=== PATIENT | female | born 1960 | race Caucasian/White ===

== ENCOUNTER 2019-08-09 08:00 | Outpatient (RCR) | payer OTHER, MEDICAID ==
[2019-08-09 11:52] LABS: BILIRUBIN,URINE NEGATIVE (NEGATIVE); CLARITY,URINE CLEAR; COLOR,URINE YELLOW; GLUCOSE, URINE (UA) NEGATIVE (NEGATIVE); KETONES,URINE NEGATIVE (NEGATIVE); LEUKOCYTE ESTERASE ,URINE 1+ (NEGATIVE); NITRITE,URINE NEGATIVE (NEGATIVE); PH,URINE 7 (5-9); PROTEIN,URINE 1+ (NEGATIVE)
[2019-08-09 11:58] LABS: BACTERIA,URINE NEGATIVE /HPF; WBC,URINE 0-2 /HPF
[2019-08-09 12:01] LABS: HEMOGLOBIN 12.8 G/DL (11.5-16.0); MEAN PLATELET VOLUME 9.5 FL (7.4-10.4); RED CELL DISTRIBUTION WIDTH 13.8 % (10.0-14.5); WHITE BLOOD COUNT 4.5 10^3/uL (4.3-11.0)
[2019-08-09 12:20] LABS: ALANINE AMINOTRANSFERASE 25 U/L (0-55); ALKALINE PHOSPHATASE 131 U/L (40-136); BILIRUBIN,TOTAL 0.3 MG/DL (0.1-1.0); BUN/CREATININE RATIO 13; CALCIUM 9.9 MG/DL (8.5-10.1); CARBON DIOXIDE 24 MMOL/L (21-32); CHLORIDE 99 MMOL/L (98-107); CHOLESTEROL 294 MG/DL (< 200); CREATININE SERUM 0.72 MG/DL (0.60-1.30); GFR ESTIMATED > 60; GLUCOSE 104 MG/DL (70-105); HDL CHOLESTEROL 83 MG/DL (40-60); POTASSIUM 4.2 MMOL/L (3.6-5.0); SODIUM 134 MMOL/L (135-145); TOTAL PROTEIN 6.9 GM/DL (6.4-8.2); TRIGLYCERIDES 141 MG/DL (<150); VLDL CHOLESTEROL 28 MG/DL (5-40)
== END 2019-11-07 | disposition home or self-care (01) ==
LOC: LAB 08:00 → EDSTATUS 08-13 15:16 → LAB 08-13 15:16
PROVIDERS: ATTEND Family Medicine
DX: F31.9 Bipolar disorder, unspecified (principal); R19.7 Diarrhea, unspecified; R31.9 Hematuria, unspecified
CPT/HCPCS: 36415; 80053; 80061; 81000; 84443; 85027; 87324; 87449; 87493

== ENCOUNTER 2020-01-10 18:46 | Emergency (ER) | payer OTHER, MEDICAID ==
[~2020-01-10] VITALS: Ht 164 cm; Wt 69.0 kg
[2020-01-10 19:35] VITALS: BP_SYST 126; BP_SYST 149; BP_SYST 153; BP_DIAS 74; BP_DIAS 86; BP_DIAS 88
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
[2020-01-10 19:42] LABS: BASOPHILS % (AUTO) 1 % (0-10); EOSINOPHILS # (AUTO) 0.1 10^3/uL (0.0-0.3); EOSINOPHILS % (AUTO) 1 % (0-10); HEMATOCRIT 41 % (35-52); HEMOGLOBIN 14.2 G/DL (11.5-16.0); LYMPHOCYTES # (AUTO) 1.5 X 10^3 (1.0-4.0); LYMPHOCYTES % (AUTO) 36 % (12-44); MEAN CORPUSCULAR HEMOGLOBIN 34 PG (25-34); MEAN CORPUSCULAR HGB CONC 35 G/DL (32-36); MEAN CORPUSCULAR VOLUME 97 FL (80-99); MEAN PLATELET VOLUME 10.6 FL (7.4-10.4); MONOCYTES # (AUTO) 0.5 X 10^3 (0.0-1.0); MONOCYTES % (AUTO) 11 % (0-12); NEUTROPHILS # (AUTO) 2.1 X 10^3 (1.8-7.8); NEUTROPHILS % (AUTO) 51 % (42-75); PLATELET COUNT 294 10^3/uL (130-400); RED CELL DISTRIBUTION WIDTH 14.6 % (10.0-14.5); WHITE BLOOD COUNT 4.1 10^3/uL (4.3-11.0)
[2020-01-10 19:54] LABS: ALANINE AMINOTRANSFERASE 19 U/L (0-55); ALBUMIN 4.2 GM/DL (3.2-4.5); ALKALINE PHOSPHATASE 97 U/L (40-136); BILIRUBIN,TOTAL 0.2 MG/DL (0.1-1.0); BUN/CREATININE RATIO 16; CALCIUM 9.2 MG/DL (8.5-10.1); CARBON DIOXIDE 20 MMOL/L (21-32); CHLORIDE 103 MMOL/L (98-107); CREATININE SERUM 0.76 MG/DL (0.60-1.30); GFR ESTIMATED > 60; GLUCOSE 95 MG/DL (70-105); POTASSIUM 3.9 MMOL/L (3.6-5.0); SODIUM 134 MMOL/L (135-145); TOTAL PROTEIN 6.8 GM/DL (6.4-8.2)
[2020-01-10] MEDS ORDERED: LACTATED RINGERS 1,000 ML IV ONE ×2 (19:58→19:59)
--- NOTE | 2020-01-10 20:00 | NUR ---
patients daughter Candelaria called. Patient verbalized this nurse can not give her any information.
[2020-01-10 20:52] LABS: BILIRUBIN,URINE NEGATIVE (NEGATIVE); CLARITY,URINE CLEAR; COLOR,URINE YELLOW; GLUCOSE, URINE (UA) NEGATIVE (NEGATIVE); KETONES,URINE NEGATIVE (NEGATIVE); LEUKOCYTE ESTERASE ,URINE NEGATIVE (NEGATIVE); NITRITE,URINE NEGATIVE (NEGATIVE); PH,URINE 6.5 (5-9); PROTEIN,URINE NEGATIVE (NEGATIVE)
[2020-01-10 20:59] LABS: BACTERIA,URINE TRACE /HPF; RBC,URINE 0-2 /HPF
--- NOTE | 2020-01-10 21:00 | NUR ---
ASSUMED PRIMARY NURSE ROLE, ATTEMPTED TO RETRIEVE STOOL CULTURE FROM PT. PT STATES SHE DID NOT FEEL LIKE SHE HAD TO GO AT THIS TIME.
[2020-01-10] MEDS ORDERED: ONDA4TAB11 PO (21:44)
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
[2020-01-10 22:46] VITALS: BP 153/85
--- OUTSIDE RECORDS SUMMARY | 2020-01-12 22:14 | XMS REPORT | Continuity of Care Document ---
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 Role Phone STAFF, NON PCP Unavailable Insurance Providers Guarantor Azul Madden Address [address] [place] [address] Payer [place] Policy Number [id number] Subscriber's Name Azul Madden Roby Relationship 18 Self / Same As Patient Effective Date [facility] Policy Number [id number] Subscriber's Name Gala Madden Relationship 01 Spouse Advance Directives Directive Response Recorded Date/Time Advance Directives No 09/01/17 4:31pm Name of DPOA CAMRYN,DAUGHTER 09/01/17 4:31pm DPOA Relationship to Patient DAUGHTER 09/01/17 4: 31pm DPOA 09/01/17 4:31pm Chief Complaint and Reason for Visit Chief Complaint Abdominal Pain Reason for Visit UTI (urinary tract infection ) Problems Medical Problem Onset Date Status Agitation Unknown Acute Anxiety Unknown Chronic Bipolar disorder Unknown Chronic Chronic back pain greater than 3 months duration Unknown Chronic Past Problems Medical Problem Onset Date Status Bronchitis Unknown Acute COPD (chronic obstructive pulmonary disease) Unknown Acute COPD exacerbation Unknown Acute Change in mental status Unknown Acute Confusion Unknown Acute Dementia Unknown Acute Hypercholesteremia Unknown Acute Hypoxia Unknown Acute Milo toxicity Unknown Acute Nasal congestion Unknown Acute Pneumonia Unknown Acute Suicide attempt Unknown Acute UTI (urinary tract infection) Unknown Acute Medications Current Home Medications Medication Dose Units Route Directions Days Qty Instructio ns Start Date Advair Discus Inhalation Twice A Day Albuterol (Albuterol Sulfate Neb) 2.5 Mg/3 Ml Vial.neb 1 Vial Nebulize Every 4-6 Hours As Needed as needed for Shortness Of Breath/Wheezing 25 Days 02/10/18 Folic Acid 1 Mg Tablet 1 Mg Oral Daily 30 Tablet Gabapentin Oral Bedtime Ibuprofen Oral Every 4 Hours As Needed Lorazepam 0.5 Mg Tablet 0.5 Mg Oral Three Times A Day Melatonin Oral Bedtime Oxcarbazepine Oral Twice A Day Quetiapine Fumarate (Seroquel) 100 Mg Tablet 100 Mg Oral Lisset ly Quetiapine Fumarate (Seroquel) 300 Mg Tablet 300 Mg Oral Bed time Salmeterol Xinafoate/Fluticasone (Advair Diskus) 250 Mcg/50 Mcg Disk 1 Puff Inhalation Twice A Day 1 Inhaler RINSE MOUTH AFTER USE Thiamine Hcl 100 Mg Tablet 100 Mg Oral Daily Trimethoprim/Sulfamethoxazole (Bactrim Ds) 800 Mg/160 Mg Tablet 1 Tablet Oral Every 12 Hours 14 Tablet 11/16/18 Ventolin Inhaler Inhalation Every 6 Yolanda rs As Needed as needed for For Air Hunger Past Home Medications Medication Directions Ordered Status Acetaminophen/Hydrocodone Bitart (Pledger) 5 Mg/325 Mg T ablet, 1-2 Tablet Oral Every 4-6 Hours As Needed as needed for For Pain Disco ntinued Albuterol (Ventolin Hfa) 90 Mcg Hfa.aer.ad, 2 Puff Inh alation Every 4-6 Hours As Needed as needed for For Coughing 07/17/17 Discontinued Amitriptyline Hcl 25 Mg Tablet, 25 Mg Oral Bedtime 09/03 Discontinued Amitriptyline Hcl 25 Mg Tablet, 25-100 Mg Oral Bedtime Discontinued Amoxicillin 875 Mg Tablet, 875 Mg Oral Every 12 Hours 07/17/17 Discontinued Atrovastatin , Oral Bedtime Discontinu ed Azithromycin (Zithromax) 250 Mg Tablet, 250 Mg Oral Daily 02/10/18 Discontinued Azithromycin 250 Mg Tablet, 250 Mg Oral Daily 09/03/17 Discontinued Baclofen 10 Mg Tablet, 10 Mg Oral Twice A Day 09/03/17 Discontinued Baclofen 20 Mg Tablet, 10-20 Mg Oral Twice A Day Discontinued Bupropion Hcl (Bupropion Hcl Er (Sr)) 150 Mg Tab.er.12 h, 150 Mg Oral Twice A Day Discontinued Cefdinir 300 Mg Capsule, 300 Mg Oral Twice A Day 09/03/17 Discontinued Cetirizine Hcl (Zyrtec) 10 Mg Tablet, 10 Mg Oral Daily 07/17/17 Discontinued Clonazepam 1 Mg Tablet, 0.5-1 Mg Oral Three Times A Day Discontinued Clonazepam (Klonopin) 1 Mg Tablet, 1 Mg Oral Twice A Day 09/18 Discontinued Gabapentin 400 Mg Capsule, 400 Mg Oral Three Times A Day 7 Discontinued Gabapentin 400 Mg Capsule, 400 Mg Oral Three Times A Day Discontinued Hydroxyzine Hcl 50 Mg Tablet, 50 Mg Oral Four Times Daily Discontinued Levothyroxine Sodium (Synthroid) 25 Mcg Tablet, 25 Mcg Oral Otis y 06/12/17 Discontinued Levothyroxine Sodium (Synthroid) 25 Mcg Tablet, 25 Mcg Oral Otis y Discontinued Milo Carbonate (Milo Carbonate Er) 300 Mg Tablet.er, 3 00 Mg Oral Bedtime 09/03/17 Discontinued Milo Carbonate (Milo Carbonate Er) 450 Mg Tablet.er, 4 50 Mg Oral Bedtime Discontinued Milo Carbonate (Milo Carbonate Er) 450 Mg Tablet.er, 4 50 Mg Oral Daily 06/12/17 Discontinued Milo Carbonate (Milo Carbonate Er) 450 Mg Tablet.er, 450 M g Oral Daily Discontinued Lorazepam (Ativan) 1 Mg Tablet, 1 Mg Oral Three Times A Day as needed for For Anxiety 06/12/17 Discontinued Lorazepam (Ativan) 1 Mg Tablet, 1 Mg Oral Three Times A Day Discontinued Meloxicam 15 Mg Tablet, 15 Mg Oral Daily 06/12/17 Discontinued Meloxicam 15 Mg Tablet, 15 Mg Oral Daily Discontinued Naltrexane , Oral Daily Discontinued Prazosin Hcl 2 Mg Capsule, 2 Mg Oral Bedtime Discontinued Prazosin Hcl 2 Mg Capsule, 2 Mg Oral Daily 06/12/17 Discontinued Prazosin Hcl 2 Mg Capsule, 2 Mg Oral Daily Discontinued Prednisone 20 Mg Tablet, 40 Mg Oral Daily 07/16/18 Discontinued Prednisone (Prednisone 40 Mg Burst) 20 Mg Tablet, 40 Mg Oral Lisset ly 02/10/18 Discontinued Prednisone 20 Mg Tablet, 20 Mg Oral Twice A Day 07/17/17 Discontinued Quetiapine Fumarate (Seroquel) 50 Mg Tablet, 50 Mg Oral Thre e Times A Day 06/12/17 Discontinued Quetiapine Fumarate (Seroquel) 50 Mg Tablet, 50 Mg Oral Three Ti mes A Day Discontinued Salmeterol Xinafoate/Fluticasone (Advair Diskus) 250 Mcg/50 Mcg Disk, 1 Puff Inhalation Twice A Day 06/12/17 Discontinued Salmeterol Xinafoate/Fluticasone (Advair Diskus) 100 Mcg/50 Mcg Disk, 1 Puff Inhalation Twice A Day Discontinued Tramadol Hcl 50 Mg Tablet, 75 Mg Oral Four Times Daily Discontinued Trazodone Hcl 150 Mg Tablet, 150 Mg Oral Bedtime Discontinued Trazodone Hcl 150 Mg Tablet, 150 Mg Oral Daily 7 Discontinued Trazodone Hcl 150 Mg Tablet, 150 Mg Oral Daily Discontinued Social History Social History Problem Response Recorded Date/Time Onset Date Status Marital Status 11/16/2018 2:59pm Not Applicable Not Ap plicable Smoking Status Start Date Stop Date Current every day smoker Hospital Discharge Instructions No hospital discharge instruction information available. Plan of Care Discharge Date 11/16/18 5:45pm Disposition 01 HOME/SELF CARE Condition at Discharge Good Instructions/Education Provided ED UTI Cystitis Female Prescriptions See Medication Section Referrals STAFF,NON Functional Status No functional status information available. Allergies, Adverse Reactions, Alerts Allergen Type Severity Reaction Status Last Updated Morphine Allergy Intermediate vomiting Active 07/16/18 Immunizations No immunization information available. Vital Signs Acute Vital Signs Vital Response Date/Time Height (Feet) 5 feet 11/16/2018 2:56pm Height (Inches) 4.00 inches 11/16/2018 2:56pm Height (Calculated Centimeters) 162.147792 cm 11/16/19 2:56pm Weight (Pounds) 155.0 11/16/2018 2:56pm Weight (Calculated Kilograms) 70.628393 kg 11/16/2018 2:56pm Weight (Calculated Grams) 92424.818 gm 11/16/2018 2:5 6pm Body Mass Index (BMI) 26 11/16/2018 2:56pm Body Mass Index (BMI) Classification Overweight 2:56pm Temperature (Fahrenheit) 98.6 degrees F (96.8 - 100.4) 11/16 2:56pm Blood Pressure Systolic 181 mm Hg (100 - 140) 11/16/2018 3:0 3pm Blood Pressure Diastolic 57 mm Hg (60 - 100) 11/16/2018 3:03 pm Pulse Rate (adult) 101 beats per minute (60 - 100) 11/16/19 3:03pm Respiratory Rate 17 breaths per minute (12 - 24) 07/16/20 4:20pm Respirations 20 breaths per minute (12 - 20) 01/15/20 19 2:56pm O2 Sat by Pulse Oximetry 97 % (90 - 100) 11/16/2018 2:56 pm Ambulatory Vital Signs Vital Response Date/Time Weight 161 lbs 4 oz 07/16/2018 3:25pm Temperature, Tympanic 97.4 degrees F 07/16/2018 3:25pm Blood Pressure, Sitting, Left Arm 120/70 mm Hg 2017 3:25pm Pulse Rate 97 bpm 07/16/2018 3:25pm Respiration Rate 18 bpm 07/16/2018 3:25pm Pulse Oximetry Pulse Oximetry 07/16/2018 3:25pm Results Laboratory Results Test Name Result Units Flags Reference Collection Date/Time Result Date/Time Comments Influenza Type A Antigen NEG NEGATIVE 02/10/2018 8:0 6pm 02/10/2018 8:44pm Influenza Type B Antigen NEG NEGATIVE 02/10/2018 8:0 6pm 02/10/2018 8:44pm Cholesterol Level 330 MG/DL H 150-200 07/16/2018 9:00am 07/03 10:13am Triglycerides Level 204 MG/DL H 30-200 07/16/2018 9:00am 10:13am HDL Cholesterol 72 MG/DL H 35-60 07/16/2018 9:00am 2017 10:13am LDL Cholesterol 218 MG/DL H <100 07/16/2018 9:00am 2017 10:13am VLDL Cholesterol, Calculated 41 H 5-40 07/16/2018 9:00am 07/16/2018 10:13am Cholesterol/HDL Ratio 5 % 0-5 07/16/2018 9:00am 07/16/2018 10:13am Prolactin 6.5 ng/mL 4.8-23.3 07/16/2018 9:00am 07/17/2018 7:09am Performed at: DA - [facility] [place] [id number] [facility] [address], [place], [place] [id number] Intelligence Specialist: ERLINDA Tao MD, Phone: [phone] Thyroid Stimulating Hormone (TSH) 1.12 MIU/L 0.35-4 .94 07/16/2018 9:00am 07/16/2018 5:11pm White Blood Count 5.2 X10-3/UL 4.8-10.8 11/16/2018 3:47pm 4:05pm Red Blood Count 4.25 X10-6/UL 4.20-5.40 11/16/2018 3:47pm 4:05pm Hemoglobin 14.1 G/DL 12.0-16.0 11/16/2018 3:47pm 9 4:05pm Hematocrit 43.7 % 37.0-47.0 11/16/2018 3:47pm 9 4:05pm Mean Corpuscular Volume 103.0 FL H 80.0-99.0 2018 3:47pm 11/16/2018 4:05pm Mean Corpuscular Hemoglobin 33.3 PG H 27.0-31.0 3:47pm 11/16/2018 4:05pm Mean Corpuscular Hemoglobin Concent 32.3 G/DL L 33.0 -37.0 11/16/2018 3:47pm 11/16/2018 4:05pm Red Cell Distribution Width 13.7 % 11.5-14.5 3:47pm 11/16/2018 4:05pm Platelet Count 277 X10-3/UL 130-400 11/16/2018 3:47pm 2018 4:05pm Neutrophils (%) (Auto) 64.1 % 40.0-75.0 11/16/2018 3:47 pm 11/16/2018 4:05pm Lymphocytes (%) (Auto) 23.7 % 18.0-47.0 11/16/2018 3:47 pm 11/16/2018 4:05pm Monocytes (%) (Auto) 10.5 % H 0.0-10.0 11/16/2018 3:47pm 11/16/2018 4:05pm Eosinophils (%) (Auto) 0.2 % 0.0-6.0 11/16/2018 3:47pm 11/16/2018 4:05pm Basophils (%) (Auto) 1.4 % 0.0-2.0 11/16/2018 3:47pm 0 11/16/2018 4:05pm Neutrophils # (Auto) 3.3 X10-3/UL 1.9-8.1 11/16/2018 3:47pm 11/16/2018 4:05pm Lymphocytes # (Auto) 1.2 X10-3/UL 0.9-5.1 11/16/2018 3:47pm 11/16/2018 4:05pm Monocytes # (Auto) 0.5 X10-3/UL 0.1-0.9 11/16/2018 3:47pm 4:05pm Eosinophils # (Auto) 0.0 X10-3/UL 0.0-0.6 11/16/2018 3:47pm 11/16/2018 4:05pm Basophils # (Auto) 0.1 X10-3/UL 0.0-0.2 11/16/2018 3:47pm 4:05pm Glucose Level 102 MG/DL 70-105 11/16/2018 3:47pm 11/16/19 19 4:21pm Blood Urea Nitrogen 14.0 MG/DL 9.8-20.1 11/16/2018 3:47pm 0 11/16/2018 4:21pm Creatinine 0.84 MG/DL 0.57-1.11 11/16/2018 3:47pm 9 4:21pm BUN/Creatinine Ratio 17 10-20 11/16/2018 3:47pm 0 11/16/2018 4:21pm Aspartate Amino Transf (AST/SGOT) 21 U/L 5-34 11/16/2018 3:47pm 11/16/2018 4:21pm Alanine Aminotransferase (ALT/SGPT) 19 U/L 0-55 11/16/2018 3:47pm 11/16/2018 4:21pm Alkaline Phosphatase 82 IU/L 40-150 11/16/2018 3:47pm 0 11/16/2018 4:21pm Total Bilirubin 0.20 MG/DL 0.0-1.0 11/16/2018 3:47pm 2018 4:21pm Total Protein 6.9 G/DL 6.4-8.3 11/16/2018 3:47pm 11/16/19 19 4:21pm Albumin 3.8 g/dL 3.5-5.0 11/16/2018 3:47pm 11/16/2018 4:2 1pm Albumin/Globulin Ratio 1.2 1.0-2.0 11/16/2018 3:47pm 11/16/2018 4:21pm Globulin 3.1 G/DL 1.9-3.8 11/16/2018 3:47pm 11/16/2018 4: 21pm Calcium Level 9.3 MG/DL 8.4-10.2 11/16/2018 3:47pm 019 4:21pm Sodium Level 140 MMOL/L 136-145 11/16/2018 3:47pm 9 4:21pm Potassium Level 4.1 MMOL/L 3.5-5.1 11/16/2018 3:47pm 2018 4:21pm Chloride Level 106 MMOL/L 98-107 11/16/2018 3:47pm 019 4:21pm Carbon Dioxide Level 23.0 MMOL/L 22-29 11/16/2018 3:47pm 0 11/16/2018 4:21pm Anion Gap 15 MEQ/L H 0-14 11/16/2018 3:47pm 11/16/2018 4 :21pm Troponin I < 0.02 NG/ML 0.00-0.06 11/16/2018 3:47pm 9 4:21pm TROPONIN I <=0.06 ng/mL Negative 0.07-0.25 ng/mL Intermediate >0.25 ng/mL Positive >0.6 ng/mL Critical Troponin I is cardiac specific. If present, indicates injury has occurred, indicating need to R/O myocardial infarct or high risk unstable angina (UA). Lipase 43 U/L 8-78 11/16/2018 3:47pm 11/16/2018 4:2 1pm Urine Color YELLOW YELLOW 11/16/2018 4:35pm 11/16/2018 5:03pm Urine Clarity SL CLOUDY CLEAR 11/16/2018 4:35pm 2018 5:03pm Urine pH 5.5 4.5-7.5 11/16/2018 4:35pm 11/16/2018 5: 03pm Urine Specific [place] 1.020 1.002-1.030 11/16 4:35pm 11/16/2018 5:03pm Urine Protein NEGATIVE NEGATIVE 11/16/2018 4:35pm 2018 5:03pm Urine Glucose (UA) NEGATIVE NEGATIVE 11/16/2018 4:35pm 0 11/16/2018 5:03pm Urine Ketones NEGATIVE NEGATIVE 11/16/2018 4:35pm 2018 5:03pm Urine Blood 1+ NEGATIVE 11/16/2018 4:35pm 9 5:03pm Urine Nitrate NEGATIVE NEGATIVE 11/16/2018 4:35pm 2018 5:03pm Urine Bilirubin NEGATIVE NEGATIVE 11/16/2018 4:35pm 11/02 5:03pm Urine Urobilinogen 0.2 EU/DL 0.2 11/16/2018 4:35pm 5:03pm Urine Leukocyte Esterase 1+ NEGATIVE 11/16/2018 4:3 5pm 11/16/2018 5:03pm Urine RBC 2-5 /HPF NONE SEEN 11/16/2018 4:35pm 11/16/2018 5:08pm Urine WBC 7-10 /HPF NONE SEEN 11/16/2018 4:35pm 11/16/2018 5:08pm Urine Bacteria 1+ /HPF NONE SEEN 11/16/2018 4:35pm 11/16 5:08pm Urine Squamous Epithelial Cells 2-5 /HPF 11/16/2018 4:35pm 11/16/2018 5:08pm Urine Transitional Epithelial Cells 0-2 /HPF 11/16/2018 4:35pm 11/16/2018 5:08pm Urine Mucus 1+ /HPF 11/16/2018 4:35pm 11/16/2018 5:08pm Urine Culture Reflexed YES H 11/16/2018 4:35pm 11/16/2018 5:08pm URINE CULTURE WAS SENT TO [facility]. Procedures Procedure Status Date Provider(s) X-RAY EXAM CHEST 1 VIEW Completed 07/16/18 ASSAY THYROID STIM HORMONE Completed 07/16/18 ASSAY OF TROPONIN QUANT Completed 07/16/18 ELECTROCARDIOGRAM TRACING Completed 07/16/18 ELECTROCARDIOGRAM REPORT Completed 07/16/18 EMERGENCY DEPT VISIT Completed 07/16/18 EMERGENCY DEPT VISIT Completed 07/16/18 Aerosol treatment by respiratory therapy Completed 8 YEN BUTLER PA-C X-ray of chest, PA and lateral views Completed 02/10/18 YEN BUTLER PA-C 2D M-mode echocardiography with color flow Completed 04/15 JACINDA RIVERO MD Electrocardiogram tracing Completed 07/16/18 NUBIA DENNIS MD X-ray of chest, single view Completed 07/16/18 NUBIA SEXTON MD Encounters Encounter Location Arrival/Admit Date Discharge/Depart Date Attending Provider Departed Emergency Room [facility] 11/16/18 2:44pm 11/16/18 5:45pm NUBIA DENNIS MD Departed Emergency Room [facility] 07/16/18 3:51pm 07/16/18 5:30pm NUBIA DENNIS MD Registered Practice [facility] 07/16/18 2:55pm TODD HARGROVE CNC MAINTENANCE TECHNICIAN Office Visit [facility] 07/16/18 2:55pm TODD HARGROVE CNC MAINTENANCE TECHNICIAN Registered Clinic [facility] 07/16/18 8:55am EMMANUEL ESCOTO Registered Clinic [facility] 04/15/18 1:09pm JACINDA EASON MD Departed Emergency Room [facility] 02/10/18 7:10pm 02/10/18 9:34pm YEN BUTLER PA-C Recent Diagnosis
--- OUTSIDE RECORDS SUMMARY | 2020-01-12 22:14 | XMS REPORT | Continuity of Care Document ---
Author Author [facility] Organization [facility] Address Unknown Phone Unavailable Care Team Providers Care Poultry Killer Name Role Phone STAFF, NON PCP Unavailable Insurance Providers Guarantor Azul Madden Address [address] [place] [address] [facility] Policy Number [id number] Subscriber's Name Azul Madden Relationship 18 Self / Same As Patient Effective Date 17 [facility] Policy Number [id number] Subscriber's Name Gala Madden Relationship 01 Spouse Advance Directives Directive Response Recorded Date/Time Advance Directives No 09/01/17 4:31pm Name of DPOA CAMRYN,DAUGHTER 09/01/17 4:31pm DPOA Relationship to Patient DAUGHTER 09/01/17 4: 31pm DPOA 09/01/17 4:31pm Chief Complaint and Reason for Visit Chief Complaint Genitourinary (Female) Reason for Visit Constipation Biliary colic Problems Medical Problem Onset Date Status Agitation Unknown Acute Anxiety Unknown Chronic Bipolar disorder Unknown Chronic Chronic back pain greater than 3 months duration Unknown Chronic Past Problems Medical Problem Onset Date Status Biliary colic Unknown Acute Bronchitis Unknown Acute COPD (chronic obstructive pulmonary disease) Unknown Acute COPD exacerbation Unknown Acute Change in mental status Unknown Acute Confusion Unknown Acute Dementia Unknown Acute Hypercholesteremia Unknown Acute Hypoxia Unknown Acute [place] toxicity Unknown Acute Nasal congestion Unknown Acute Pneumonia Unknown Acute Suicide attempt Unknown Acute UTI (urinary tract infection) Unknown Acute Medications Current Home Medications Medication Dose Units Route Directions Days Qty Instructio ns Start Date Albuterol (Albuterol Sulfate Neb) 2.5 Mg/3 Ml Vial.neb 1 Vial Nebulize Every 4-6 Hours As Needed as needed for Shortness Of Breath/Wheezing 25 Days 02/10/18 Gabapentin Oral Bedtime Ibuprofen 600 Mg Tablet 600 Mg Oral As N eeded, Up To 3 Times Daily as needed for For Fever/Pain 30 Tablet 12/09/18 Lactulose 10 Gm/15 Ml Solution 30 Ml Oral Three Times A Day as needed for For Constipation 300 Milliliter 12/19/18 Lorazepam 0.5 Mg Tablet 0.5 Mg Oral Three Times A Day Magnesium Citrate 296 Ml Solution 296 Ml Oral Give Now 1 Bottle 12/19/18 Melatonin Oral Bedtime Oxcarbazepine Oral Twice A Day Oxcarbazepine 300 Mg Tablet 600 Mg Oral Bedtime Polyethylene Glycol (Miralax) 119 Gm Powder 17 Gm Oral Otis y 119 Gram 12/09/18 Quetiapine Fumarate (Seroquel) 100 Mg Tablet 100 Mg Oral Lisset ly Quetiapine Fumarate (Seroquel Xr) 400 Mg Tab.er.24h 400 Mg Oral Every Evening Salmeterol Xinafoate/Fluticasone (Advair Diskus) 250 Mcg/50 Mcg Disk 1 Puff Inhalation Twice A Day 1 Inhaler RINSE MOUTH AFTER USE Thiamine Hcl 100 Mg Tablet 100 Mg Oral Daily Ventolin Inhaler Inhalation Every 6 Yolanda rs As Needed as needed for For Air Hunger Past Home Medications Medication Directions Ordered Status Acetaminophen/Hydrocodone Bitart ([place]) 5 Mg/325 Mg T ablet, 1-2 Tablet Oral Every 4-6 Hours As Needed as needed for For Pain Disco ntinued Advair Discus , Inhalation Twice A Day Dis continued Albuterol (Ventolin Hfa) 90 Mcg Hfa.aer.ad, 2 [...] Tablet, 10 Mg Oral Daily 07/17/17 Discontinued Ciprofloxacin 500 Mg/5 Ml Ermelinda.mc.rec, 500 Mg Oral Every 12 Hours 12/09/18 Discontinued Ciprofloxacin Hcl (Cipro) 500 Mg Tablet, 500 Mg Oral Every 12 Ho urs 12/09/18 Discontinued Clonazepam 1 Mg Tablet, 0.5-1 Mg Oral Three Times A Day Discontinued Clonazepam (Klonopin) 1 Mg Tablet, 1 Mg Oral Twice A Day 09/18 Discontinued Folic Acid 1 Mg Tablet, 1 Mg Oral Daily Discontinued Gabapentin 400 Mg Capsule, 400 Mg Oral Three Times A Day 7 Discontinued Gabapentin 400 Mg Capsule, 400 Mg Oral Three Times A Day Discontinued Hydroxyzine Hcl 50 Mg Tablet, 50 Mg Oral Four Times Daily Discontinued Ibuprofen , Oral Every 4 Hours As Needed Disco ntinued Levothyroxine Sodium (Synthroid) 25 Mcg Tablet, 25 Mcg Oral Otis y 06/12/17 Discontinued Levothyroxine Sodium (Synthroid) 25 Mcg Tablet, 25 Mcg Oral Otis y Discontinued [place] Carbonate ([place] Carbonate Er) 300 Mg Tablet.er, 3 00 Mg Oral Bedtime 09/03/17 Discontinued [place] Carbonate ([place] Carbonate Er) 450 Mg Tablet.er, 4 50 Mg Oral Bedtime Discontinued [place] Carbonate ([place] Carbonate Er) 450 Mg Tablet.er, 4 50 Mg Oral Daily 06/12/17 Discontinued [place] Carbonate ([place] Carbonate Er) 450 Mg Tablet.er, 450 M [...] A Day 07/17/17 Discontinued Quetiapine Fumarate (Seroquel) 300 Mg Tablet, 300 Mg Oral Bedtim e Discontinued Quetiapine Fumarate (Seroquel) 50 Mg Tablet, [...] Mg Tablet, 150 Mg Oral Daily Discontinued Trimethoprim/Sulfamethoxazole (Bactrim Ds) 800 Mg/160 Mg Tablet, 1 Tablet Oral Every 12 Hours 11/16/18 Discontinued Social History Social History Problem Response Recorded Date/Time Onset Date Status Marital Status Single 12/19/2018 3:34pm Not Applicable Not Ap plicable Smoking Status Start Date Stop Date Current every day smoker Hospital Discharge Instructions No hospital discharge instruction information available. Plan of Care Discharge Date 12/19/18 4:25pm Disposition 01 HOME/SELF CARE Condition at Discharge Good Instructions/Education Provided Gallstones Constipation Diet High Fiber High Fiber Handout Prescriptions See Medication Section Referrals STAFF,NON Order Date: 3-4 days Note: Additional Instructions/Education continue the miralax start three times a day lactulose-this will get your bowels moving start today taking an entire bottle of magnesium citrate I've sent both of these scripts to [facility] f/u with pcp u/s on thursday for gallbladder as already prescribed. Functional Status No functional status information available. Allergies, Adverse Reactions, Alerts Allergen Type Severity Reaction Status Last Updated Morphine Adverse Reaction Intermediate vomiting Active Immunizations No immunization information available. Vital Signs Acute Vital Signs Vital Response Date/Time Height (Feet) 5 feet 12/19/2018 3:31pm Height (Inches) 4.00 inches 12/19/2018 3:31pm Height (Calculated Centimeters) 162.162926 cm 12/19/19 19 3:31pm Weight (Pounds) 170.0 12/19/2018 3:31pm Weight (Calculated Kilograms) 77.541697 kg 12/19/2018 3:31pm Weight (Calculated Grams) 44493.704 gm 12/19/2018 3:3 1pm Body Mass Index (BMI) 29 12/19/2018 3:31pm Body Mass Index (BMI) Classification Overweight 3:31pm Temperature (Fahrenheit) 98.5 degrees F (96.8 - 100.4) 12/19 3:31pm Blood Pressure Systolic 165 mm Hg (100 - 140) 12/19/2018 3:3 1pm Blood Pressure Diastolic 90 mm Hg (60 - 100) 12/19/2018 3:31 pm Pulse Rate (adult) 98 beats per minute (60 - 100) 9 3:31pm Respiratory Rate 17 breaths per minute (12 - 24) 07/16/20 18 4:20pm Respirations 20 breaths per minute (12 - 20) 12/19/19 19 3:31pm O2 Sat by Pulse Oximetry 97 % (90 - 100) 12/19/2018 3:31 pm Ambulatory Vital Signs Vital Response Date/Time Weight 174 lbs 4 oz 12/09/2018 10:30am Temperature, Tympanic 99.8 degrees F 12/09/2018 10:30am Blood Pressure, Sitting, Left Arm 138/84 mm Hg 2018 10:30am Pulse Rate 109 bpm 12/09/2018 10:30am Respiration Rate 18 bpm 12/09/2018 10:30am Pulse Oximetry Pulse Oximetry 12/09/2018 10:30am Results Laboratory Results Test Name Result Units [...] 4.8-23.3 07/16/2018 9:00am 07/17/2018 7:09am Performed at: - [facility] [address], [place], [place] [id number] Truck Cleaner: ERLINDA Tao MD, Phone: [phone] Thyroid Stimulating Hormone (TSH) 1.12 MIU/L 0.35-4 [...] 8-78 11/16/2018 3:47pm 11/16/2018 4:2 1pm Urine Transitional Epithelial Cells 0-2 /HPF 11/16/2018 4:35pm 11/16/2018 5:08pm Urine Mucus 1+ /HPF 11/16/2018 4:35pm 11/16/2018 5:08pm Urine Color YELLOW YELLOW 12/19/2018 3:50pm 12/19/2018 3:57pm Urine Clarity Clear CLEAR 12/19/2018 3:50pm 12/19/19 19 3:57pm Urine pH 7.5 4.5-7.5 12/19/2018 3:50pm 12/19/2018 3: 57pm Urine Specific [place] 1.015 1.002-1.030 12/19 3:50pm 12/19/2018 3:57pm Urine Protein NEGATIVE NEGATIVE 12/19/2018 3:50pm 2018 3:57pm Urine Glucose (UA) NEGATIVE NEGATIVE 12/19/2018 3:50pm 0 12/19/2018 3:57pm Urine Ketones NEGATIVE NEGATIVE 12/19/2018 3:50pm 2018 3:57pm Urine Blood TRACE-INTACT NEGATIVE 12/19/2018 3:50pm 12/03 3:57pm Urine Nitrate NEGATIVE NEGATIVE 12/19/2018 3:50pm 2018 3:57pm Urine Bilirubin NEGATIVE NEGATIVE 12/19/2018 3:50pm 12/03 3:57pm Urine Urobilinogen 0.2 EU/DL 0.2 12/19/2018 3:50pm 3:57pm Urine Leukocyte Esterase TRACE NEGATIVE 12/19/2018 3:5 0pm 12/19/2018 3:57pm Urine RBC 0-2 /HPF NONE SEEN 12/19/2018 3:50pm 12/19/2018 4:00pm Urine WBC 0-2 /HPF NONE SEEN 12/19/2018 3:50pm 12/19/2018 4:00pm Urine Bacteria TRACE /HPF NONE SEEN 12/19/2018 3:50pm 12/19 4:00pm Urine Squamous Epithelial Cells 0-2 /HPF 12/19/2018 3:50pm 12/19/2018 4:00pm Urine Culture Reflexed YES H 12/19/2018 3:50pm 12/19/2018 4:00pm URINE CULTURE WAS SENT TO [facility]. Ambulatory Laboratory Results Test Name Result Units Flags Reference Result Date/Time Com ments Urine Bilirubin NEGATIVE 12/09/2018 10: 42am Urine Blood MODERATE 12/09/2018 10:42am Urine Clarity cloudy 12/09/2018 10:42 am Urine Color dark yellow 12/09/2018 10:42 am Urine Glucose (UA) NEGATIVE 12/09/2018 10:42am Urine Ketones NEGATIVE 12/09/2018 10:42 am Urine Leukocyte Esterase trace 12/09 10:42am Urine Nitrate neg 12/09/2018 10:42 am Urine pH 6.5 5.0-7.5 12/09/2018 10:42am Urine Protein TRACE 12/09/2018 10:42 am Urine Specific [place] 1.020 1.002-1.030 12/09 10:42am Urine Urobilinogen .2 MG/DL 0.2-1.0 12/09/2018 10:42am Procedures Procedure Status Date Provider(s) X-RAY EXAM [...] single view Completed 07/16/18 NUBIA SEXTON MD X-ray of abdomen, supine and upright views Completed 12/19 PEARL SMITH MD Encounters Encounter Location Arrival/Admit Date Discharge/Depart Date Attending Provider Departed Emergency Room [facility] 12/19/18 3:26pm 12/19/18 4:25pm PEARL SMITH MD Registered Referred [facility] 12/09/18 6:13pm ISABEL CARTER Registered Practice [facility] 12/09/18 10:30am ISABEL CARTER Office Visit [facility] 12/09/18 10:30am ISABEL CARTER Departed Emergency Room [facility] 11/16/18 2:44pm 11/16/18 5:45pm NUBIA DENNIS MD Departed Emergency Room [facility] 07/16/18 3:51pm 07/16/18 5:30pm NUBIA DENNIS MD Office Visit [facility] 07/16/18 2:55pm TODD HARGROVE Registered Clinic [facility] 07/16/18 8:55am EMMANUEL ESCOTO Registered Clinic [facility] 04/15/18 1:09pm JACINDA EASON MD Departed Emergency Room [facility] 02/10/18 7:10pm 02/10/18 9:34pm YEN BUTLER PA-C Recent Diagnosis
--- OUTSIDE RECORDS SUMMARY | 2020-01-12 22:15 | XMS REPORT | Continuity of Care Document ---
Author Author [facility] Organization [facility] Address Unknown Phone Unavailable Care Team Providers Care Senior Behavioral Scientist Name Role Phone STAFF, NON PCP Unavailable Insurance Providers Guarantor ChanoTariqAzul R Address [address] [place] [address] Payer [place] Policy Number [id number] Subscriber's Name Azul Madden Relationship 18 Self / Same As Patient Effective Date [facility] Policy Number [id number] Subscriber's Name Azul Madden Relationship 18 Self / Same As Patient Effective Date 12 Advance Directives Directive Response Recorded Date/Time Advance Directives No 09/01/17 4:31pm Name of DPOA CAMRYN,DAUGHTER 09/01/17 4:31pm DPOA Relationship to Patient DAUGHTER 09/01/17 4: 31pm DPOA 09/01/17 4:31pm Chief Complaint and Reason for Visit Chief Complaint Chest Pain Reason for Visit COPD (chronic obstructive pu lmonary disease) [id number] Problems Medical Problem Onset Date Status Agitation Unknown Acute Anxiety Unknown Chronic Bipolar disorder Unknown Chronic COPD (chronic obstructive pulmonary disease) Unknown Acute Chronic back pain greater than 3 months duration Unknown Chronic Hypercholesteremia Unknown Acute Past Problems Medical Problem Onset Date Status Bronchitis Unknown Acute COPD exacerbation Unknown Acute Change in mental status Unknown Acute Confusion Unknown Acute Dementia Unknown Acute Hypoxia Unknown Acute Red[place] toxicity Unknown Acute Nasal congestion Unknown Acute Pneumonia Unknown Acute Suicide attempt Unknown Acute Medications Current Home Medications Medication [...] Oral Bedtime Oxcarbazepine Oral Twice A Day Prednisone 20 Mg Tablet 40 Mg Oral Daily 7 Days 7 Tablet TAKE 2 TABS DAILY FOR 5 DAYS 07/16/18 Quetiapine Fumarate (Seroquel) 100 Mg Tablet 100 [...] Medications Medication Directions Ordered Status Acetaminophen/Hydrocodone Bitart (Palisade) 5 Mg/325 Mg T ablet, 1-2 Tablet [...] Tablet, 25 Mcg Oral Otis y Discontinued Redbird Smith Carbonate (Redbird Smith Carbonate Er) 300 Mg Tablet.er, 3 00 Mg Oral Bedtime 09/03/17 Discontinued [place] Carbonate (Redbird Smith Carbonate Er) 450 Mg Tablet.er, 4 50 Mg Oral Bedtime Discontinued [place] Carbonate (Redbird Smith Carbonate Er) 450 Mg Tablet.er, 4 50 Mg Oral Daily 06/12/17 Discontinued Redbird Smith Carbonate (Redbird Smith Carbonate Er) 450 Mg Tablet.er, 450 M [...] Capsule, 2 Mg Oral Daily Discontinued Prednisone (Prednisone 40 Mg Burst) 20 [...] Date/Time Onset Date Status Marital Status Single 07/16/2018 4:16pm Not Applicable Not Ap plicable Smoking Status Start Date Stop Date Current every day smoker Hospital Discharge Instructions No hospital discharge instruction information available. Plan of Care Discharge Date 07/16/18 5:30pm Disposition 01 HOME/SELF CARE Condition at Discharge Good Instructions/Education Provided COPD Dx Prescriptions See Medication Section Referrals STAFF,NON Note: Functional Status No functional status information available. Allergies, Adverse Reactions, Alerts Allergen Type Severity Reaction Status Last Updated Morphine Allergy Intermediate vomiting Active 07/16/18 Immunizations No immunization information available. Vital Signs Acute Vital Signs Vital Response Date/Time Height (Feet) 5 feet 07/16/2018 4:09pm Height (Inches) 4.00 inches 07/16/2018 4:09pm Height (Calculated Centimeters) 162.450974 cm 07/16/20 4:09pm Weight (Pounds) 161.0 07/16/2018 4:09pm Weight (Calculated Kilograms) 73.587413 kg 07/16/2018 4:09pm Weight (Calculated Grams) 43634.372 gm 07/16/2018 4:0 9pm Body Mass Index (BMI) 27 07/16/2018 4:09pm Body Mass Index (BMI) Classification Overweight 4:09pm Temperature (Fahrenheit) 98.2 degrees F (96.8 - 100.4) 07/16 5:15pm Blood Pressure Systolic 153 mm Hg (100 - 140) 07/16/2018 5:1 5pm Blood Pressure Diastolic 92 mm Hg (60 - 100) 07/16/2018 5:15 pm Pulse Rate (adult) 83 beats per minute (60 - 100) 8 5:15pm Respiratory Rate 17 breaths per minute (12 - 24) 07/16/20 18 4:20pm Respirations 13 breaths per minute (12 - 20) 07/16/20 18 5:15pm O2 Sat by Pulse Oximetry 98 % (90 - 100) 07/16/2018 5:15 pm Ambulatory Vital Signs Vital Response Date/Time Weight 161 lbs 4 oz 07/16/2018 3:25pm Temperature, Tympanic 97.4 degrees F 07/16/2018 3:25pm Blood Pressure, Sitting, Left Arm 120/70 mm Hg 2017 3:25pm Pulse Rate 97 bpm 07/16/2018 3:25pm Respiration Rate 18 bpm 07/16/2018 3:25pm Pulse Oximetry Pulse Oximetry 07/16/2018 3:25pm Results Laboratory Results Test Name Result Units Flags Reference Collection Date/Time Result Date/Time Comments Macrocytosis 1+ 08/21/2017 9:15am 7 10:28am Hepatitis A IgM Antibody Negative Negative 08/21 9:15am 08/22/2017 11:10am Hepatitis B Core IgM Antibody Negative Negative 08/21/2017 9:15am 08/22/2017 11:10am Hepatitis C Antibody <0.1 s/co ratio 0.0-0.9 08/21/20 17 9:15am 08/22/2017 11:10am Negati ve: < 0.8 Indeterminate: 0.8 - 0.9 Positive: > 0.9 The CDC recommends that a positive HCV antibody result be followed up with a HCV Nucleic Acid Amplification test ([id number]). Performed at: [facility] [id number] Benefit Director: ERLINDA Tao MD, Phone: [phone] Eosinophils % (Manual) 1 % 0-6 09/01/2017 10:54a m 09/01/2017 11:24am Basophils % (Manual) 1 % 0-2 09/01/2017 10:54am 09/01/2017 11:24am Eosinophils # (Manual) 0.1 X10-3/UL 0.0-0.6 017 10:54am 09/01/2017 11:24am Basophils # (Manual) 0.1 X10-3/UL 0.0-0.2 7 10:54am 09/01/2017 11:24am D-Dimer 311 NG/ML 0-400 09/01/2017 10:54am 09/01/2017 1: 29pm Blood Gas Puncture Site RIGHT RADIAL 09/01/2017 1:35pm 09/01/2017 1:48pm FiO2 28 % 09/01/2017 1:35pm 09/01/2017 1:4 8pm Arterial Blood pH 7.40 7.35-7.45 09/01/2017 1:35pm 1:48pm Arterial Blood Partial Pressure CO2 36 mmHg 35-4 8 09/01/2017 1:35pm 09/01/2017 1:48pm Arterial Blood Partial Pressure O2 65 mmHg L 80-10 0 09/01/2017 1:35pm 09/01/2017 1:48pm Arterial Blood Hemoglobin 14.5 g/dL 12.0-16.0 08/04 1:35pm 09/01/2017 1:48pm Arterial Blood Oxygen Saturation 93 % >=95 09/01/2017 1:35pm 09/01/2017 1:48pm Arterial Blood HCO3 22 mmol/L 21-28 09/01/2017 1:35pm 1:48pm Arterial Blood Total CO2 23.2 mmol/L 22-29 09/01 1:35pm 09/01/2017 1:48pm Arterial Blood Base Excess -2.3 mmol/L L -2.0-2.0 1:35pm 09/01/2017 1:48pm Bedside Blood Gas Base Excess ECF -2.8 mmol/L L -2.0-3 .0 09/01/2017 1:35pm 09/01/2017 1:48pm Chandan Test PASS 09/01/2017 1:35pm 09/01/2017 1:48pm N/A 5 /MINS 09/01/2017 1:35pm 09/01/2017 1:4 8pm Hemoglobin (Blood Gas) PROVIDER NOTIFIED OF RESULTS. g/dL 14.0-18.0 09/01/2017 1:35pm 09/01/2017 1:48pm Lactic Acid Level 0.8 MMOL/L 0.5-2.2 09/01/2017 10:54am 1:20pm Ammonia 24.0 UMOL/L 18.2-72.2 09/01/2017 10:54am 09/01/2017 11:15am Urine Amorphous Sediment TRACE /HPF 09/01/2017 10:2 0am 09/01/2017 11:20am Differential Total Cells Counted 100 100 09/07/2017 5:00pm 09/07/2017 6:28pm Neutrophils % (Manual) 85 % H 40-75 09/07/2017 5:00pm 09/07/2017 6:28pm Band Neutrophils % 2 % 0-8 09/07/2017 5:00pm 04/2017 6:28pm Lymphocytes % (Manual) 11 % L 18-47 09/07/2017 5:00pm 09/07/2017 6:28pm Monocytes % (Manual) 2 % 0-10 09/07/2017 5:00pm 1 11/07/2016 6:28pm Neutrophils # (Manual) 9.4 X10-3/UL H 1.9-8.1 017 5:00pm 09/07/2017 6:28pm Band Neutrophils # 0.2 X10-3/UL 0.0-0.9 09/07/2017 5:00pm 6:28pm Lymphocytes # (Manual) 1.2 X10-3/UL 0.9-5.1 017 5:00pm 09/07/2017 6:28pm Monocytes # (Manual) 0.2 X10-3/UL 0.1-0.9 09/07/2017 5:00pm 09/07/2017 6:28pm Red Cell Morphology Comment NORMAL 09/07/2017 5 :00pm 09/07/2017 6:28pm EGFR Other 57.1 * >59 09/07/2017 5:00pm 09/07/2017 6:34pm *RESULT UNITS: ML/MIN/1.73 EGFR 65.8 * >59 09/07/2017 5:00pm 09/07/2017 6:34pm *RESULT UNITS: ML/MIN/1.73 Serum Alcohol < 10 MG/DL <10 09/07/2017 5:00pm 09/07/20 17 6:33pm Acetaminophen Level < 0.6 UG/ML L 10-30 09/07/2017 5:00pm 6:33pm Redbird Smith Level > 3.5 MMOL/L *H 1.0-1.2 09/07/2017 5:00pm 09/07/20 17 6:33pm MICHELINE CALLED TO [facility] IN ED AT 1830 Urine Phencyclidine Screen NEG NEG 09/07/2017 6: 30pm 09/07/2017 6:48pm Urine Benzodiazepines Screen NEG NEG 09/07/2017 6:30pm 09/07/2017 6:48pm Urine Cocaine Screen NEG NEG 09/07/2017 6:30pm 1 11/07/2016 6:48pm Urine Amphetamines Screen NEG NEG 09/07/2017 6:3 0pm 09/07/2017 6:48pm Urine Marijuana (THC) Screen NEG NEG 09/07/2017 6:30pm 09/07/2017 6:48pm Urine Opiates Screen NEG NEG 09/07/2017 6:30pm 1 11/07/2016 6:48pm Urine Barbiturates Screen NEG NEG 09/07/2017 6:3 0pm 09/07/2017 6:48pm Urine Tricyclic Antidepressants POS NEG 09/07/20 17 6:30pm 09/07/2017 6:48pm Chain of Custody COCUST 09/07/2017 6:30pm 09/07 6:48pm Specimen analysis was performed without chain of custody handling. These results should be used for medical purposes only and not for any legal or employment evaluation purposes. Urine Color YELLOW YELLOW 09/07/2017 6:30pm 09/07/2017 6:39pm Urine Clarity Clear CLEAR 09/07/2017 6:30pm 09/07/20 17 6:39pm Urine pH 7.5 4.5-7.5 09/07/2017 6:30pm 09/07/2017 6: 39pm Urine Specific [place] 1.010 1.002-1.030 09/07 6:30pm 09/07/2017 6:39pm Urine Protein NEGATIVE NEGATIVE 09/07/2017 6:30pm 2016 6:39pm Urine Glucose (UA) NEGATIVE NEGATIVE 09/07/2017 6:30pm 1 11/07/2016 6:39pm Urine Ketones TRACE NEGATIVE 09/07/2017 6:30pm 017 6:39pm Urine Blood NEGATIVE NEGATIVE 09/07/2017 6:30pm 09/07/20 17 6:39pm Urine Nitrate NEGATIVE NEGATIVE 09/07/2017 6:30pm 2016 6:39pm Urine Bilirubin NEGATIVE NEGATIVE 09/07/2017 6:30pm 110 04/2017 6:39pm Urine Urobilinogen 0.2 EU/DL 0.2 09/07/2017 6:30pm 04/2017 6:39pm Urine Leukocyte Esterase NEGATIVE NEGATIVE 09/07 6:30pm 09/07/2017 6:39pm Urine RBC NONE SEEN /HPF NONE SEEN 09/07/2017 6:30pm 09/07/20 17 6:49pm Urine WBC NONE SEEN /HPF NONE SEEN 09/07/2017 6:30pm 09/07/20 17 6:49pm Urine Bacteria NONE SEEN /HPF NONE SEEN 09/07/2017 6:30pm 04/2017 6:49pm Urine Squamous Epithelial Cells NONE SEEN /HPF 09/07/2017 6:30pm 09/07/2017 6:49pm Urine Culture Reflexed NO 09/07/2017 6:30pm 09/07/2017 6:49pm C. difficile Toxin B Gene (PCR) NEGATIVE NEGATIVE 09/07/2017 8:30pm 09/07/2017 9:39pm Influenza Type A Antigen NEG NEGATIVE 02/10/2018 8:0 6pm 02/10/2018 8:44pm Influenza Type B Antigen NEG NEGATIVE 02/10/2018 8:0 6pm 02/10/2018 8:44pm White Blood Count 4.2 X10-3/UL L 4.8-10.8 07/16/2018 9:00am 9:49am Red Blood Count 4.57 X10-6/UL 4.20-5.40 07/16/2018 9:00am 9:49am Hemoglobin 14.9 G/DL 12.0-16.0 07/16/2018 9:00 8 9:49am Hematocrit 44.8 % 37.0-47.0 07/16/2018 9:00 8 9:49am Mean Corpuscular Volume 98.2 FL 80.0-99.0 07/16/2018 9:0 0am 07/16/2018 9:49am Mean Corpuscular Hemoglobin 32.6 PG H 27.0-31.0 9:00am 07/16/2018 9:49am Mean Corpuscular Hemoglobin Concent 33.2 G/DL 33.0 -37.0 07/16/2018 9:00am 07/16/2018 9:49am Red Cell Distribution Width 14.8 % H 11.5-14.5 9:00am 07/16/2018 9:49am Platelet Count 307 X10-3/UL 130-400 07/16/2018 9:00am 2017 9:49am Neutrophils (%) (Auto) 62.1 % 40.0-75.0 07/16/2018 9:00 am 07/16/2018 9:49am Lymphocytes (%) (Auto) 26.7 % 18.0-47.0 07/16/2018 9:00 am 07/16/2018 9:49am Monocytes (%) (Auto) 9.3 % 0.0-10.0 07/16/2018 9:00am 07/16/2018 9:49am Eosinophils (%) (Auto) 0.2 % 0.0-6.0 07/16/2018 9:00am 07/16/2018 9:49am Basophils (%) (Auto) 1.7 % 0.0-2.0 07/16/2018 9:00am 0 07/16/2018 9:49am Neutrophils # (Auto) 2.6 X10-3/UL 1.9-8.1 07/16/2018 9:00am 07/16/2018 9:49am Lymphocytes # (Auto) 1.1 X10-3/UL 0.9-5.1 07/16/2018 9:00am 07/16/2018 9:49am Monocytes # (Auto) 0.4 X10-3/UL 0.1-0.9 07/16/2018 9:00am 9:49am Eosinophils # (Auto) 0.0 X10-3/UL 0.0-0.6 07/16/2018 9:00am 07/16/2018 9:49am Basophils # (Auto) 0.1 X10-3/UL 0.0-0.2 07/16/2018 9:00am 9:49am Glucose Level 91 MG/DL 70-105 07/16/2018 9:00am 07/16/20 18 10:13am Blood Urea Nitrogen 12.0 MG/DL 9.8-20.1 07/16/2018 9:00am 0 07/16/2018 10:13am Creatinine 0.77 MG/DL 0.57-1.11 07/16/2018 9:00am 8 10:13am BUN/Creatinine Ratio 16 10-20 07/16/2018 9:00am 0 07/16/2018 10:13am Aspartate Amino Transf (AST/SGOT) 24 U/L 5-34 07/16/2018 9:00am 07/16/2018 10:13am Alanine Aminotransferase (ALT/SGPT) 19 U/L 0-55 07/16/2018 9:00am 07/16/2018 10:13am Alkaline Phosphatase 83 IU/L 40-150 07/16/2018 9:00am 0 07/16/2018 10:13am Total Bilirubin 0.40 MG/DL 0.0-1.0 07/16/2018 9:00am 2017 10:13am Total Protein 7.1 G/DL 6.4-8.3 07/16/2018 9:00am 07/16/20 18 10:13am Albumin 3.6 g/dL 3.5-5.0 07/16/2018 9:00am 07/16/2018 10: 13am Albumin/Globulin Ratio 1.0 1.0-2.0 07/16/2018 9:00am 07/16/2018 10:13am Globulin 3.5 G/DL 1.9-3.8 07/16/2018 9:00am 07/16/2018 10 :13am Cholesterol Level 330 MG/DL H 150-200 07/16/2018 9:00am 07/03 10:13am Triglycerides Level 204 MG/DL H 30-200 07/16/2018 9:00am 10:13am Calcium Level 9.2 MG/DL 8.4-10.2 07/16/2018 9:00am 018 10:13am Sodium Level 135 MMOL/L L 136-145 07/16/2018 9:00am 8 10:13am Potassium Level 3.8 MMOL/L 3.5-5.1 07/16/2018 9:00am 2017 10:13am Chloride Level 103 MMOL/L 98-107 07/16/2018 9:00am 018 10:13am Carbon Dioxide Level 20.0 MMOL/L L 22-29 07/16/2018 9:00am 0 07/16/2018 10:13am Anion Gap 16 MEQ/L H 0-14 07/16/2018 9:00am 07/16/2018 1 0:13am HDL Cholesterol 72 MG/DL H 35-60 07/16/2018 9:00am 2017 10:13am LDL Cholesterol 218 MG/DL H <100 07/16/2018 9:00am 2017 10:13am VLDL Cholesterol, Calculated 41 H 5-40 07/16/2018 9:00am 07/16/2018 10:13am Cholesterol/HDL Ratio 5 % 0-5 07/16/2018 9:00am 07/16/2018 10:13am Thyroid Stimulating Hormone (TSH) 1.12 MIU/L 0.35-4 .94 07/16/2018 9:00am 07/16/2018 5:11pm Troponin I < 0.02 NG/ML 0.00-0.06 07/16/2018 9:00am 8 5:11pm TROPONIN I <=0.06 ng/mL Negative 0.07-0.25 ng/mL Intermediate >0.25 ng/mL Positive >0.6 ng/mL Critical Troponin I is cardiac specific. If present, indicates injury has occurred, indicating need to R/O myocardial infarct or high risk unstable angina (UA). Pending Laboratory Results Test Name Collection Date/Time Prolactin 07/16/2018 9:00am Procedures Procedure Status Date Provider(s) EMERGENCY DEPT VISIT Completed 07/16/17 CHEST X-RAY 2VW FRONTAL&LATL Completed 07/17/17 EMERGENCY DEPT VISIT Completed 07/17/17 EMERGENCY DEPT VISIT Completed 07/17/17 ROUTINE VENIPUNCTURE Completed 08/21/17 COMPREHEN METABOLIC PANEL Completed 08/21/17 LIPID PANEL Completed 08/21/17 ACUTE HEPATITIS PANEL Completed 08/21/17 ASSAY OF LITHIUM Completed 08/21/17 ASSAY THYROID STIM HORMONE Completed 08/21/17 COMPLETE CBC W/AUTO DIFF WBC Completed 08/21/17 HIV-1/HIV-2 1 RESULT ANTBDY Completed 08/21/17 THER/PROPH/DIAG IV INF INIT Completed 09/01/17 ROUTINE VENIPUNCTURE Completed 09/07/17 CHEST X-RAY 1 VIEW FRONTAL Completed 09/07/17 COMPREHEN METABOLIC PANEL Completed 09/07/17 ASSAY OF LITHIUM Completed 09/07/17 DRUG TEST PRSMV DIR OPT OBS Completed 09/07/17 URINALYSIS AUTO W/SCOPE Completed 09/07/17 ASSAY OF TROPONIN QUANT Completed 09/07/17 BL SMEAR W/DIFF WBC COUNT Completed 09/07/17 COMPLETE CBC AUTOMATED Completed 09/07/17 IADNA-DNA/RNA PROBE TQ 12-25 Completed 09/07/17 ELECTROCARDIOGRAM TRACING Completed 09/07/17 ELECTROCARDIOGRAM REPORT Completed 09/07/17 HYDRATE IV INFUSION ADD-ON Completed 09/07/17 HYDRATE IV INFUSION ADD-ON Completed 09/07/17 THER/PROPH/DIAG INJ SC/IM Completed 09/07/17 THER/PROPH/DIAG INJ IV PUSH Completed 09/07/17 EMERGENCY DEPT VISIT Completed 09/07/17 EMERGENCY DEPT VISIT Completed 09/07/17 DRUG TEST DEF 1-7 CLASSES Completed 09/07/17 DRUG TEST DEF 1-7 CLASSES Completed 09/07/17 HALOPERIDOL INJECTION Completed 09/07/17 LORAZEPAM INJECTION Completed 09/07/17 NORMAL SALINE SOLUTION INFUS Completed 09/07/17 X-ray of chest, PA and lateral views Completed 07/17/17 TERRENCE TRIPP DO Electrocardiogram tracing Completed 09/01/[address] Head WO contrast Completed 09/01/17 NUBIA DENNIS MD XR acute abdominal series Completed 09/01/[address] chest w contrast Completed 09/01/17 NUBIA DENNIS MD Arterial blood gas Completed 09/01/17 NUBIA DENNIS MD Aerosol treatment by respiratory therapy Completed NUBIA DENNIS MD Assessment of oxygen delivery Completed 09/01/17 LUPIS ABARCA MD, FACP Assessment of oxygen delivery Completed 09/01/17 LUPIS ABARCA MD, FACP Aerosol treatment by respiratory therapy Completed LUPIS MARTINEZ MD, FACP Aerosol treatment by respiratory therapy Completed LUPIS MARTINEZ MD, FACP Administration of oxygen Completed 09/01/17 Wilma MARTINEZ MD, FACP Respiratory assistance for 15 minutes Completed 09/01/17 LUPIS MARTINEZ MD, FACP X-ray of chest, PA and lateral views Completed 09/03/17 ROSETTE MCKENNA DO Electrocardiogram tracing Completed 09/07/17 NUBIA DENNIS MD X-ray of chest, single view Completed 09/07/17 NUBIA SEXTON MD Aerosol treatment by respiratory therapy Completed 8 YEN BUTLER PA-C X-ray of chest, PA and lateral views Completed 02/10/18 YEN BUTLER PA-C 2D M-mode echocardiography with color flow Completed 04/15 JACINDA RIVERO MD Electrocardiogram tracing Completed 07/16/18 NUBIA DENNIS MD X-ray of chest, single view Completed 07/16/18 NUBIA SEXTON MD Encounters Encounter Location Arrival/Admit Date Discharge/Depart Date Attending Provider Departed Emergency Room [facility] 07/16/18 3:51pm 07/16/18 5:30pm NUBIA DENNIS MD Registered Practice [facility] 07/16/18 2:55pm TODD HARGROVE RIB KNITTER Office Visit [facility] 07/16/18 2:55pm TODD HARGROVE RIB KNITTER Registered Clinic [facility] 07/16/18 8:55am EMMANUEL ESCOTO Registered Clinic [facility] 04/15/18 1:09pm JACINDA EASON MD Departed Emergency Room [facility] 02/10/18 7:10pm 02/10/18 9:34pm YEN BUTLER PA-C Departed Emergency Room [facility] 09/07/17 5:36pm 09/08/17 12:39am RENALDO BUTLER PA-C Discharged Inpatient [facility] 09/01/17 2:45pm 09/03/17 11: 20am LUPIS MARTINZE FACP, MD Registered Clinic [facility] 08/21/17 9:10am HUMERA HOBBS PA-C Departed Emergency Room [facility] 07/17/17 9:40am 07/17/17 11:17aTERRENCE Faith DO Departed Emergency Room [facility] 07/16/17 6:57pm 07/17/17 2:11am EMMANUEL MURCIA Recent Diagnosis
--- OUTSIDE RECORDS SUMMARY | 2020-01-12 22:15 | XMS REPORT | Continuity of Care Document ---
Author [facility] Address Unknown Phone Unavailable Care Team Providers Care Crusher Feeder Name Role Phone LIBERTAD HUMPHRIES PA-C PCP Insurance Providers Guarantor Azul Madden Address [address] [place] [address] -daug Payer [place] Policy Number [id number] Subscriber's Name Azul Madden Relationship 18 Self / Same As Patient Effective Date 17 Payer For Life Policy Number [id number] Subscriber's Name ChanoGala Roby Relationship 01 Effective Date 12 Advance Directives Directive Response Recorded Date/Time Advance Directives No 06/12/17 2:17pm Chief Complaint and Reason for Visit Chief Complaint Altered Mental Status Reason for Visit Dementia Change in mental status Problems Medical Problem Onset Date Status Anxiety Unknown Chronic Bipolar disorder Unknown Chronic Chronic back pain greater than 3 months duration Unknown Chronic Past Problems Medical Problem Onset Date Status Change in mental status Unknown Acute Dementia Unknown Acute Medications Current Home Medications Medication Dose Units Route Directions Days Qty Instructio ns Start Date Clonazepam (Klonopin) 1 Mg Tablet 1 Mg Oral Twice A Day 60 Tablet 06/12/17 Gabapentin 400 Mg Capsule 400 Mg Oral Three Times A Day 90 Capsule 06/12/17 Levothyroxine Sodium (Synthroid) 25 Mcg Tablet 25 Mcg Oral D aily 30 Tablet 06/12/17 [place] Carbonate ([place] Carbonate Er) 450 Mg Tablet.er 450 Mg Oral Bedtime Lorazepam (Ativan) 1 Mg Tablet 1 Mg Oral Three Times A Day as needed for For Anxiety 30 Tablet 06/12/17 Meloxicam 15 Mg Tablet 15 Mg Oral Daily 30 Tablet 06/12/17 Prazosin Hcl 2 Mg Capsule 2 Mg Oral Bedtime Quetiapine Fumarate (Seroquel) 50 Mg Tablet 50 Mg Oral Three Times A Day 100 Tablet ALSO USE NEEDED FOR ANXIETY 06/12/17 Salmeterol Xinafoate/Fluticasone (Advair Diskus) 250 Mcg/50 Mcg Disk 1 Puff Inhalation Twice A Day 1 Inhaler RINSE MOUTH AFTER USE Tramadol Hcl 50 Mg Tablet 75 Mg Oral Four Times Daily Trazodone Hcl 150 Mg Tablet 150 Mg Oral Bedtime Past Home Medications Medication Directions Ordered Status Gabapentin 400 Mg Capsule, 400 Mg Oral Three Times A Day Discontinued Levothyroxine Sodium (Synthroid) 25 Mcg Tablet, 25 Mcg Oral Otis y Discontinued [place] Carbonate ([place] Carbonate Er) 450 Mg Tablet.er, 4 50 Mg Oral Daily 06/12/17 Discontinued [place] Carbonate ([place] Carbonate Er) 450 Mg Tablet.er, 450 M g Oral Daily Discontinued Lorazepam (Ativan) 1 Mg Tablet, 1 Mg Oral Three Times A Day Discontinued Meloxicam 15 Mg Tablet, 15 Mg Oral Daily Discontinued Prazosin Hcl 2 Mg Capsule, 2 Mg Oral Daily 06/12/17 Discontinued Prazosin Hcl 2 Mg Capsule, 2 Mg Oral Daily Discontinued Quetiapine Fumarate (Seroquel) 50 Mg Tablet, 50 Mg Oral Three Ti mes A Day Discontinued Salmeterol Xinafoate/Fluticasone (Advair Diskus) 100 Mcg/50 Mcg Disk, 1 Puff Inhalation Twice A Day Discontinued Trazodone Hcl 150 Mg Tablet, 150 Mg Oral Daily 7 Discontinued Trazodone Hcl 150 Mg Tablet, 150 Mg Oral Daily Discontinued Social History Social History Problem Response Recorded Date/Time Onset Date Status Marital Status 06/17/2017 9:45am Not Applicable Not Ap plicable Smoking Status Start Date Stop Date Current every day smoker Hospital Discharge Instructions No hospital discharge instruction information available. Plan of Care Discharge Date 06/17/17 4:35pm Disposition 65 OTHER [facility] Condition at Discharge Good Prescriptions See Medication Section Referrals LIBERTAD HUMPHRIES PA-C Address: [address] [place] [address] Functional Status No functional status information available. Allergies, Adverse Reactions, Alerts No known allergies. Immunizations No immunization information available. Vital Signs Acute Vital Signs Vital Response Date/Time Height (Feet) 5 feet 06/17/2017 9:45am Height (Inches) 4.00 inches 06/17/2017 9:45am Height (Calculated Centimeters) 162.538482 cm 06/17/20 9:45am Weight (Pounds) 128.0 06/17/2017 9:45am Weight (Ounces) 8.0 oz 06/17/2017 9:45am Weight (Calculated Kilograms) 58.334112 kg 06/17/2017 9:45am Weight (Calculated Grams) 14984.620 gm 06/17/2017 9:4 5am Body Mass Index (BMI) 22 06/17/2017 9:45am Body Mass Index (BMI) Classification Normal Weight 9:45am Temperature (Fahrenheit) 98.3 degrees F (96.8 - 100.4) 06/17 4:35pm Blood Pressure Systolic 110 mm Hg (100 - 140) 06/17/2017 4:3 5pm Blood Pressure Diastolic 72 mm Hg (60 - 100) 06/17/2017 4:35 pm Pulse Rate (adult) 70 beats per minute (60 - 100) 7 4:35pm Respirations 15 breaths per minute (12 - 20) 06/17/20 17 4:35pm O2 Sat by Pulse Oximetry 100 % (90 - 100) 06/17/2017 4:35 pm Ambulatory Vital Signs Vital Response Date/Time Height 5 ft 4 in 06/12/2017 1:22pm Weight 153 lbs 14.097 oz 06/12/2017 1:22pm Temperature, Tympanic 98.5 degrees F 06/12/2017 1:22pm Blood Pressure, Sitting, Left Arm 104/60 mm Hg 2016 1:22pm Pulse Rate 86 bpm 06/12/2017 1:22pm Respiration Rate 20 bpm 06/12/2017 1:22pm Body Surface Area 1.79 m2 06/12/2017 1:22pm Body Mass Index 26.4 kg/m2 06/12/2017 1:22pm Pulse Oximetry Pulse Oximetry 06/12/2017 1:22pm Results Laboratory Results Test Name Result Units Flags Reference Collection Date/Time Result Date/Time Comments Thyroid Stimulating Hormone (TSH) 1.92 MIU/ML 0.35-4 .94 06/12/2017 2:21pm 06/12/2017 3:31pm Direct Bilirubin 0.10 MG/DL 0-0.5 06/12/2017 2:21pm 06/12 3:31pm Indirect Bilirubin 0.20 MG/DL 0.10-0.80 06/12/2017 2:21pm 0 06/12/2017 3:31pm White Blood Count 4.0 X10-3/UL L 4.8-10.8 06/17/2017 9:53am 10:26am Red Blood Count 4.65 X10-6/UL 4.20-5.40 06/17/2017 9:53am 10:26am Hemoglobin 14.1 G/DL 12.0-16.0 06/17/2017 9:53am 7 10:26am Hematocrit 43.9 % 37.0-47.0 06/17/2017 9:53am 7 10:26am Mean Corpuscular Volume 94.4 FL 80.0-99.0 2016 9:53am 06/17/2017 10:26am Mean Corpuscular Hemoglobin 30.2 PG 27.0-31.0 9:53am 06/17/2017 10:26am Mean Corpuscular Hemoglobin Concent 32.1 G/DL L 33.0 -37.0 06/17/2017 9:53am 06/17/2017 10:26am Red Cell Distribution Width 12.8 % 11.5-14.5 9:53am 06/17/2017 10:26am Platelet Count 280 X10-3/UL 130-400 06/17/2017 9:53am 2016 10:26am Neutrophils (%) (Auto) 64.1 % 40.0-75.0 06/17/2017 9:53 am 06/17/2017 10:26am Lymphocytes (%) (Auto) 24.2 % 18.0-47.0 06/17/2017 9:53 am 06/17/2017 10:26am Monocytes (%) (Auto) 7.1 % 0.0-10.0 06/17/2017 9:53am 06/17/2017 10:26am Eosinophils (%) (Auto) 3.0 % 0.0-6.0 06/17/2017 9:53am 06/17/2017 10:26am Basophils (%) (Auto) 1.6 % 0.0-2.0 06/17/2017 9:53am 0 06/17/2017 10:26am Neutrophils # (Auto) 2.6 X10-3/UL 1.9-8.1 7 9:53am 06/17/2017 10:26am Lymphocytes # (Auto) 1.0 X10-3/UL 0.9-5.1 7 9:53am 06/17/2017 10:26am Monocytes # (Auto) 0.3 X10-3/UL 0.1-0.9 06/17/2017 9:53am 10:26am Eosinophils # (Auto) 0.1 X10-3/UL 0.0-0.6 7 9:53am 06/17/2017 10:26am Basophils # (Auto) 0.1 X10-3/UL 0.0-0.2 06/17/2017 9:53am 10:26am Glucose Level 97 MG/DL 70-105 06/17/2017 9:53am 06/17/20 17 10:48am Blood Urea Nitrogen 16.0 MG/DL 9.8-20.1 06/17/2017 9:53am 0 06/17/2017 10:48am Creatinine 1.00 MG/DL 0.57-1.11 06/17/2017 9:53am 7 10:48am BUN/Creatinine Ratio 16 10-20 06/17/2017 9:53am 0 06/17/2017 10:48am EGFR Other 63.1 * >59 06/17/2017 9:53am 06/17/2017 10:48am *RESULT UNITS: ML/MIN/1.73 EGFR 72.8 * >59 06/17/2017 9:53am 06/17/2017 10:48am *RESULT UNITS: ML/MIN/1.73 Aspartate Amino Transf (AST/SGOT) 28 U/L 5-34 06/17/2017 9:53am 06/17/2017 10:48am Alanine Aminotransferase (ALT/SGPT) 16 U/L 0-55 06/17/2017 9:53am 06/17/2017 10:48am Alkaline Phosphatase 73 IU/L 40-150 06/17/2017 9:53am 0 06/17/2017 10:48am Total Bilirubin 0.60 MG/DL 0.0-1.0 06/17/2017 9:53am 2016 10:48am Total Protein 7.5 G/DL 6.4-8.3 06/17/2017 9:53am 06/17/20 17 10:48am Albumin 4.0 g/dL 3.5-5.0 06/17/2017 9:53am 06/17/2017 10: 48am Albumin/Globulin Ratio 1.1 1.0-2.0 06/17/2017 9:53am 06/17/2017 10:48am Globulin 3.5 G/DL 1.9-3.8 06/17/2017 9:53am 06/17/2017 10 :48am Calcium Level 10.6 MG/DL H 8.4-10.2 06/17/2017 9:53am 017 10:48am Sodium Level 140 MMOL/L 136-145 06/17/2017 9:53am 7 10:48am Potassium Level 3.9 MMOL/L 3.5-5.1 06/17/2017 9:53am 2016 10:48am Chloride Level 109 MMOL/L H 98-107 06/17/2017 9:53am 017 10:48am Carbon Dioxide Level 24.0 MMOL/L 22-29 06/17/2017 9:53am 0 06/17/2017 10:48am Anion Gap 11 MEQ/L 0-14 06/17/2017 9:53am 06/17/2017 1 0:48am Serum Alcohol < 10 MG/DL <10 06/17/2017 9:53am 06/17/20 17 10:53am Acetaminophen Level < 0.6 UG/ML L 10-30 06/17/2017 9:53am 10:53am [place] Level 0.8 MMOL/L L 1.0-1.2 06/17/2017 9:53am 06/17/20 17 10:44am Salicylates Level < 5.0 MG/DL L 15.0-30.0 06/17/2017 9:53am 10:53am Urine Phencyclidine Screen NEG NEG 06/17/2017 10 :10am 06/17/2017 10:44am Urine Benzodiazepines Screen POS NEG 06/17/2017 10:10am 06/17/2017 10:44am Urine Cocaine Screen NEG NEG 06/17/2017 10:10am 06/17/2017 10:44am Urine Amphetamines Screen POS NEG 06/17/2017 10: 10am 06/17/2017 10:44am Urine Marijuana (THC) Screen NEG NEG 06/17/2017 10:10am 06/17/2017 10:44am Urine Opiates Screen NEG NEG 06/17/2017 10:10am 06/17/2017 10:44am Urine Barbiturates Screen NEG NEG 06/17/2017 10: 10am 06/17/2017 10:44am Urine Tricyclic Antidepressants POS NEG 06/17/2017 10:10am 06/17/2017 10:44am Chain of Custody COCUST 06/17/2017 10:10am 06/02 10:44am Specimen analysis was performed without chain of custody handling. These results should be used for medical purposes only and not for any legal or employment evaluation purposes. Urine Color YELLOW YELLOW 06/17/2017 11:10am 7 11:32am Urine Clarity Clear CLEAR 06/17/2017 11:10am 017 11:32am Urine pH 6.0 4.5-7.5 06/17/2017 11:10am 06/17/2017 1 1:32am Urine Specific [place] <= 1.005 1.002-1.030 06/17 11:10am 06/17/2017 11:32am Urine Protein NEGATIVE NEGATIVE 06/17/2017 11:10am 06/17 11:32am Urine Glucose (UA) NEGATIVE NEGATIVE 06/17/2017 11:10am 06/17/2017 11:32am Urine Ketones NEGATIVE NEGATIVE 06/17/2017 11:10am 06/17 11:32am Urine Blood TRACE-INTACT NEGATIVE 06/17/2017 11:10am 11:32am Urine Nitrate NEGATIVE NEGATIVE 06/17/2017 11:10am 06/17 11:32am Urine Bilirubin NEGATIVE NEGATIVE 06/17/2017 11:10am 11:32am Urine Urobilinogen 0.2 EU/DL 0.2 06/17/2017 11:10am 11:32am Urine Leukocyte Esterase NEGATIVE NEGATIVE 06/17 11:10am 06/17/2017 11:32am Urine RBC 0-2 /HPF NONE SEEN 06/17/2017 11:10am 7 11:40am Urine WBC 0-2 /HPF NONE SEEN 06/17/2017 11:10am 7 11:40am Urine Bacteria TRACE /HPF NONE SEEN 06/17/2017 11:10am 06/02 11:40am Urine Squamous Epithelial Cells 0-2 /HPF 06/17/2017 11:10am 06/17/2017 11:40am Urine Culture Reflexed NO 06/17/2017 11:10a m 06/17/2017 11:40am Procedures Procedure Status Date Provider(s) ROUTINE VENIPUNCTURE Completed 06/12/17 METABOLIC PANEL TOTAL CA Completed 06/12/17 HEPATIC FUNCTION PANEL Completed 06/12/17 ASSAY OF LITHIUM Completed 06/12/17 ASSAY THYROID STIM HORMONE Completed 06/12/17 CT Head WO contrast Active 06/17/17 Ari LOPEZ DO X-ray of chest, single view Active 06/17/17 OMER TAPIA DO Electrocardiogram tracing Completed 06/17/17 OMER CORRALES DO Encounters Encounter Location Arrival/Admit Date Discharge/Depart Date Attending Provider Departed [facility] 06/17/17 9:45am 06/17/17 4:35pm OMER LOPEZ DO Registered Clinic [facility] 06/12/17 2:18pm LIBERTAD KING PA-C Office Visit [facility] 06/12/17 1:30pm LIBERTAD HUMPHRIES PA-C Registered Practice [facility] 06/12/17 1:30pm LIBERTAD HUMPHRIES PA-C Recent Diagnosis
--- OUTSIDE RECORDS SUMMARY | 2020-01-12 22:15 | XMS REPORT | Continuity of Care Document ---
Author Author [facility] Address Unknown Phone Unavailable Care Team Providers Care Pst Specialist Name Role Phone MAITE THOMAS MD PCP Insurance Providers Guarantor Azul Madden Address [address] [place] [address] Payer [place] Policy Number [id number] Subscriber's Name HiwotTariq romanholly Ca Relationship 18 Self / Same As Patient Effective Date 17 Payer For Life Policy Number [id number] Subscriber's Name Gala Madden Roby Relationship 01 Effective Date 12 Advance Directives Directive Response Recorded Date/Time Advance Directives No 06/12/17 2:17pm Chief Complaint and Reason for Visit Chief Complaint General Medical Reason for Visit Nasal congestion COPD exacerbation Problems Medical Problem Onset Date Status Anxiety Unknown Chronic Bipolar disorder Unknown Chronic Chronic back pain greater than 3 months duration Unknown Chronic Past Problems Medical Problem Onset Date Status COPD exacerbation Unknown Acute Change in mental status Unknown Acute Dementia Unknown Acute Nasal congestion Unknown Acute Medications Current Home Medications Medication Dose Units Route Directions Days Qty Instructio ns Start Date Albuterol (Ventolin Hfa) 90 Mcg Hfa.aer.ad 2 Puff Inhalation Every 4-6 Hours As Needed as needed for For Coughing 8 Gram 07/17/17 Amoxicillin 875 Mg Tablet 875 Mg Oral Every 12 Hours 20 Tablet 07/17/17 Cetirizine Hcl (Zyrtec) 10 Mg Tablet 10 Mg Oral Daily 30 Tablet 07/17/17 Clonazepam (Klonopin) 1 Mg Tablet 1 Mg Oral Twice A Day 60 Tablet 06/12/17 Gabapentin 400 Mg Capsule 400 Mg Oral Three Times A Day 90 Capsule 06/12/17 Levothyroxine Sodium (Synthroid) 25 Mcg Tablet 25 Mcg Oral D aily 30 Tablet 06/12/17 [place] Carbonate ([place] Carbonate Er) 450 Mg Tablet.er 450 Mg Oral Bedtime Meloxicam 15 Mg Tablet 15 Mg Oral Daily 30 Tablet 06/12/17 Prazosin Hcl 2 Mg Capsule 2 Mg Oral Bedtime Prednisone 20 Mg Tablet 20 Mg Oral Twice A Day 15 T ablet 07/17/17 Quetiapine Fumarate (Seroquel) 50 Mg Tablet 50 Mg Oral Three Times A Day 100 Tablet ALSO USE NEEDED FOR ANXIETY 06/12/17 Salmeterol Xinafoate/Fluticasone (Advair Diskus) 250 Mcg/50 Mcg Disk 1 Puff Inhalation Twice A Day 1 Inhaler RINSE MOUTH AFTER USE Trazodone Hcl 150 Mg Tablet 150 Mg Oral Bedtime Past Home Medications Medication Directions Ordered Status Gabapentin 400 Mg Capsule, 400 Mg Oral Three Times A Day Discontinued Levothyroxine Sodium (Synthroid) 25 Mcg Tablet, 25 Mcg Oral Otis y Discontinued [place] Carbonate ([place] Carbonate Er) 450 Mg Tablet.er, 4 50 Mg Oral Daily 06/12/17 Discontinued [place] Carbonate ([place] Carbonate Er) 450 Mg Tablet.er, 450 M [...] Recorded Date/Time Onset Date Status Marital Status 07/17/2017 9:59am Not Applicable Not Ap plicable Smoking Status Start Date Stop Date Current every day smoker Hospital Discharge Instructions No hospital discharge instruction information available. Plan of Care Discharge Date 07/17/17 11:17am Disposition 01 HOME/SELF CARE Condition at Discharge Good Instructions/Education Provided Allergies Nasal Causes COPD Inhalers ED COPD Flare Prescriptions See Medication Section Referrals MAITE THOMAS MD Address: [address] [place] [id number] Note: Additional Instructions/Education Follow up in office in three days. Return if worse. You may have a small amount of fluid in your lungs. I recommend a repeat chest x-ray in 10 days. Take your Albuterol inhaler every four hours while awake for three days, then as needed every four hours for cough. Functional Status No functional status information available. Allergies, Adverse Reactions, Alerts Allergen Type Severity Reaction Status Last Updated Morphine Allergy Intermediate vomiting Active 07/16/17 Immunizations No immunization information available. Vital Signs Acute Vital Signs Vital Response Date/Time Height (Feet) 5 feet 07/17/2017 9:56am Height (Inches) 4.00 inches 07/17/2017 9:56am Height (Calculated Centimeters) 162.531487 cm 07/17/20 17 9:56am Weight (Pounds) 145.0 07/17/2017 9:56am Weight (Ounces) 8.0 oz 06/17/2017 9:45am Weight (Calculated Kilograms) 65.375437 kg 07/17/2017 9:56am Weight (Calculated Grams) 86831.894 gm 07/17/2017 9:5 6am Body Mass Index (BMI) 24 07/17/2017 9:56am Body Mass Index (BMI) Classification Normal Weight 9:56am Temperature (Fahrenheit) 98.2 degrees F (96.8 - 100.4) 07/17 10:41am Blood Pressure Systolic 128 mm Hg (100 - 140) 07/17/2017 10: 41am Blood Pressure Diastolic 58 mm Hg (60 - 100) 07/17/2017 10:4 1am Pulse Rate (adult) 77 beats per minute (60 - 100) 7 10:41am Respirations 16 breaths per minute (12 - 20) 07/17/20 17 10:41am O2 Sat by Pulse Oximetry 100 % (90 - 100) 07/17/2017 10:4 1am Ambulatory Vital Signs Vital Response Date/Time Height [...] Level 10.6 MG/DL H 8.4-10.2 06/17/2017 9:53am 08/16/2 017 10:48am Sodium Level 140 MMOL/L 136-145 [...] 10:53am Acetaminophen Level < 0.6 UG/ML L 1006/17/2017 9:53am 10:53am [place] Level 0.8 MMOL/L L 1.0-1.2 06/17/2017 9:53am [...] evaluation purposes. Urine Color YELLOW YELLOW 06/17/2017 11:10a 7 11:32am Urine Clarity Clear CLEAR 06/17/2017 11:10am 017 11:32am Urine pH 6.0 4.5-7.5 06/17/2017 11:10a06/17/2017 1 1:32am Urine Specific [place] <= 1.005 1.002-1.030 06/17 11:10am 06/17/2017 11:32am [...] 06/12/17 ASSAY THYROID STIM HORMONE Completed 06/12/17 ROUTINE VENIPUNCTURE Completed 06/17/17 CT HEAD/BRAIN W/O DYE Completed 06/17/17 CHEST X-RAY 1 VIEW FRONTAL Completed 06/17/17 COMPREHEN METABOLIC PANEL Completed 06/17/17 ASSAY OF LITHIUM Completed 06/17/17 DRUG TEST PRSMV DIR OPT OBS Completed 06/17/17 URINALYSIS AUTO W/SCOPE Completed 06/17/17 COMPLETE CBC W/AUTO DIFF WBC Completed 06/17/17 ELECTROCARDIOGRAM TRACING Completed 06/17/17 ELECTROCARDIOGRAM REPORT Completed 06/17/17 HYDRATE IV INFUSION ADD-ON Completed 06/17/17 HYDRATE IV INFUSION ADD-ON Completed 06/17/17 THER/PROPH/DIAG INJ SC/IM Completed 06/17/17 THER/PROPH/DIAG INJ IV PUSH Completed 06/17/17 EMERGENCY DEPT VISIT Completed 06/17/17 EMERGENCY DEPT VISIT Completed 06/17/17 DRUG TEST DEF 1-7 CLASSES Completed 06/17/17 DRUG TEST DEF 1-7 CLASSES Completed 06/17/17 DRUG TEST DEF 1-7 CLASSES Completed 06/17/17 LORAZEPAM INJECTION Completed 06/17/17 LORAZEPAM INJECTION Completed 06/17/17 NORMAL SALINE SOLUTION INFUS Completed 06/17/17 CT Head WO contrast Completed 06/17/17 Ari LOPEZ DO X-ray of chest, single view Completed 06/17/17 OMER TAPIA DO Electrocardiogram tracing Completed 06/17/17 OMER CORRALES DO X-ray of chest, PA and lateral views Completed 07/17/17 TERRENCE TRIPP DO Encounters Encounter Location Arrival/Admit Date Discharge/Depart Date Attending Provider Departed Emergency Room [facility] 07/17/17 9:40am 07/17/17 11:17am TERRENCE TRIPP DO Departed Emergency Room [facility] 07/16/17 6:57pm 07/17/17 2:11am EMMANUEL MURCIA Departed Emergency Room [facility] 06/17/17 9:45am 06/17/17 4:35pm OMER LOPZE DO Registered Clinic [facility] 06/12/17 2:18pm LIBERTAD KING PA-C Registered Practice [facility] 06/12/17 1:30pm LIBERTAD HUMPHRIES PA-C Recent Diagnosis
--- OUTSIDE RECORDS SUMMARY | 2020-01-12 22:15 | XMS REPORT | Continuity of Care Document ---
Author Author [facility] Organization [facility] Address Unknown Phone Unavailable Care Team Providers Care Hospital Receiving Clerk Name Role Phone MAITE THOMAS MD PCP Insurance Providers Guarantor Azul Espino Address [address] [place] [address] [facility] Policy Number [id number] Subscriber's Name Azul Espino Roby Relationship 18 Self / Same As Patient Effective Date 17 [facility] 2017 Policy Number [id number] Subscriber's Name Gala Espino Relationship 01 Effective Date 12 Advance Directives Directive Response Recorded Date/Time Advance Directives No 09/01/17 4:31pm Name of DPOA CAMRYN,DAUGHTER 09/01/17 4:31pm DPOA Relationship to Patient DAUGHTER 09/01/17 4: 31pm DPOA 09/01/17 4:31pm Chief Complaint and Reason for Visit Chief Complaint Cough Reason for Visit Bronchitis Problems Medical Problem Onset Date Status Agitation Unknown Acute Anxiety Unknown Chronic Bipolar disorder Unknown Chronic Chronic back pain greater than 3 months duration Unknown Chronic Past Problems Medical Problem Onset Date Status Bronchitis Unknown Acute COPD exacerbation Unknown Acute Change in mental status Unknown Acute Confusion Unknown Acute Dementia Unknown Acute Hypoxia Unknown Acute [place] toxicity Unknown Acute Nasal congestion Unknown Acute Pneumonia Unknown Acute Suicide attempt Unknown Acute Medications Current Home Medications Medication Dose Units Route Directions Days Qty Instructio ns Start Date Advair Discus Inhalation Twice A Day Albuterol (Albuterol Sulfate Neb) 2.5 Mg/3 Ml Vial.neb 1 Vial Nebulize Every 4-6 Hours As Needed as needed for Shortness Of Breath/Wheezing 25 Days 02/10/18 Atrovastatin Oral Bedtime Azithromycin (Zithromax) 250 Mg Tablet 250 Mg Oral Daily 4 Tablet Start tomorrow PM since first dose in the ER 02/10/18 Gabapentin Oral Bedtime Ibuprofen Oral Every 4 Hours As Needed Melatonin Oral Bedtime Naltrexane Oral Daily Oxcarbazepine Oral Twice A Day Prednisone (Prednisone 40 Mg Burst) 20 Mg Tablet 40 Mg Oral Daily 8 Tablet TAKE 2 TABLETS (40 MG) BY MOUTH ONCE DAILY FOR 4 DAYS. DISPENSE #8 20 MG TABLETS. Start tomorrow evening since first dose in the ER 02/10/18 Quetiapine Fumarate (Seroquel) 100 Mg Tablet 100 Mg Oral Lisset ly Quetiapine Fumarate (Seroquel) 300 Mg Tablet 300 Mg Oral Bed time Thiamine Hcl 100 Mg Tablet 100 Mg Oral Daily Ventolin Inhaler Inhalation Every 6 Yolanda rs As Needed as needed for For Air Hunger Past Home Medications Medication Directions Ordered Status Acetaminophen/Hydrocodone Bitart ([place]) 5 Mg/325 Mg T ablet, 1-2 Tablet [...] Mg Oral Every 12 Hours 07/17/17 Discontinued Azithromycin 250 Mg Tablet, 250 Mg [...] Tablet, 25 Mcg Oral Otis y Discontinued [place] Carbonate ([place] Carbonate Er) 300 Mg Tablet.er, 3 00 Mg Oral Bedtime 09/03/17 Discontinued [place] Carbonate ([place] Carbonate Er) 450 Mg Tablet.er, 4 50 Mg Oral Bedtime Discontinued [place] Carbonate ([place] Carbonate Er) 450 Mg Tablet.er, 4 50 Mg Oral Daily 06/12/17 Discontinued [place] Carbonate ([place] Carbonate Er) 450 Mg Tablet.er, 450 M [...] Oral Daily Discontinued Prednisone 20 Mg Tablet, 20 Mg [...] Recorded Date/Time Onset Date Status Marital Status 02/10/2018 7:25pm Not Applicable Not Ap plicable Smoking Status Start Date Stop Date Current every day smoker Hospital Discharge Instructions No hospital discharge instruction information available. Plan of Care Discharge Date 02/10/18 9:34pm Disposition 01 HOME/SELF CARE Condition at Discharge Good Instructions/Education Provided Bronchitis Acute Prescriptions See Medication Section Referrals MAITE THOMAS MD Address: [address] [place] [id number] Additional Instructions/Education 1. Discharge to home . 2. Rest. 3. Encourage fluids. 4. Tylenol/motrin as needed 5. Zithromax as directed. Start tomorrow PM since first dose in the ER 6. Prednisone as directed.Start tomorrow PM since first dose in the ER 7. Albuterol treatments every 4-6 hours for 24 hours then as needed 8. Follow up with your doctor in 2-3 day s for recheck or return sooner for any worsened symptoms. Functional Status No functional status information available. Allergies, Adverse Reactions, Alerts Allergen Type Severity Reaction Status Last Updated Morphine Allergy Intermediate vomiting Active 07/16/17 Immunizations No immunization information available. Vital Signs Acute Vital Signs Vital Response Date/Time Height (Feet) 5 feet 02/10/2018 7:22pm Height (Inches) 4.00 inches 02/10/2018 7:22pm Height (Calculated Centimeters) 162.190677 cm 02/11/20 18 7:22pm Weight (Pounds) 160.0 02/10/2018 7:22pm Weight (Ounces) 8.0 oz 06/17/2017 9:45am Weight (Calculated Kilograms) 72.956713 kg 02/10/2018 7:22pm Weight (Calculated Grams) 05280.780 gm 02/10/2018 7:2 2pm Body Mass Index (BMI) 27 02/10/2018 7:22pm Body Mass Index (BMI) Classification Overweight 09/2018 7:22pm Temperature (Fahrenheit) 99.3 degrees F (96.8 - 100.4) 02/10 7:22pm Blood Pressure Systolic 120 mm Hg (100 - 140) 02/10/2018 9:3 4pm Blood Pressure Diastolic 74 mm Hg (60 - 100) 02/10/2018 9:34 pm Pulse Rate (adult) 74 beats per minute (60 - 100) 8 9:34pm Respiratory Rate 22 breaths per minute (12 - 24) 09/08/20 17 12:05am Respirations 20 breaths per minute (12 - 20) 02/11/20 18 9:34pm O2 Sat by Pulse Oximetry 96 % (90 - 100) 02/10/2018 9:34 pm Ambulatory Vital Signs Vital Response Date/Time [...] MG/DL 0.10-0.80 06/12/2017 2:21pm 0 06/12/2017 3:31pm Salicylates Level < 5.0 MG/DL L 15.0-30.0 06/17/2017 9:53am 10:53am Macrocytosis 1+ 08/21/2017 9:15am 7 10:28am Cholesterol Level 352 MG/DL H 150-200 08/21/2017 9:15am 08/03 10:57am Triglycerides Level 334 MG/DL H 30-200 08/21/2017 9:15am 10:57am HDL Cholesterol 55 MG/DL 35-60 08/21/2017 9:15am 2016 10:57am LDL Cholesterol 206 MG/DL H <100 08/21/2017 9:15am 2016 10:57am VLDL Cholesterol, Calculated 67 H 5-40 08/21/2017 9:15am 08/21/2017 10:57am Cholesterol/HDL Ratio 6 % H 0-5 08/21/2017 9:15am 08/21/2017 10:57am Hepatitis A IgM Antibody Negative Negative 08/21 9:15am 08/22/2017 11:10am Hepatitis B Core IgM Antibody Negative Negative 08/21/2017 9:15am 08/22/2017 11:10am Hepatitis C Antibody <0.1 s/co ratio 0.0-0.9 08/21/20 9:15am 08/22/2017 11:10am Negati ve: < 0.8 Indeterminate: 0.8 - 0.9 Positive: > 0.9 The CDC recommends that a positive HCV antibody result be followed up with a HCV Nucleic Acid Amplification test (017638). Performed at: [facility] [address], [place], [place] [id number] Analytics Analyst: ERLINDA Tao MD, Phone: [phone] Neutrophils (%) (Auto) 78.9 % H 40.0-75.0 09/02/2017 5:20 am 09/02/2017 5:58am Lymphocytes (%) (Auto) 11.2 % L 18.0-47.0 09/02/2017 5:20 am 09/02/2017 5:58am Monocytes (%) (Auto) 7.9 % 0.0-10.0 09/02/2017 5:20am 09/02/2017 5:58am Eosinophils (%) (Auto) 1.2 % 0.0-6.0 09/02/2017 5:20am 09/02/2017 5:58am Basophils (%) (Auto) 0.8 % 0.0-2.0 09/02/2017 5:20am 1 11/02/2016 5:58am Neutrophils # (Auto) 9.0 X10-3/UL H 1.9-8.1 7 5:20am 09/02/2017 5:58am Lymphocytes # (Auto) 1.3 X10-3/UL 0.9-5.1 09/02/2017 5:20am 09/02/2017 5:58am Monocytes # (Auto) 0.9 X10-3/UL 0.1-0.9 09/02/2017 5:20am 5:58am Eosinophils # (Auto) 0.1 X10-3/UL 0.0-0.6 09/02/2017 5:20am 09/02/2017 5:58am Basophils # (Auto) 0.1 X10-3/UL 0.0-0.2 09/02/2017 5:20am 5:58am Eosinophils % (Manual) 1 % 0-6 09/01/2017 [...] RESULTS. g/dL 14.0-18.0 09/01/2017 1:35pm 09/01/2017 1:48pm Thyroid Stimulating Hormone (TSH) 1.33 MIU/L 0.35-4 .94 09/01/2017 10:54am 09/01/2017 11:45am Lactic Acid Level 0.8 MMOL/L 0.5-2.2 09/01/2017 10:54am 1:20pm Ammonia 24.0 UMOL/L 18.2-72.2 09/01/2017 10:54am 09/01/2017 11:15am Urine Amorphous Sediment TRACE /HPF 09/01/2017 10:2 0am 09/01/2017 11:20am White Blood Count 11.1 X10-3/UL H 4.8-10.8 09/07/2017 5:00pm 6:12pm Red Blood Count 4.22 X10-6/UL 4.20-5.40 09/07/2017 5:00pm 04/2017 6:12pm Hemoglobin 14.2 G/DL 12.0-16.0 09/07/2017 5:00pm 7 6:12pm Hematocrit 43.8 % 37.0-47.0 09/07/2017 5:00pm 7 6:12pm Mean Corpuscular Volume 104.0 FL H 80.0-99.0 2016 5:00pm 09/07/2017 6:12pm Mean Corpuscular Hemoglobin 33.7 PG H 27.0-31.0 5:00pm 09/07/2017 6:12pm Mean Corpuscular Hemoglobin Concent 32.4 G/DL L 33.0 -37.0 09/07/2017 5:00pm 09/07/2017 6:12pm Red Cell Distribution Width 13.3 % 11.5-14.5 5:00pm 09/07/2017 6:12pm Platelet Count 407 X10-3/UL H 130-400 09/07/2017 5:00pm 2016 6:12pm Differential Total Cells Counted 100 100 09/07/2017 [...] Comment NORMAL 09/07/2017 5 :00pm 09/07/2017 6:28pm Glucose Level 62 MG/DL L 70-105 09/07/2017 5:00pm 09/07/20 17 6:34pm Blood Urea Nitrogen 9.0 MG/DL L 9.8-20.1 09/07/2017 5:00pm 1 11/07/2016 6:34pm Creatinine 1.08 MG/DL 0.57-1.11 09/07/2017 5:00pm 7 6:34pm BUN/Creatinine Ratio 8 L 10-20 09/07/2017 5:00pm 1 11/07/2016 6:34pm EGFR Other 57.1 * >59 09/07/2017 5:00pm 09/07/2017 6:34pm *RESULT UNITS: ML/MIN/1.73 EGFR 65.8 * >59 09/07/2017 5:00pm 09/07/2017 6:34pm *RESULT UNITS: ML/MIN/1.73 Aspartate Amino Transf (AST/SGOT) 52 U/L H 5-34 09/07/2017 5:00pm 09/07/2017 6:34pm Alanine Aminotransferase (ALT/SGPT) 54 U/L 0-55 09/07/2017 5:00pm 09/07/2017 6:34pm Alkaline Phosphatase 67 IU/L 40-150 09/07/2017 5:00pm 1 11/07/2016 6:34pm Total Bilirubin 0.40 MG/DL 0.0-1.0 09/07/2017 5:00pm 2016 6:34pm Total Protein 7.1 G/DL 6.4-8.3 09/07/2017 5:00pm 09/07/20 17 6:34pm Albumin 3.6 g/dL 3.5-5.0 09/07/2017 5:00pm 09/07/2017 6:3 4pm Albumin/Globulin Ratio 1.0 1.0-2.0 09/07/2017 5:00pm 09/07/2017 6:34pm Globulin 3.5 G/DL 1.9-3.8 09/07/2017 5:00pm 09/07/2017 6: 34pm Calcium Level 10.4 MG/DL H 8.4-10.2 09/07/2017 5:00pm 017 6:34pm Sodium Level 139 MMOL/L 136-145 09/07/2017 5:00pm 7 6:34pm Potassium Level 3.5 MMOL/L 3.5-5.1 09/07/2017 5:00pm 2016 6:34pm Chloride Level 105 MMOL/L 98-107 09/07/2017 5:00pm 017 6:34pm Carbon Dioxide Level 26.0 MMOL/L 22-29 09/07/2017 5:00pm 1 11/07/2016 6:34pm Anion Gap 12 MEQ/L 0-14 09/07/2017 5:00pm 09/07/2017 6 :34pm Troponin I < 0.02 NG/ML 0.00-0.06 09/07/2017 5:00pm 7 6:34pm TROPONIN I <=0.06 ng/mL Negative 0.07-0.25 ng/mL Intermediate >0.25 ng/mL Positive >0.6 ng/mL Critical Troponin I is cardiac specific. If present, indicates injury has occurred, indicating need to R/O myocardial infarct or high risk unstable angina (UA). Serum Alcohol < 10 MG/DL <10 09/07/2017 5:00pm 09/07/20 17 6:33pm Acetaminophen Level < 0.6 UG/ML L 10-30 09/07/2017 5:00pm 6:33pm [place] Level > 3.5 MMOL/L *H 1.0-1.2 09/07/2017 5:00pm 09/07/20 17 6:33pm MICHELINE CALLED TO [facility] IN ED AT 1830 Urine Phencyclidine Screen [...] 09/07/2017 6:30pm 09/07/2017 6: 39pm Urine Specific [place] 1.010 1.002-1.030 09/07 6:30pm 09/07/2017 6:39pm Urine Protein NEGATIVE NEGATIVE 09/07/2017 6:30pm 2016 6:39pm Urine Glucose (UA) NEGATIVE NEGATIVE 09/07/2017 6:30pm 1 11/07/2016 6:39pm Urine Ketones TRACE NEGATIVE 09/07/2017 6:30pm 017 6:39pm Urine Blood NEGATIVE NEGATIVE 09/07/2017 6:30pm 09/07/20 17 6:39pm Urine Nitrate NEGATIVE NEGATIVE 09/07/2017 6:30pm 2016 6:39pm Urine Bilirubin NEGATIVE NEGATIVE 09/07/2017 6:30pm 11/0 04/2017 6:39pm Urine Urobilinogen 0.2 EU/DL 0.2 [...] NEG NEGATIVE 02/10/2018 8:0 6pm 02/10/2018 8:44pm Procedures Procedure Status Date Provider(s) ROUTINE VENIPUNCTURE [...] 06/17/17 NORMAL SALINE SOLUTION INFUS Completed 06/17/17 EMERGENCY DEPT VISIT Completed 07/16/17 CHEST X-RAY 2VW FRONTAL&LATL Completed 07/17/17 EMERGENCY DEPT VISIT Completed 07/17/17 EMERGENCY DEPT VISIT Completed 07/17/17 ROUTINE VENIPUNCTURE Completed 08/21/17 COMPREHEN METABOLIC PANEL Completed 08/21/17 LIPID PANEL Completed 08/21/17 ACUTE HEPATITIS PANEL Completed 08/21/17 ASSAY OF LITHIUM Completed 08/21/17 ASSAY THYROID STIM HORMONE Completed 08/21/17 COMPLETE CBC W/AUTO DIFF WBC Completed 08/21/17 HIV-1/HIV-2 1 RESULT ANTBDY Completed 08/21/17 ROUTINE VENIPUNCTURE Completed 09/07/17 CHEST X-RAY 1 [...] 09/07/17 NORMAL SALINE SOLUTION INFUS Completed 09/07/17 CT Head WO contrast Completed 06/17/17 SUZANNEVENSTINES HOLLY Gregory DO X-ray of chest, single view Completed 06/17/17 OMER TAPIA DO Electrocardiogram tracing Completed 06/17/17 OMER CORRALES DO X-ray of chest, PA and lateral views Completed 07/17/17 TERRENCE TRIPP V DO Electrocardiogram tracing Completed 09/01/[address] Head WO contrast Completed 09/01/17 NUBIA DENNIS MD XR acute abdominal series Completed 09/01/[address] chest w contrast Completed 09/01/17 NUBIA DENNIS MD Arterial blood gas Completed 09/01/17 NUBIA DENNIS MD Aerosol treatment by respiratory therapy Completed NUBIA DENNIS MD Assessment of oxygen delivery Completed 09/01/17 ONE,LUPIS Montes MD Assessment of oxygen delivery Completed 09/01/17 ST ONELUPIS MD Aerosol treatment by respiratory therapy Completed LUPIS MARTINEZ MD Aerosol treatment by respiratory therapy Completed LUPIS MARTINEZ MD Administration of oxygen Completed 09/01/17 Wilma MARTINEZ MD Respiratory assistance for 15 minutes Completed 09/01/17 LUPIS MARTINEZ MD X-ray of chest, PA and lateral views Completed 09/03/17 ROSETTE MCKENNA DO Electrocardiogram tracing Completed 09/07/17 NUBIA DENNIS MD X-ray of chest, single view Completed 09/07/17 NUBIA SEXTON MD Aerosol treatment by respiratory therapy Completed 8 YEN BUTLER PA-C X-ray of chest, PA and lateral views Completed 02/10/18 YEN BUTLER PA-C Encounters Encounter Location Arrival/Admit Date Discharge/Depart Date Attending Provider Departed Emergency Room [facility] 02/10/18 7:10pm 02/10/18 9:34pm YEN BUTLER PA-C Departed Emergency Room [facility] 09/07/17 5:36pm 09/08/17 12:39am RENALDO BUTLER PA-C Discharged Inpatient [facility] 09/01/17 2:45pm 09/03/17 11: 20am LUPIS MARTINEZ MD Registered Clinic [facility] 08/21/17 9:10am HUMERA HOBBS PA-C Departed Emergency Room [facility] 07/17/17 9:40am 07/17/17 11:17am TERRENCE TRIPP DO Departed Emergency Room [facility] 07/16/17 6:57pm 07/17/17 2:11am EMMANUEL MURCIA Departed Emergency Room [facility] 06/17/17 9:45am 06/17/17 4:35pm OMER LOPEZ DO Registered Clinic [facility] 06/12/17 2:18pm LIBERTAD KING PA-C Registered Practice [facility] 06/12/17 1:30pm LIBERTAD HUMPHRIES PA-C Office Visit [facility] 06/12/17 1:30pm LIBERTAD HUMPHRIES PA-C Recent Diagnosis
--- OUTSIDE RECORDS SUMMARY | 2020-01-12 22:16 | XMS REPORT | Continuity of Care Document ---
Author Author [facility] Address Unknown Phone Unavailable Care Team Providers Care Ice House Supervisor Name Role Phone MAITE THOMAS MD PCP Insurance Providers Guarantor Azul Madden Address [address] [place] [address] Payer Sebastian Policy Number [id number] Subscriber's Name HiwotTariq romanholly Ca Relationship 18 Self / Same As Patient Effective Date 17 Payer For Life Policy Number [id number] Subscriber's Name Gala Madden Roby Relationship 01 Effective Date 12 Advance Directives Directive Response Recorded Date/Time Advance Directives No 06/12/17 2:17pm Problems Medical Problem Onset Date Status Anxiety [...] Mcg Oral D aily 30 Tablet 06/12/17 [place] Carbonate ([place] Carbonate Er) 450 Mg Tablet.er 450 Mg [...] Tablet, 25 Mcg Oral Otis y Discontinued [place] Carbonate ([place] Carbonate Er) 450 Mg Tablet.er, 4 50 Mg Oral Daily 06/12/17 Discontinued [place] Carbonate ([place] Carbonate Er) 450 Mg Tablet.er, 450 M [...] Recorded Date/Time Onset Date Status Marital Status 07/16/2017 7:15pm Not Applicable Not Ap plicable Smoking Status Start Date Stop Date Current every day smoker Hospital Discharge Instructions No hospital discharge instruction information available. Plan of Care Discharge Date 07/17/17 2:11am Disposition 07 LEFT AFTER TRIAGE Condition at Discharge Good Prescriptions See Medication Section Referrals MAITE THOMAS MD Address: [address] [place] [id number] Functional Status No functional status information available. Allergies, Adverse Reactions, Alerts Allergen Type Severity Reaction Status Last Updated Morphine Allergy Intermediate vomiting Active 07/16/17 Immunizations No immunization information available. Vital Signs Acute Vital Signs Vital Response Date/Time Height (Feet) 5 feet 07/16/2017 7:12pm Height (Inches) 4.00 inches 07/16/2017 7:12pm Height (Calculated Centimeters) 162.815763 cm 07/16/20 17 7:12pm Weight (Pounds) 145.0 07/16/2017 7:12pm Weight (Ounces) 8.0 oz 06/17/2017 9:45am Weight (Calculated Kilograms) 65.305131 kg 07/16/2017 7:12pm Weight (Calculated Grams) 69596.894 gm 07/16/2017 7:1 2pm Body Mass Index (BMI) 24 07/16/2017 7:12pm Body Mass Index (BMI) Classification Normal Weight 7:12pm Temperature (Fahrenheit) 97.8 degrees F (96.8 - 100.4) 07/16 7:12pm Blood Pressure Systolic 107 mm Hg (100 - 140) 07/16/2017 7:1 2pm Blood Pressure Diastolic 69 mm Hg (60 - 100) 07/16/2017 7:12 pm Pulse Rate (adult) 72 beats per minute (60 - 100) 7 7:12pm Respirations 16 breaths per minute (12 - 20) 07/16/20 17 7:12pm O2 Sat by Pulse Oximetry 100 % (90 - 100) 07/16/2017 7:12 pm Ambulatory Vital Signs Vital Response Date/Time [...] 0.6 UG/ML L 10-30 06/17/2017 9:53am 10:53am [place] Level 0.8 MMOL/L L 1.0-1.2 06/17/2017 9:53am [...] 06/17/2017 10:44am Chain of Custody COCUST 06/17/2017 10:10a06/02 10:44am Specimen analysis was performed without chain of custody handling. These results should be used for medical purposes only and not for any legal or employment evaluation purposes. Urine Color YELLOW YELLOW 06/17/2017 11:10a 7 11:32am Urine Clarity Clear CLEAR 06/17/2017 11:10a 017 11:32am Urine pH 6.0 4.5-7.5 06/17/2017 11:10a06/17/2017 1 1:32am Urine Specific [place] <= 1.005 1.002-1.030 06/17 11:10am 06/17/2017 11:32am Urine Protein NEGATIVE NEGATIVE 06/17/2017 11:10am 06/17 11:32am Urine Glucose (UA) NEGATIVE NEGATIVE 06/17/2017 11:10am 06/17/2017 11:32am Urine Ketones NEGATIVE NEGATIVE 06/17/2017 11:10a06/17 11:32am Urine Blood TRACE-INTACT NEGATIVE 06/17/2017 11:10am [...] Discharge/Depart Date Attending Provider Departed Emergency Room [facility] 07/16/17 6:57pm 07/17/17 2:11am EMMANUEL MURCIA Departed Emergency Room [facility] 06/17/17 9:45am 06/17/17 4:35pm OMER LOPEZ DO Registered Clinic [facility] 06/12/17 2:18pm LIBERTAD KING PA-C Registered Practice [facility] 06/12/17 1:30pm LIBERTAD HUMPHRIES PA-C
--- OUTSIDE RECORDS SUMMARY | 2020-01-12 22:16 | XMS REPORT | Continuity of Care Document ---
Author Organization Unknown Address Unknown Phone Unavailable Allergies Active Description Code Type Severity Reaction Onset Reported/Identified Relationship to Patient Clinical Status Yes NO KNOWN DRUG ALLERGIES UNKNOWN UNKNOWN Yes No Known Allergies [id number] Drug Allergy Unknown N/A 03/21/2010 Yes morphine [id number] Drug Allergy Moderate vomiting 12/19/2018 Yes morphine [id number] Drug Allergy Moderate vomiting 12/02/2019 Yes No Known Drug Allergies [id number] Drug Allergy Unknown N/A 01/10/2020 Medications There is no data. Problems Date Dx Coded Attending Type Code Diagnosis Diagnosed By 04/13/2017 BALBINA SHABAZZ WORKING F10.1 21 Alcohol abuse with intoxication delirium [place] [place] 04/13/2017 BALBINA SHABAZZ WORKING F31.9 Bipolar disorder, unspecified ([facility] [place] 04/13/2017 BALBINA SHABAZZ WORKING F43.1 0 Post-traumatic stress disorder, unspecified 04/13/2017 BALBINA SHABAZZ WORKING F60.3 Borderline personality disorder 04/13/2017 BALBINA SHABAZZ WORKING J18.9 Pneumonia, unspecified organism 04/13/2017 BALBINA SHABAZZ WORKING J44.9 Chronic obstructive pulmonary disease, unspecified ([facility] [place] 06/12/2017 KRISTEL, LIBERTAD PA-C DG E03.9 HYPOTHYROIDISM, UNSPECIFIED 06/12/2017 KRISTEL, LIBERTAD PA-C DG R69 ILLNESS, UNSPECIFIED 06/12/2017 KRISTEL, LIBERTAD PA-C DG Z79.899 OTHER ALF (CURRENT) DRUG THERAPY 06/12/2017 KRISTEL, LIBERTAD PA-C Other E03.9 HYPOTHYROIDISM, UNSPECIFIED 06/12/2017 KRISTEL, LIBERTAD PA-C Other R69 ILLNESS, UNSPECIFIED 06/12/2017 KRISTEL, LIBERTAD PA-C Other Z79.899 OTHER [employer] F[employer]NACE TENDER (CURRENT) DRUG THERAPY 06/17/2017 ROOMER JOHNSON DO Other F03.91 UNSPECIFIED DEMENTIA WITH BEHAVIORAL DISTURBANCE 06/17/2017 OMER LOPEZ DO Other J44.9 CHRONIC OBSTRUCTIVE PULMONARY DISEASE, UNSPECIFIED 06/17/2017 ROVENSTOMER LEVIN DO Other J45.909 UNSPECIFIED ASTHMA, UNCOMPLICATED 06/17/2017 OMER LOPEZ DO Other R41.82 ALTERED MENTAL STATUS, UNSPECIFIED 07/17/2017 EMMANUEL ARRIOLA Other Z53.21 PROC/TRTMT NOT CRD OUT D/T PT [facility]F SEEN BY [facility] 07/17/2017 TERRENCE TRIPP DO, V Other J44.1 CHRONIC OBSTRUCTIVE PULMONARY DISEASE W (ACUTE) EXACER BATION 07/17/2017 TERRENCE TRIPP DO, V Other R09.81 NASAL CONGESTION 08/21/2017 HUMERA THOMAS PA-C F19.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 PSYCHOACTIVE SUBSTANCE ABUSE, IN REMISSION 08/21/2017 HUMERA THOMAS PA-C DG F31.9 BIPOLAR DISORDER, UNSPECIFIED 08/21/2017 HUMERA THOMAS PA-C J44.9 CHRONIC OBSTRUCTIVE PULMONARY DISEASE, UNSPECIFIED 08/21/2017 HUMERA THOMAS PA-C Other F19.11 OTHER PSYCHOACTIVE SUBSTANCE ABUSE, IN REMISSION 08/21/2017 HUMERA THOMAS PA-C Other F31.9 BIPOLAR DISORDER, UNSPECIFIED 08/21/2017 HUMERA THOMAS PA-C Other J44.9 CHRONIC OBSTRUCTIVE PULMONARY DISEASE, UNSPECIFIED 09/03/2017 LUPIS MARTINEZ MD E51 .2 WERNICKE'S ENCEPHALOPATHY 09/03/2017 LUPIS MARTINEZ MD F17.210 NICOTINE DEPENDENCE, CIGARETTES, UNCOMPLICATED 09/03/2017 LUPIS MARTINEZ MD F31 .9 BIPOLAR DISORDER, UNSPECIFIED 09/03/2017 LUPIS MARTINEZ MD J18 .9 PNEUMONIA, UNSPECIFIED ORGANISM 09/03/2017 LUPIS MARTINEZ MD J44 .0 CHRONIC OBSTRUCTIVE PULMON DISEASE W ACUTE LOWER R 09/03/2017 LUPIS MARTINEZ MD R09 .02 HYPOXEMIA 09/03/2017 LUPIS MARTINEZ MD R41 .0 DISORIENTATION, UNSPECIFIED 09/03/2017 LUPIS MARTINEZ MD R45 .1 RESTLESSNESS AND AGITATION 09/08/2017 RENALDO BUTLER PA-C Other F31.2 BIPOLAR DISORD, CRNT EPISODE MANIC SEVERE W PSYCH FEAT URES 09/08/2017 RENALDO BUTLER PA-C Other T14.91XA SUICIDE ATTEMPT, INITIAL ENCOUNTER 09/08/2017 RENALDO BUTLER PA-C Other T56.892A TOXIC EFFECT OF OTH METALS, INTENTIONAL SELF-HARM, INI T 02/10/2018 YEN BUTLER PA-C Other F17.200 NICOTINE DEPENDENCE, UNSPECIFIED, UNCOMPLICATED 02/10/2018 YEN BUTLER PA-C Other J40 BRONCHITIS, NOT SPECIFIED ACUTE OR CHRONIC 02/10/2018 YEN BUTLER PA-C Other R50.9 FEVER, UNSPECIFIED 02/10/2018 YEN BUTLER PA-C Other Z79.899 OTHER [employer]CINE FURNACE TENDER (CURRENT) DRUG THERAPY 04/15/2018 JACINDA RIVERO MD 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 04/15/2018 JACINDA RIVERO MD R01.1 CARDIAC MURMUR, UNSPECIFIED 04/15/2018 JACINDA RIVERO MD Other 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 04/15/2018 JACINDA RIVERO MD Other R01.1 CARDIAC MURMUR, UNSPECIFIED 07/16/2018 EMMANUEL SOLER Z79.899 OTHER CALCINE FURNACE TENDER (CURRENT) DRUG THERAPY 07/16/2018 EMMANUEL SOLER Other Z79.899 OTHER ALF (CURRENT) DRUG THERAPY 07/16/2018 NUBIA DENNIS MD Other E78.00 PURE HYPERCHOLESTEROLEMIA, UNSPECIFIED 07/16/2018 NUBIA DENNIS MD Other J44.9 CHRONIC OBSTRUCTIVE PULMONARY DISEASE, UNSPECIFIED 11/16/2018 NUBIA DENNIS MD Other F17.210 NICOTINE DEPENDENCE, CIGARETTES, UNCOMPLICATED 11/16/2018 NUBIA DENNIS MD Other J44.9 CHRONIC OBSTRUCTIVE PULMONARY DISEASE, UNSPECIFIED 11/16/2018 NUBIA DENNIS MD Other N30.00 ACUTE CYSTITIS WITHOUT HEMATURIA 12/09/2018 ISABEL CARTER DG N39.0 URINARY TRACT INFECTION, SITE NOT SPECIFIED 12/09/2018 ISABEL CARTER DG R10.9 UNSPECIFIED ABDOMINAL PAIN 12/09/2018 ISABEL CARTER Other N39.0 URINARY TRACT INFECTION, SITE NOT SPECIFIED 12/09/2018 ISABEL CARTER RIVET SORTER Other R10.9 UNSPECIFIED ABDOMINAL PAIN 12/10/2018 ISABEL CARTER R RIVET SORTER Other R10.11 RIGHT UPPER QUADRANT PAIN 12/19/2018 ELMER SMITH, PEARL MALONE F17.210 NICOTINE DEPENDENCE, CIGARETTES, UNCOMPLICATED 12/19/2018 ELMER SMITH, PEARL MALONE K59.01 SLOW TRANSIT CONSTIPATION 12/19/2018 ELMER SMITH, PEARL MALONE K80.50 CALCULUS OF BILE DUCT W/O CHOLANGITIS OR CHOLECYST 12/21/2018 ISABEL CARTER R RIVET SORTER DG K76.0 FATTY (CHANGE OF) LIVER, NOT ELSEWHERE CLASSIFIED 12/21/2018 ISABEL CARTER R RIVET SORTER DG K80.20 CALCULUS OF GALLBLADDER W/O CHOLECYSTITIS W/O OBST 12/21/2018 ISABEL CARTER R RIVET SORTER DG R10.11 RIGHT UPPER QUADRANT PAIN 12/21/2018 ISABEL CARTER RIVET SORTER DG Z51.81 ENCOUNTER FOR THERAPEUTIC DRUG LEVEL MONITORING 12/21/2018 ISABEL CARTER RIVET SORTER DG Z79.899 OTHER ALF (CURRENT) DRUG THERAPY 12/21/2018 ISABEL CARTER RIVET SORTER Other K76.0 FATTY (CHANGE OF) LIVER, NOT ELSEWHERE CLASSIFIED 12/21/2018 ISABEL CARTER R RIVET SORTER Other K80.20 CALCULUS OF GALLBLADDER W/O CHOLECYSTITIS W/O OBSTRUCT ION 12/21/2018 ISABEL CARTER R RIVET SORTER Other R10.11 RIGHT UPPER QUADRANT PAIN 12/21/2018 ISABEL CARTER R RIVET SORTER Other Z51.81 ENCOUNTER FOR THERAPEUTIC DRUG LEVEL MONITORING 12/21/2018 ISABEL CARTER R RIVET SORTER Other Z79.899 OTHER ALF (CURRENT) DRUG THERAPY 12/21/2018 ISABEL CARTER R RIVET SORTER Other R10.11 RIGHT UPPER QUADRANT PAIN 01/05/2019 ISABEL CARTER R RIVET SORTER DG K80.20 CALCULUS OF GALLBLADDER W/O CHOLECYSTITIS W/O OBST 01/05/2019 ISABEL CARTER R RIVET SORTER Other K80.20 CALCULUS OF GALLBLADDER W/O CHOLECYSTITIS W/O OBSTRUCT ION 01/05/2019 ISABEL CARTER R RIVET SORTER Other K80.20 CALCULUS OF GALLBLADDER W/O CHOLECYSTITIS W/O OBSTRUCT ION 03/07/2019 GISELLE DURAND MD Other F41.9 F41.9 - Anxiety disorder, unspecified 03/07/2019 GISELLE DURAND MD Other J44.1 J44.1 - Chronic obstructive pulmonary di sease with (acute) exacerbation 03/07/2019 GISELLE DURAND MD Other J44.9 J44.9 - Chronic obstructive pulmonary disease, unspeci fied 03/07/2019 GISELLE DURAND MD Other K80.20 K80.20 - Calculus of gallbladder without cholecystitis without obstruction 03/07/2019 GISELLE DURAND MD Other R35.0 R35.0 - Frequency of micturition 03/16/2019 PATRICA DELACRUZ MD Other K80.10 K80.10 - Calculus of gallbladder with ch ronic cholecystitis without obstruction 03/31/2019 ISABEL CARTER RIVET SORTER Other N39.0 N39.0 - Urinary tract infection, site not specified 03/31/2019 ISABEL CARTER RIVET SORTER Other R05 R05 - Cough 03/31/2019 ISABEL CARTER R RIVET SORTER Other R31.9 R31.9 - Hematuria, unspecified 03/31/2019 ISABEL CARTER R RIVET SORTER Other R35.0 R35.0 - Frequency of micturition 03/31/2019 ISABEL CARTER RIVET SORTER Other R31.9 R31.9 - Hematuria, unspecified 04/22/2019 GISELLE DURAND MD Other J44.9 J44.9 - Chronic obstructive pulmonary disease, unspeci fied 04/22/2019 GISELLE DURAND MD Other K80.20 K80.20 - Calculus of gallbladder without cholecystitis without obstruction 04/22/2019 GISELLE DURAND MD Other R35.0 R35.0 - Frequency of micturition 04/22/2019 GISELLE DURAND MD Other E78.00 E78.00 - Pure hypercholesterolemia, unspecified 04/22/2019 GISELLE DURAND MD Other J44.9 J44.9 - Chronic obstructive pulmonary disease, unspeci fied 04/22/2019 GISELLE DURAND MD Other K80.20 K80.20 - Calculus of gallbladder without cholecystitis without obstruction 04/22/2019 GISELLE DURAND MD Other R35.0 R35.0 - Frequency of micturition 04/22/2019 GISELLE DURAND MD Other R39.198 R39.198 - Other difficulties with micturition 04/22/2019 GISELLE DURAND MD Other R40.0 R40.0 - Somnolence 04/22/2019 GISELLE DURAND MD Other R4 2 R42 - Dizziness and giddiness 04/22/2019 GISELLE DURAND MD Other R53.82 R53.82 - Chronic fatigue, unspecified 05/21/2019 Elmer SMITH~Pearl CROCKER Other R51 R51 - Headache 06/21/2019 GISELLE DURAND MD Other G89.29 G89.29 - Other chronic pain 06/21/2019 GISELLE DURAND MD Other J30.2 J30.2 - Other seasonal allergic rhinitis 06/21/2019 GISELLE DURAND MD Other J41.0 J41.0 - Simple chronic bronchitis 06/21/2019 GISELLE DURAND MD Other J45.909 J45.909 - Unspecified asthma, uncomplicated 06/21/2019 GISELLE DURAND MD Other M54.5 M54.5 - Low back pain 06/21/2019 GISELLE DURAND MD Other R31.9 R31.9 - Hematuria, unspecified 06/21/2019 GISELLE DURAND MD Other R40.0 R40.0 - Somnolence 08/13/2019 GELLENDER DO, APRIL Jyoti Ot F31.9 BIPOLAR DISORDER, UNSPECIFIED 08/13/2019 GELLENDER DO, APRIL Monets Ot R19.7 DIARRHEA, UNSPECIFIED 08/13/2019 GELLENDER DO, APRIL A Ot R31.9 HEMATURIA, UNSPECIFIED 08/16/2019 GELLENDER DO, APRIL A Ot F31.9 BIPOLAR DISORDER, UNSPECIFIED 08/16/2019 GELLENDER DO, APRIL A Ot R19.7 DIARRHEA, UNSPECIFIED 08/16/2019 GELLENDER DO, APRIL A Ot R31.9 HEMATURIA, UNSPECIFIED 08/16/2019 GELLENDER DO, APRIL A Ot F31.9 BIPOLAR DISORDER, UNSPECIFIED 08/16/2019 GELLENDER DO, APRIL A Ot R19.7 DIARRHEA, UNSPECIFIED 08/16/2019 GELLENDER DO, APRIL A Ot R31.9 HEMATURIA, UNSPECIFIED 08/16/2019 Landon Cruz W 491.21 OBSTRUCTIVE CHRONIC BRONCHITIS WITH (ACUTE) EXACERBATION 08/16/2019 Landon Cruz W J44.1 CHRONIC OBSTRUCTIVE PULMONARY DISEASE W (ACUTE) EXACERBATION 09/01/2019 GELLENDER DO, APRIL Montes Ot F31.9 BIPOLAR DISORDER, UNSPECIFIED 09/01/2019 GELLENDER DO, APRIL Montes Ot R19.7 DIARRHEA, UNSPECIFIED 09/01/2019 GELLENDER DO, APRIL Montes Ot R31.9 HEMATURIA, UNSPECIFIED 11/07/2019 GELLENDER DO, APRIL Montes Ot F31.9 BIPOLAR DISORDER, UNSPECIFIED 11/07/2019 GELLENDER DO, ARPIL Montes Ot R19.7 DIARRHEA, UNSPECIFIED 11/07/2019 GELLENDER DO, APRIL Montes Ot R31.9 HEMATURIA, UNSPECIFIED 11/09/2019 GELLENDER DO, APRIL Montes Ot F31.9 BIPOLAR DISORDER, UNSPECIFIED 11/09/2019 GELLENDER DO, APRIL Montes Ot R19.7 DIARRHEA, UNSPECIFIED 11/09/2019 GELLENDER DO, APRIL Montes Ot R31.9 HEMATURIA, UNSPECIFIED 12/02/2019 KIZZY SMITH, GISELLE Aponte J45.909 J45.909 - Unspecified asthma, uncomplicated 01/10/2020 Ot F31.9 BIPO LAR DISORDER, UNSPECIFIED 01/10/2020 Ot R19.7 DIAR KEKE, UNSPECIFIED 01/10/2020 Ot R31.9 DANUTA TURIA, UNSPECIFIED 01/10/2020 Ot F31.9 BIPO LAR DISORDER, UNSPECIFIED 01/10/2020 Ot R19.7 DIAR KEKE, UNSPECIFIED 01/10/2020 Ot R31.9 DANUTA TURIA, UNSPECIFIED 01/10/2020 Ot F31.9 BIPO LAR DISORDER, UNSPECIFIED 01/10/2020 Ot R19.7 DIAR KEKE, UNSPECIFIED 01/10/2020 Ot R31.9 DANUTA TURIA, UNSPECIFIED Procedures There is no data. Results Test Result Range CBC WITH DIFF - 04/11/17 09:33 WBC 6.88 10*3/uL 4.00-10.80 RBC 3.93 10*6/uL 4.20-5.40 HGB 12.4 g/dL 12.0-16.0 HCT 38.2 % 37.0-47.0 MCV 97 fL 81-99 MCH 32 pg 26.0-34.0 MCHC 32.5 g/dL 31.0-37.0 PLATELET COUNT 192 10*3/uL 150-400 RDWCV 13.2 % 11.5-14.5 DIFF TYPE AUTOMATED DIFF NEUTROPHIL % 82.7 % 36.0-66.0 LYMPHOCYTE % 9.2 % 24.0-44.0 MONOCYTE % 7.1 % 1.0-10.0 EOSINOPHIL % 0.3 % 0.0-6.0 BASOPHIL % 0.4 % 0.0-2.0 ABS. NEUTROPHILS 5.69 10*3/uL 1.55-7.13 ABS. LYMPHOCYTES 0.63 10*3/uL 1.00-4.80 ABS. MONOCYTES 0.49 10*3/uL 0.40-1.08 ABS. EOSINOPHILS 0.02 10*3/uL 0.00-0.65 ABS. BASOPHILS 0.03 10*3/uL 0.00-0.11 ABSOLUTE NUCLEATED RBC 0.00 10*3/uL 0.00 PERCENT NUCLEATED RBC 0.0 % 0.0 MPV 11.0 fL 9.4-12.3 RDW STANDARD DEVIATION 47.6 fL 36.4-46 .3 GRANULOCYTE, IMMATURE, ABSOLUTE 0.0 10*3/uL 0.0-0.1 GRANULOCYTES, IMMATURE, PERCENT 0.3 % 0.0-0.5 AMMONIA - 04/11/17 09:33 AMMONIA <10 umol/L 11-32 LACTIC ACID - 04/11/17 09:33 LACTATE 0.5 mmol/L 0.4-2.0 LITHIUM LEVEL - 04/11/17 09:33 LITHIUM 1.1 mmol/L 0.6-1.2 HEPATIC FUNCTION PANEL - 04/11/17 09:33 ALT-SGPT 70 U/L 13-56 AST-SGOT 86 U/L 15-37 TOTAL PROTEIN,SERUM 6.1 g/dL 6.0-8.3 ALBUMIN 3.2 g/dL 3.4-5.0 ALKALINE PHOSPHATASE 114 U/L 45-117 TOTAL BILIRUBIN 0.5 mg/dL 0.2-1.0 DIRECT BILIRUBIN 0.1 mg/dL 0-0.2 NT PROBRAIN NATRIURETIC PEPTIDE - 09:33 NT PROBRAIN NATRIURETIC PEPTIDE 1007 pg/mL <125 TSH WITH REFLEX TO FREE T4 - 04/11/17 09 :33 TSH 3RD GENERATION 1.920 u[iU]/mL 0.350- 4.900 PROCALCITONIN - 04/11/17 09:33 PROCALCITONIN <0.05 ng/mL BLOOD CULTURE - 04/11/17 09:33 Microbiology BASIC METABOLIC PANEL POCT - 04/11/17 09 :39 POC COMMENT SEE NOTES SODIUM POCT 136 mmol/L 138-146 POTASSIUM POCT 4.2 mmol/L 3.5-4.9 CHLORIDE POCT 104 mmol/L 98-109 MEASURED TOTAL CO2 POCT 24 meq/L 24-29 BUN POCT 16 mg/dL 8-26 CREATININE POCT 0.9 mg/dL 0.6-1.3 GLUCOSE POCT 106 mg/dL 70-105 IONIZED CALCIUM POCT 1.15 mmol/L 1.12-1. 32 BLOOD CULTURE - 04/11/17 10:15 Microbiology ARTERIAL BLOOD GAS - 04/11/17 10:22 METHEMOGLOBIN 0.0 % 0-3.0 PH 7.324 7.350-7.450 PCO2 45.1 mmHg 35.0-45.0 PO2 68.9 mmHg 80.0-90.0 BICARB (ART) 22.9 mmol/L 22.0-26.0 BASE EXCESS -3.2 mmol/L -2.0-2.0 OXY HEMOGLOBIN 91.5 % 94.0-99.0 CO HEMOGLOBIN (ART) 2.0 % 0-3.0 O2 CONTENT 16.8 mL/dL 15.0-23.0 CO2 CONTENT 24.3 mmol/L 24.0-28.0 DRAW TIME (ART) 04/11/2017 10:10 ANALYZE TIME (ART) 04/11/2017 10:22 URINALYSIS AUTOMATED W MICROSCOPY - 04/02 10:54 SPECIMEN CATH JETER COLOR YELLOW APPEARANCE CLEAR CLEAR SPECIFIC GRAVITY 1.015 1.005-1.030 PH, URINE 6.0 5.0-9.0 PROTEIN TRACE mg/dL NEGATIVE GLUC NEGATIVE mg/dL NEGATIVE KETONES NEGATIVE mg/dL NEGATIVE BILIRUBIN NEGATIVE NEGATIVE BLOOD NEGATIVE NEGATIVE NITRITE NEGATIVE NEGATIVE UROBILINOGEN NORMAL mg/dL NORMAL LEUKOCYTE ESTERASE NEGATIVE NEGATIVE WBC'S 1 [HPF] 0-4 RBC'S 2 [HPF] 0-1 MUCUS RARE [LPF] NEGATIVE SQUAMOUS EPITHELIAL CELLS <1 [HPF] 0-1 BASIC METABOLIC PANEL - 04/12/17 07:36 POTASSIUM 4.4 mmol/L 3.5-5.1 CALCIUM 8.6 mg/dL 8.5-10.0 GLUCOSE 98 mg/dL 70-115 BUN 9 mg/dL 7-18 CREATININE 0.61 mg/dL 0.55-1.30 SODIUM 144 mmol/L 136-145 CHLORIDE 117 mmol/L 98-107 CO2 21 mmol/L 21-32 GFR ESTIMATED NOT AFR/AM >60 GFR ESTIMATED IF AFR/AM >60 ANION GAP 6 5-15 BASIC METABOLIC PANEL - 04/13/17 06:13 POTASSIUM 4.2 mmol/L 3.5-5.1 CALCIUM 8.6 mg/dL 8.5-10.0 GLUCOSE 90 mg/dL 70-115 BUN 6 mg/dL 7-18 CREATININE 0.72 mg/dL 0.55-1.30 SODIUM 145 mmol/L 136-145 CHLORIDE 114 mmol/L 98-107 CO2 24 mmol/L 21-32 GFR ESTIMATED NOT AFR/AM >60 GFR ESTIMATED IF AFR/AM >60 ANION GAP 7 5-15 LITHIUM - 06/12/17 14:21 LITHIUM 0.8 1.0-1.2 HEPATIC PANEL - 06/12/17 14:21 ALKALINE PHOSPHATASE 65 40-150 GLOBULIN 2.8 1.9-3.8 Glucose measurement 6.5 6.4-8.3 Serum or plasma alanine aminotransferase measurement (enzymatic activity/volume) 16 0-55 Serum or plasma albumin measurement (mass/volume) 3.7 3.5- 5.0 Serum albumin to globulin ratio 1.3 1.0-2.0 Direct bilirubin 0.10 0-0.5 Serum unconjugated bilirubin measurement 0.20 0.10-0.80 BASIC METABOLIC PANEL - 06/12/17 14:21 CARBON DIOXIDE 28.0 22-29 EST GLOMERULAR FILTRATION RATE 63.1 >59 eGFR 72.8 >59 Glucose measurement 110 98-107 Serum or plasma urea nitrogen measurement (mass/volume ) 11.0 9.8-20.1 Serum or plasma urea nitrogen/creatinine mass ratio 11 10- 20 Serum albumin to globulin ratio 10 0-14 Calcium measurement (mass/volume) 10.0 8.4-10.2 THYROID STIMULATING HORMONE - 06/12/17 1 4:21 THYROID STIMULATING HORMONE 1.92 0. 35-4.94 Complete blood count (CBC) with differen tial count - 06/17/17 09:53 LYMPHOCYTES % 24.2 18.0-47.0 RED CELL DISTRIBUTION WIDTH 12.8 11 .5-14.5 Glucose measurement 1.0 0.9-5.1 Serum albumin to globulin ratio 0.3 0.1-0.9 Blood erythrocytes count (number/volume) 4.65 4.20-5.40 Blood hemoglobin measurement (mass/volume) 14.1 12.0-16.0 Venous blood hematocrit (volume fraction) 43.9 37.0-47.0 MCH 30.2 27.0-31.0 Erythrocyte mean corpuscular hemoglobin concentration measurement (mass/volume) 32.1 33.0-37.0 Blood platelets count (number/volume) 280 130-400 Automated neutrophil percentage 64.1 40.0-75.0 Monocyte percentage 7.1 0.0-10.0 Eosinophil % 3.0 0.0-6.0 Basophil % 1.6 0.0-2.0 Neutrophil count 2.6 1.9-8.1 Blood eosinophils count (number/volume) 0.1 0.0-0.6 Blood basophils count (number/volume) 0.1 0.0-0.2 MCV 94.4 80.0-99.0 LITHIUM - 06/17/17 09:53 LITHIUM 0.8 1.0-1.2 Comprehensive metabolic panel - 06/17/17 09:53 ALKALINE PHOSPHATASE 73 40-150 CARBON DIOXIDE 24.0 22-29 EST GLOMERULAR FILTRATION RATE 63.1 >59 eGFR 72.8 >59 GLOBULIN 3.5 1.9-3.8 Glucose measurement 109 98-107 Serum or plasma urea nitrogen measurement (mass/volume ) 16.0 9.8-20.1 Serum or plasma urea nitrogen/creatinine mass ratio 16 10- 20 Serum or plasma alanine aminotransferase measurement (enzymatic activity/volume) 16 0-55 Serum or plasma albumin measurement (mass/volume) 4.0 3.5- 5.0 Serum albumin to globulin ratio 11 0-14 Calcium measurement (mass/volume) 10.6 8.4-10.2 Drug screening - 06/17/17 09:53 Glucose measurement < 10 <10 Acetaminophen level (mass/volume) - 08/1 6/17 09:53 Acetaminophen level (mass/volume) < 10-30 Serum or plasma salicylates measurement (mass/volume) - 06/17/17 09:53 Serum or plasma salicylates measurement (mass/volume) < 15.0-30.0 Drug screening - 06/17/17 10:10 CHAIN OF CUSTODY COCUST BARBITURATE SCREEN,URINE NEG NEG COCAIN SCREEN,URINE NEG NEG PHENCYCLIDINE SCREEN,URINE NEG NEG Urine benzodiazepines detection by screening method POS NEG Amphetamine ur screen POS NEG Urine cannabinoids detection by screening method N EG NEG Urine opiates screening test NEG N EG Urine tricyclic antidepressant measurement POS NEG Urinalysis with reflex to culture - 06/02 04/18 11:10 BILIRUBIN,URINE NEGATIVE NEGATIVE GLUCOSE,URINE NEGATIVE NEGATIVE KETONES,URINE NEGATIVE NEGATIVE UROBILINOGEN,URINE 0.2 0.2 WBC,URINE 0-2 NONE SEEN Urine culture NO Urine color YELLOW YELLOW Urine appearance Clear CLEAR Urine pH measurement 6.0 4.5-7.5 Urine blood detection TRACE-INTACT NEGA TIVE Urine nitrate measurement NEGATIVE NEGA TIVE Leukocyte esterase ur dipstick NEGATIVE NEGATIVE Erythrocytes detection in urine sediment by light micr oscopy 0-2 NONE SEEN Bacteria detection in urine sediment by light microsco py TRACE NONE SEEN Squamous epithelial cells detection in u rine sediment by light microscopy 0-2 Urine protein detection NEGATIVE NEGATI VE Urine specific gravity measurement <= 1.002-1.030 Complete blood count (CBC) with differen tial count - 08/21/17 09:15 LYMPHOCYTES % 24.1 18.0-47.0 RED CELL DISTRIBUTION WIDTH 14.5 11 .5-14.5 Glucose measurement 1.7 0.9-5.1 Serum albumin to globulin ratio 0.6 0.1-0.9 Blood erythrocytes count (number/volume) 4.74 4.20-5.40 Blood hemoglobin measurement (mass/volume) 15.9 12.0-16.0 Venous blood hematocrit (volume fraction) 51.9 37.0-47.0 MCH 33.5 27.0-31.0 Erythrocyte mean corpuscular hemoglobin concentration measurement (mass/volume) 30.6 33.0-37.0 Blood platelets count (number/volume) 286 130-400 Automated neutrophil percentage 64.0 40.0-75.0 Monocyte percentage 8.1 0.0-10.0 Eosinophil % 2.5 0.0-6.0 Basophil % 1.3 0.0-2.0 Neutrophil count 4.6 1.9-8.1 Blood eosinophils count (number/volume) 0.2 0.0-0.6 Blood basophils count (number/volume) 0.1 0.0-0.2 MCV 109.0 80.0-99.0 RBC morphology - 08/21/17 09:15 Macrocytes detection 1+ Comprehensive metabolic panel - 08/21/17 09:15 ALKALINE PHOSPHATASE 65 40-150 CARBON DIOXIDE 26.0 22-29 EST GLOMERULAR FILTRATION RATE 63.1 >59 eGFR 72.8 >59 GLOBULIN 3.7 1.9-3.8 Glucose measurement 106 98-107 Serum or plasma urea nitrogen measurement (mass/volume ) 19.0 9.8-20.1 Serum or plasma urea nitrogen/creatinine mass ratio 19 10- 20 Serum or plasma alanine aminotransferase measurement (enzymatic activity/volume) 19 0-55 Serum or plasma albumin measurement (mass/volume) 3.3 3.5- 5.0 Serum albumin to globulin ratio 13 0-14 Calcium measurement (mass/volume) 9.9 8.4-10.2 Lipid panel - 08/21/17 09:15 Glucose measurement 334 30-200 Serum or plasma cholesterol in HDL measurement (mass/v olume) 55 35-60 Serum or plasma cholesterol in VLDL measurement (mass/ volume) 67 5-40 Total cholesterol/cholesterol in HDL (percentile) 6 0-5 Cholesterol in LDL [mass/volume] in serum or plasma by calculation 206 <100 Thyroid stimulating hormone (TSH) assay with reflex to free thyroxine - 08/21/17 09:15 Serum albumin to globulin ratio 3.26 0.35-4.94 LITHIUM - 08/21/17 09:15 LITHIUM 0.8 1.0-1.2 HEPATITIS PANEL - 08/21/17 09:15 Hepatitis A virus IgM antibody assay Negative Negative Hepatitis B virus core IgM antibody assay Negative Negative Serum hepatitis B virus surface antigen detection Negative Negative Serum hepatitis C virus antibody detection <0.1 0.0-0.9 HIV 1T2 W/ RFLX TO WB - 08/21/17 09:15 HIV 1 and 2 antibody detection Non Reactive Non Reactive Urinalysis with reflex to culture - 08/04 11/18 10:20 BILIRUBIN,URINE NEGATIVE NEGATIVE GLUCOSE,URINE NEGATIVE NEGATIVE KETONES,URINE NEGATIVE NEGATIVE UROBILINOGEN,URINE 0.2 0.2 WBC,URINE 0-2 NONE SEEN Urine culture NO Urine color YELLOW YELLOW Urine appearance Clear CLEAR Urine pH measurement 5.5 4.5-7.5 Urine blood detection TRACE-INTACT NEGA TIVE Urine nitrate measurement NEGATIVE NEGA TIVE Leukocyte esterase ur dipstick NEGATIVE NEGATIVE Erythrocytes detection in urine sediment by light micr oscopy 2-5 NONE SEEN Bacteria detection in urine sediment by light microsco py NONE SEEN NONE SEEN Squamous epithelial cells detection in u rine sediment by light microscopy 2-5 Amorphous urine sediment TRACE Urine protein detection NEGATIVE NEGATI VE Urine specific gravity measurement 1.015 1.002-1.030 Drug screening - 09/01/17 10:20 CHAIN OF CUSTODY COCUST BARBITURATE SCREEN,URINE NEG NEG COCAIN SCREEN,URINE NEG NEG PHENCYCLIDINE SCREEN,URINE NEG NEG Urine benzodiazepines detection by screening method NEG NEG Amphetamine ur screen NEG NEG Urine cannabinoids detection by screening method N EG NEG Urine opiates screening test NEG N EG Urine tricyclic antidepressant measurement POS NEG Complete blood count (CBC) with reflex m anual white blood cell differential - 09/01/17 10:54 LYMPHOCYTES % 7 18-47 NEUTROPHILS % 85 40-75 RED CELL DISTRIBUTION WIDTH 14.3 11 .5-14.5 Glucose measurement 0.7 0.9-5.1 Serum albumin to globulin ratio 0.6 0.1-0.9 Blood erythrocytes count (number/volume) 4.25 4.20-5.40 Blood hemoglobin measurement (mass/volume) 14.4 12.0-16.0 Venous blood hematocrit (volume fraction) 45.3 37.0-47.0 MCH 33.8 27.0-31.0 Erythrocyte mean corpuscular hemoglobin concentration measurement (mass/volume) 31.7 33.0-37.0 Blood platelets count (number/volume) 239 130-400 Monocyte percentage 6 0-10 Eosinophil % 1 0-6 Basophil % 1 0-2 Neutrophil count 8.6 1.9-8.1 Blood eosinophils count (number/volume) 0.1 0.0-0.6 Blood basophils count (number/volume) 0.1 0.0-0.2 RBC morphology NORMAL Total cell count 100 100 MCV 107.0 80.0-99.0 LITHIUM - 09/01/17 10:54 LITHIUM 2.2 1.0-1.2 Ammonia measurement - 09/01/17 10:54 Ammonia measurement 24.0 18.2-72.2 Drug screening - 09/01/17 10:54 Glucose measurement < 10 <10 Comprehensive metabolic panel - 09/01/17 10:54 ALKALINE PHOSPHATASE 67 40-150 CARBON DIOXIDE 22.0 22-29 EST GLOMERULAR FILTRATION RATE 65.9 >59 eGFR 75.9 >59 GLOBULIN 3.5 1.9-3.8 Glucose measurement 112 98-107 Serum or plasma urea nitrogen measurement (mass/volume ) 14.0 9.8-20.1 Serum or plasma urea nitrogen/creatinine mass ratio 15 10- 20 Serum or plasma alanine aminotransferase measurement (enzymatic activity/volume) 60 0-55 Serum or plasma albumin measurement (mass/volume) 3.5 3.5- 5.0 Serum albumin to globulin ratio 14 0-14 Calcium measurement (mass/volume) 10.0 8.4-10.2 Serum or plasma troponin i.cardiac measu rement (mass/volume) - 09/01/17 10:54 Serum or plasma troponin i.cardiac measurement (mass/v olume) < 0.00-0.06 Thyroid stimulating hormone (TSH) assay with reflex to free thyroxine - 09/01/17 10:54 Serum albumin to globulin ratio 1.33 0.35-4.94 Acetaminophen level (mass/volume) - 08/04 11/18 10:54 Acetaminophen level (mass/volume) < 10-30 Drug screening - 09/01/17 10:54 Glucose measurement 0.8 0.5-2.2 D-DIMER - 09/01/17 10:54 D-DIMER 311 0-400 Bacterial blood culture - 09/01/17 13:20 Bacterial blood culture Final report Bacterial blood culture - 09/01/17 13:20 Arterial blood gas - 09/01/17 13:35 ABG SITE RIGHT RADIAL ALLENS TEST PASS FRACTIONATED INSPIRED OXYGEN 28 SITE HELD 5 Blood hemoglobin measurement (mass/volume) 14.0-18.0 Arterial blood pH measurement 7.40 7.35-7.45 Arterial blood partial pressure of carbon dioxide 36 35-48 Arterial blood partial pressure of oxygen 65 80-100 Carboxyhemoglobin 14.5 12.0-16.0 Arterial blood oxygen saturation measurement 93 >=95 Arterial blood bicarbonate measurement (moles/volume) 22 21-28 Arterial blood carbon dioxide, total measurement (mole s/volume) 23.2 22-29 Arterial blood base excess determination -2.3 -2.0-2.0 Base excess -2.8 -2.0-3.0 Bacterial blood culture - 09/01/17 14:05 Bacterial blood culture Final report Bacterial blood culture - 09/01/17 14:05 Complete blood count (CBC) with differen tial count - 09/02/17 05:20 LYMPHOCYTES % 11.2 18.0-47.0 RED CELL DISTRIBUTION WIDTH 13.8 11 .5-14.5 Glucose measurement 1.3 0.9-5.1 Serum albumin to globulin ratio 0.9 0.1-0.9 Blood erythrocytes count (number/volume) 3.67 4.20-5.40 Blood hemoglobin measurement (mass/volume) 12.4 12.0-16.0 Venous blood hematocrit (volume fraction) 39.0 37.0-47.0 MCH 33.8 27.0-31.0 Erythrocyte mean corpuscular hemoglobin concentration measurement (mass/volume) 31.7 33.0-37.0 Blood platelets count (number/volume) 224 130-400 Automated neutrophil percentage 78.9 40.0-75.0 Monocyte percentage 7.9 0.0-10.0 Eosinophil % 1.2 0.0-6.0 Basophil % 0.8 0.0-2.0 Neutrophil count 9.0 1.9-8.1 Blood eosinophils count (number/volume) 0.1 0.0-0.6 Blood basophils count (number/volume) 0.1 0.0-0.2 MCV 106.0 80.0-99.0 BASIC METABOLIC PANEL - 09/02/17 05:20 CARBON DIOXIDE 23.0 22-29 EST GLOMERULAR FILTRATION RATE 86.0 >59 eGFR 99.1 >59 Glucose measurement 112 98-107 Serum or plasma urea nitrogen measurement (mass/volume ) 15.0 9.8-20.1 Serum or plasma urea nitrogen/creatinine mass ratio 19 10- 20 Serum albumin to globulin ratio 11 0-14 Calcium measurement (mass/volume) 9.7 8.4-10.2 Complete blood count (CBC) with reflex m anual white blood cell differential - 11/06/17 17:00 BAND NEUTROPHILS % 2 0-8 LYMPHOCYTES % 11 18-47 NEUTROPHILS % 85 40-75 RED CELL DISTRIBUTION WIDTH 13.3 11 .5-14.5 Glucose measurement 1.2 0.9-5.1 Serum albumin to globulin ratio 0.2 0.1-0.9 Blood erythrocytes count (number/volume) 4.22 4.20-5.40 Blood hemoglobin measurement (mass/volume) 14.2 12.0-16.0 Venous blood hematocrit (volume fraction) 43.8 37.0-47.0 MCH 33.7 27.0-31.0 Erythrocyte mean corpuscular hemoglobin concentration measurement (mass/volume) 32.4 33.0-37.0 Blood platelets count (number/volume) 407 130-400 Monocyte percentage 2 0-10 Neutrophil count 9.4 1.9-8.1 RBC morphology NORMAL Blood band neutrophils count (number/volume) 0.2 0.0-0.9 Total cell count 100 100 MCV 104.0 80.0-99.0 Drug screening - 09/07/17 17:00 Glucose measurement < 10 <10 Acetaminophen level (mass/volume) - 04/18 17:00 Acetaminophen level (mass/volume) < 10-30 LITHIUM - 09/07/17 17:00 LITHIUM > 3.5 1.0-1.2 Comprehensive metabolic panel - 09/07/17 17:00 ALKALINE PHOSPHATASE 67 40-150 CARBON DIOXIDE 26.0 22-29 EST GLOMERULAR FILTRATION RATE 57.1 >59 eGFR 65.8 >59 GLOBULIN 3.5 1.9-3.8 Glucose measurement 105 98-107 Serum or plasma urea nitrogen measurement (mass/volume ) 9.0 9.8-20.1 Serum or plasma urea nitrogen/creatinine mass ratio 8 10-20 Serum or plasma alanine aminotransferase measurement (enzymatic activity/volume) 54 0-55 Serum or plasma albumin measurement (mass/volume) 3.6 3.5- 5.0 Serum albumin to globulin ratio 12 0-14 Calcium measurement (mass/volume) 10.4 8.4-10.2 Serum or plasma troponin i.cardiac measu rement (mass/volume) - 09/07/17 17:00 Serum or plasma troponin i.cardiac measurement (mass/v olume) < 0.00-0.06 Urinalysis with reflex to culture - 04/18 18:30 BILIRUBIN,URINE NEGATIVE NEGATIVE GLUCOSE,URINE NEGATIVE NEGATIVE KETONES,URINE TRACE NEGATIVE UROBILINOGEN,URINE 0.2 0.2 WBC,URINE NONE SEEN NONE SEEN Urine culture NO Urine color YELLOW YELLOW Urine appearance Clear CLEAR Urine pH measurement 7.5 4.5-7.5 Urine blood detection NEGATIVE NEGATIVE Urine nitrate measurement NEGATIVE NEGA TIVE Leukocyte esterase ur dipstick NEGATIVE NEGATIVE Erythrocytes detection in urine sediment by light micr oscopy NONE SEEN NONE SEEN Bacteria detection in urine sediment by light microsco py NONE SEEN NONE SEEN Squamous epithelial cells detection in u rine sediment by light microscopy NONE SEEN Urine protein detection NEGATIVE NEGATI VE Urine specific gravity measurement 1.010 1.002-1.030 Drug screening - 09/07/17 18:30 CHAIN OF CUSTODY COCUST BARBITURATE SCREEN,URINE NEG NEG COCAIN SCREEN,URINE NEG NEG PHENCYCLIDINE SCREEN,URINE NEG NEG Urine benzodiazepines detection by screening method NEG NEG Amphetamine ur screen NEG NEG Urine cannabinoids detection by screening method N EG NEG Urine opiates screening test NEG N EG Urine tricyclic antidepressant measurement POS NEG C. DIFFICILE BY PCR - 09/07/17 20:30 Serum albumin to globulin ratio NEGATIVE NEGATIVE INFLUENZA ATB - 02/10/18 20:06 INFLUENZA A NEG NEGATIVE INFLUENZA B NEG NEGATIVE Complete blood count (CBC) with differen tial count - 07/16/18 09:00 LYMPHOCYTES % 26.7 18.0-47.0 RED CELL DISTRIBUTION WIDTH 14.8 11 .5-14.5 Glucose measurement 1.1 0.9-5.1 Serum albumin to globulin ratio 0.4 0.1-0.9 Blood erythrocytes count (number/volume) 4.57 4.20-5.40 Blood hemoglobin measurement (mass/volume) 14.9 12.0-16.0 Venous blood hematocrit (volume fraction) 44.8 37.0-47.0 MCH 32.6 27.0-31.0 Erythrocyte mean corpuscular hemoglobin concentration measurement (mass/volume) 33.2 33.0-37.0 Blood platelets count (number/volume) 307 130-400 Automated neutrophil percentage 62.1 40.0-75.0 Monocyte percentage 9.3 0.0-10.0 Eosinophil % 0.2 0.0-6.0 Basophil % 1.7 0.0-2.0 Neutrophil count 2.6 1.9-8.1 Blood eosinophils count (number/volume) 0.0 0.0-0.6 Blood basophils count (number/volume) 0.1 0.0-0.2 MCV 98.2 80.0-99.0 Comprehensive metabolic panel - 07/16/18 09:00 ALKALINE PHOSPHATASE 83 40-150 CARBON DIOXIDE 20.0 22-29 GLOBULIN 3.5 1.9-3.8 Glucose measurement 103 98-107 Serum or plasma urea nitrogen measurement (mass/volume ) 12.0 9.8-20.1 Serum or plasma urea nitrogen/creatinine mass ratio 16 10- 20 Serum or plasma alanine aminotransferase measurement (enzymatic activity/volume) 19 0-55 Serum or plasma albumin measurement (mass/volume) 3.6 3.5- 5.0 Serum albumin to globulin ratio 16 0-14 Calcium measurement (mass/volume) 9.2 8.4-10.2 Lipid panel - 07/16/18 09:00 Glucose measurement 204 30-200 Serum or plasma cholesterol in HDL measurement (mass/v olume) 72 35-60 Serum or plasma cholesterol in VLDL measurement (mass/ volume) 41 5-40 Total cholesterol/cholesterol in HDL (percentile) 5 0-5 Cholesterol in LDL [mass/volume] in serum or plasma by calculation 218 <100 Thyroid stimulating hormone (TSH) assay with reflex to free thyroxine - 07/16/18 09:00 Serum albumin to globulin ratio 1.12 0.35-4.94 Serum or plasma troponin i.cardiac measu rement (mass/volume) - 07/16/18 09:00 Serum or plasma troponin i.cardiac measurement (mass/v olume) < 0.00-0.06 Serum or plasma prolactin measurement (m ass/volume) - 07/16/18 09:00 Serum or plasma prolactin measurement (mass/volume) 6.5 4.8-23.3 Complete blood count (CBC) with differen tial count - 11/16/18 15:47 LYMPHOCYTES % 23.7 18.0-47.0 RED CELL DISTRIBUTION WIDTH 13.7 11 .5-14.5 Glucose measurement 1.2 0.9-5.1 Serum albumin to globulin ratio 0.5 0.1-0.9 Blood erythrocytes count (number/volume) 4.25 4.20-5.40 Blood hemoglobin measurement (mass/volume) 14.1 12.0-16.0 Venous blood hematocrit (volume fraction) 43.7 37.0-47.0 Erythrocyte mean corpuscular hemoglobin concentration measurement (mass/volume) 32.3 33.0-37.0 Blood platelets count (number/volume) 277 130-400 Automated neutrophil percentage 64.1 40.0-75.0 Monocyte percentage 10.5 0.0-10.0 Eosinophil % 0.2 0.0-6.0 Basophil % 1.4 0.0-2.0 Neutrophil count 3.3 1.9-8.1 Blood eosinophils count (number/volume) 0.0 0.0-0.6 Blood basophils count (number/volume) 0.1 0.0-0.2 Comprehensive metabolic panel - 11/16/18 15:47 ALKALINE PHOSPHATASE 82 40-150 CARBON DIOXIDE 23.0 22-29 GLOBULIN 3.1 1.9-3.8 Glucose measurement 106 98-107 Serum or plasma urea nitrogen measurement (mass/volume ) 14.0 9.8-20.1 Serum or plasma urea nitrogen/creatinine mass ratio 17 10- 20 Serum or plasma alanine aminotransferase measurement (enzymatic activity/volume) 19 0-55 Serum or plasma albumin measurement (mass/volume) 3.8 3.5- 5.0 Serum albumin to globulin ratio 15 0-14 Calcium measurement (mass/volume) 9.3 8.4-10.2 Lipase - 11/16/18 15:47 Lipase 43 8-78 Serum or plasma troponin i.cardiac measu rement (mass/volume) - 11/16/18 15:47 Serum or plasma troponin i.cardiac measurement (mass/v olume) < 0.00-0.06 Urinalysis with reflex to culture - 11/02 03/20 16:35 BILIRUBIN,URINE NEGATIVE NEGATIVE GLUCOSE,URINE NEGATIVE NEGATIVE KETONES,URINE NEGATIVE NEGATIVE TRANSITIONAL EPI CELLS,URINE 0-2 UROBILINOGEN,URINE 0.2 0.2 WBC,URINE 7-10 NONE SEEN Urine culture YES Urine color YELLOW YELLOW Urine appearance SL CLOUDY CLEAR Urine pH measurement 5.5 4.5-7.5 Urine blood detection 1+ NEGATIVE Urine nitrate measurement NEGATIVE NEGA TIVE Leukocyte esterase ur dipstick 1+ NEGATIVE Erythrocytes detection in urine sediment by light micr oscopy 2-5 NONE SEEN Bacteria detection in urine sediment by light microsco py 1+ NONE SEEN Squamous epithelial cells detection in u rine sediment by light microscopy 2-5 Mucus detection in urine sediment by light microscopy 1+ Urine protein detection NEGATIVE NEGATI VE Urine specific gravity measurement 1.020 1.002-1.030 Urine culture - 11/16/18 16:35 Urine culture - 12/09/18 10:50 Urinalysis with reflex to culture - 12/03 05/20 15:50 BILIRUBIN,URINE NEGATIVE NEGATIVE GLUCOSE,URINE NEGATIVE NEGATIVE KETONES,URINE NEGATIVE NEGATIVE UROBILINOGEN,URINE 0.2 0.2 WBC,URINE 0-2 NONE SEEN Urine culture YES Urine color YELLOW YELLOW Urine appearance Clear CLEAR Urine pH measurement 7.5 4.5-7.5 Urine blood detection TRACE-INTACT NEGA TIVE Urine nitrate measurement NEGATIVE NEGA TIVE Leukocyte esterase ur dipstick TRACE NEGATIVE Erythrocytes detection in urine sediment by light micr oscopy 0-2 NONE SEEN Bacteria detection in urine sediment by light microsco py TRACE NONE SEEN Squamous epithelial cells detection in u rine sediment by light microscopy 0-2 Urine protein detection NEGATIVE NEGATI VE Urine specific gravity measurement 1.015 1.002-1.030 Urine culture - 12/19/18 15:50 Complete blood count (CBC) with differen tial count - 12/21/18 09:19 LYMPHOCYTES % 25.5 18.0-47.0 RED CELL DISTRIBUTION WIDTH 13.2 11 .5-14.5 Glucose measurement 1.1 0.9-5.1 Serum albumin to globulin ratio 0.5 0.1-0.9 Blood erythrocytes count (number/volume) 4.29 4.20-5.40 Blood hemoglobin measurement (mass/volume) 14.3 12.0-16.0 Venous blood hematocrit (volume fraction) 43.6 37.0-47.0 Erythrocyte mean corpuscular hemoglobin concentration measurement (mass/volume) 32.9 33.0-37.0 Blood platelets count (number/volume) 325 130-400 Automated neutrophil percentage 62.2 40.0-75.0 Monocyte percentage 10.8 0.0-10.0 Eosinophil % 0.2 0.0-6.0 Basophil % 1.4 0.0-2.0 Neutrophil count 2.7 1.9-8.1 Blood eosinophils count (number/volume) 0.0 0.0-0.6 Blood basophils count (number/volume) 0.1 0.0-0.2 Comprehensive metabolic panel - 12/21/18 09:19 ALKALINE PHOSPHATASE 88 40-150 CARBON DIOXIDE 19.0 22-29 EST GLOMERULAR FILTRATION RATE 80.6 >59 GLOBULIN 3.0 1.9-3.8 Glucose measurement 101 98-107 Serum or plasma urea nitrogen measurement (mass/volume ) 7.0 9.8-20.1 Serum or plasma urea nitrogen/creatinine mass ratio 9 10-20 Serum or plasma alanine aminotransferase measurement (enzymatic activity/volume) 34 0-55 Serum or plasma albumin measurement (mass/volume) 3.9 3.5- 5.0 Serum albumin to globulin ratio 18 0-14 Calcium measurement (mass/volume) 9.4 8.4-10.2 Lipid panel - 12/21/18 09:19 Glucose measurement 341 30-200 Serum or plasma cholesterol in HDL measurement (mass/v olume) 80 35-60 Serum or plasma cholesterol in VLDL measurement (mass/ volume) 68 5-40 Total cholesterol/cholesterol in HDL (percentile) 4 0-5 Cholesterol in LDL [mass/volume] in serum or plasma by calculation 206 <100 Serum or plasma prolactin measurement (m ass/volume) - 12/21/18 09:19 Serum or plasma prolactin measurement (mass/volume) 6.2 4.8-23.3 TISSUE - 03/16/19 12:05 SPECIMEN NUMBER [id number] [facility] Date Reported 03/18/19 [facility] COMPLETE BLOOD COUNT W/DIFF - 03/30/19 1 3:23 HEMATOCRIT 43.4 % 37.0-47.0 HEMOGLOBIN 14.5 g/dL 12.0-16.0 MCH 34.5 pG 27.0-31.0 MCHC 33.5 g/dL 33.0-37.0 MCV 103.0 fL 80.0-99.0 PLATELET COUNT 381 x10-3/uL 130-400 RED BLOOD COUNT 4.21 x10-6/uL 4.20-5.40 RED CELL DISTRIBUTION WIDTH 12.8 % 11 .5-14.5 WHITE BLOOD COUNT 5.4 x10-3/uL 4.8-10.8 Neutrophils Percent Auto 65.9 % 40.0- 75.0 Lymphocytes Percent Auto 24.7 % 18.0- 47.0 Monocytes Percent Auto 7.3 % 0.0-10. 0 Eosinophils Percent Auto 0.3 % 0.0-6 .0 Basophils Percent Auto 1.8 % 0.0-2.0 Neutrophils Absolute Auto 3.5 x10-3/uL 1 .9-8.1 Lymphocytes Absolute Auto 1.3 x10-3/uL 0.9-5.1 Monocytes Absolute Auto 0.4 x10-3/uL 0.1 -0.9 Eosinophils Absolute Auto 0.0 x10-3/uL 0 .0-0.6 Basophils Absolute Auto 0.1 x10-3/uL 0.0 -0.2 COMPREHENSIVE METABOLIC PANEL - 03/30/19 13:23 ALBUMIN/GLOBULIN RATIO 1.2 1.0-2.0 ALBUMIN 4.0 g/dL 3.5-5.0 ALKALINE PHOSPHATASE 105 U/L 40-150 ALANINE AMINOTRANSFERASE 28 U/L 0-55 ASPARTATE AMINO TRANSFERASE 21 U/L 5- 34 BUN/CREATININE RATIO 16 10-20 BLOOD UREA NITROGEN 13.0 mg/dL 9.8-20.1 CALCIUM 9.5 mg/dL 8.4-10.2 CHLORIDE 98 mmol/L 98-107 CARBON DIOXIDE 19.0 mmol/L 22-29 EST GLOMERULAR FILTRATION RATE 79.4 * >59 ANION GAP 17 MEQ/L 0-14 GLOBULIN 3.3 g/dL 1.9-3.8 GLUCOSE 98 mg/dL 70-105 POTASSIUM 3.7 mmol/L 3.5-5.1 SODIUM 130 mmol/L 136-145 TOTAL PROTEIN 7.3 g/dL 6.4-8.3 Creatinine 0.79 mg/dL 0.57-1.11 Bilirubin Total 0.40 mg/dL 0.0-1.0 Lipid Panel - 03/30/19 13:23 CHOLESTEROL 361 mg/dL 150-200 HDL CHOLESTEROL 69 mg/dL 35-60 TRIGLYCERIDES 458 mg/dL 30-200 VLDL CHOLESTEROL 92 5-40 LDL Cholesterol 255 mg/dL <100 Chol HDL Ratio 5 % 0-5 Prolactin - 03/30/19 13:23 PROLACTIN 4.6 ng/mL NRG UA w/Reflex to Culture - 04/07/19 11:39 ADD URINE CULTURE No NRG BACTERIA,URINE 1+ /hpf None Seen BILIRUBIN,URINE Negative Negative BLOOD,URINE 1+ Negative CLARITY,URINE Clear Clear COLOR,URINE Yellow Yellow GLUCOSE,URINE Negative Negative KETONES,URINE Negative Negative LEUKOCYTE ESTERASE ,URINE Negative Nega tive MUCUS,URINE 1+ /hpf NRG NITRATE,URINE Negative Negative PH,URINE 6.5 4.5-7.5 PROTEIN,URINE Negative Negative RBC,URINE 2-5 /hpf None Seen SPECIFIC GRAVITY,URINE 1.015 1.002-1 .030 SQUAMOUS EPITHELIAL CELL,UR 2-5 /hfp NR G UROBILINOGEN,URINE 0.2 eu/dL 0.2 WBC,URINE 0-2 /hpf None Seen Complete urinalysis with reflex to cultu re - 08/09/19 11:40 Urine color determination YELLOW NRG Urine clarity determination CLEAR NR G Urine pH measurement by test strip 7 5-9 Specific gravity of urine by test strip 1.015 1.016-1.022 Urine protein assay by test strip, semi-quantitative 1+ NEGATIVE Urine glucose detection by automated test strip NE GATIVE NEGATIVE Erythrocytes detection in urine sediment by light micr oscopy 2+ NEGATIVE Urine ketones detection by automated test strip NE GATIVE NEGATIVE Urine nitrite detection by test strip NEGATIVE NEGATIVE Urine total bilirubin detection by test strip NEGA TIVE NEGATIVE Urine urobilinogen measurement by automated test strip (mass/volume) NORMAL NORMAL Urine leukocyte esterase detection by dipstick 1+ NEGATIVE Automated urine sediment erythrocyte cou nt by microscopy (number/high power field) [HPF] NRG Automated urine sediment leukocyte count by microscopy (number/high power field) [HPF] NRG Bacteria detection in urine sediment by light microsco py NEGATIVE NRG Squamous epithelial cells detection in u rine sediment by light microscopy 10-25 NRG Crystals detection in urine sediment by light microsco py NONE NRG Casts detection in urine sediment by light microscopy NONE NRG Mucus detection in urine sediment by light microscopy NEGATIVE NRG Complete urinalysis with reflex to culture NO NRG Automated blood complete blood count (he mogram) panel - 08/09/19 11:56 Blood leukocytes automated count (number/volume) 4.5 10*3/uL 4.3-11.0 Blood erythrocytes automated count (number/volume) 3.76 10*6/uL 4.35-5.85 Venous blood hemoglobin measurement (mass/volume) 12.8 g/dL 11.5-16.0 Blood hematocrit (volume fraction) 37 % 35-52 Automated erythrocyte mean corpuscular volume 99 [ foz_us] 80-99 Automated erythrocyte mean corpuscular h emoglobin (mass per erythrocyte) 34 pg 25-34 Automated erythrocyte mean corpuscular h emoglobin concentration measurement (mass/volume) 34 g/dL 32-36 Automated erythrocyte distribution width ratio 13. 8 % 10.0- 14.5 Automated blood platelet count (count/volume) 402 10*3/uL 130-400 Automated blood platelet mean volume measurement 9.5 [foz_us] 7.4-10.4 Comprehensive metabolic panel - 08/09/19 11:56 Serum or plasma sodium measurement (moles/volume) 134 mmol/L 135-145 Serum or plasma potassium measurement (moles/volume) 4.2 mmol/L 3.6-5.0 Serum or plasma chloride measurement (moles/volume) 99 mmol/L 98-107 Carbon dioxide 24 mmol/L 21-32 Serum or plasma anion gap determination (moles/volume) 11 mmol/L 5-14 Serum or plasma urea nitrogen measurement (mass/volume ) 9 mg/dL 7-18 Serum or plasma creatinine measurement (mass/volume) 0.72 mg/dL 0.60-1.30 Serum or plasma urea nitrogen/creatinine mass ratio 13 NRG Serum or plasma creatinine measurement w ith calculation of estimated glomerular filtration rate > NRG Serum or plasma glucose measurement (mass/volume) 104 mg/dL 70-105 Serum or plasma calcium measurement (mass/volume) 9.9 mg/dL 8.5-10.1 Serum or plasma total bilirubin measurement (mass/volu me) 0.3 mg/dL 0.1-1.0 Serum or plasma alkaline phosphatase quan surement (enzymatic activity/volume) 131 U/L 40-136 Serum or plasma aspartate aminotransfera se measurement (enzymatic activity/volume) 23 U/L 5-34 Serum or plasma alanine aminotransferase measurement (enzymatic activity/volume) 25 U/L 0-55 Serum or plasma protein measurement (mass/volume) 6.9 g/dL 6.4-8.2 Serum or plasma albumin measurement (mass/volume) 4.0 g/dL 3.2-4.5 CALCIUM CORRECTED 9.9 mg/dL 8.5-10.1 Lipid 1996 panel - 08/09/19 11:56 Serum or plasma triglyceride measurement (mass/volume) 141 mg/dL <150 Serum or plasma cholesterol measurement (mass/volume) 294 mg/dL < 200 Serum or plasma cholesterol in HDL measurement (mass/v olume) 83 mg/dL 40-60 Cholesterol in LDL [mass/volume] in serum or plasma by direct assay 192 mg/dL 1-129 Serum or plasma cholesterol in VLDL measurement (mass/ volume) 28 mg/dL 5-40 THYROID STIMULATING HORMONE - 08/09/19 1 1:56 THYROID STIMULATING HORMONE 0.93 u[iU]/mL 0.35-4.94 Clostridium difficile DNA detection by p robe and target amplification method - 08/13/19 15:35 Clostridium difficile DNA detection by p robe and target amplification method Positive NRG C DIFFICILE AG + TOXIN A/B. - 08/13/19 1 5:35 FREE TEXT ENTRY 2 POSITIVE FOR GDH ANTIGEN NRG FREE TEXT ENTRY 3 NEGATIVE FOR TOXINS A AND B NRG RESULTS INDETERMINANT; MOLECULAR TEST TO FOLLOW NRG Mycoplasma - 08/16/19 16:14 Mycoplasma Negative Negative Complete blood count (CBC) with automate d white blood cell (WBC) differential - 01/10/20 19:25 Blood leukocytes automated count (number/volume) 4.1 10*3/uL 4.3-11.0 Blood erythrocytes automated count (number/volume) 4.17 10*6/uL 4.35-5.85 Venous blood hemoglobin measurement (mass/volume) 14.2 g/dL 11.5-16.0 Blood hematocrit (volume fraction) 41 % 35-52 Automated erythrocyte mean corpuscular volume 97 [ foz_us] 80-99 Automated erythrocyte mean corpuscular h emoglobin (mass per erythrocyte) 34 pg 25-34 Automated erythrocyte mean corpuscular h emoglobin concentration measurement (mass/volume) 35 g/dL 32-36 Automated erythrocyte distribution width ratio 14. 6 % 10.0- 14.5 Automated blood platelet count (count/volume) 294 10*3/uL 130-400 Automated blood platelet mean volume measurement 10.6 [foz_us] 7.4-10.4 Automated blood neutrophils/100 leukocytes 51 % 42-75 Automated blood lymphocytes/100 leukocytes 36 % 12-44 Blood monocytes/100 leukocytes 11 % 0-12 Automated blood eosinophils/100 leukocytes 1 % 0-10 Automated blood basophils/100 leukocytes 1 % 0-10 Blood neutrophils automated count (number/volume) 2.1 10*3 1.8-7.8 Blood lymphocytes automated count (number/volume) 1.5 10*3 1.0-4.0 Blood monocytes automated count (number/volume) 0. 5 10*3 0.0-1.0 Automated eosinophil count 0.1 10*3/uL 0 .0-0.3 Automated blood basophil count (count/volume) 0.0 10*3/uL 0.0-0.1 Comprehensive metabolic panel - 01/10/20 19:25 Serum or plasma sodium measurement (moles/volume) 134 mmol/L 135-145 Serum or plasma potassium measurement (moles/volume) 3.9 mmol/L 3.6-5.0 Serum or plasma chloride measurement (moles/volume) 103 mmol/L 98-107 Carbon dioxide 20 mmol/L 21-32 Serum or plasma anion gap determination (moles/volume) 11 mmol/L 5-14 Serum or plasma urea nitrogen measurement (mass/volume ) 12 mg/dL 7-18 Serum or plasma creatinine measurement (mass/volume) 0.76 mg/dL 0.60-1.30 Serum or plasma urea nitrogen/creatinine mass ratio 16 NRG Serum or plasma creatinine measurement w ith calculation of estimated glomerular filtration rate > NRG Serum or plasma glucose measurement (mass/volume) 95 mg/dL 70-105 Serum or plasma calcium measurement (mass/volume) 9.2 mg/dL 8.5-10.1 Serum or plasma total bilirubin measurement (mass/volu me) 0.2 mg/dL 0.1-1.0 Serum or plasma alkaline phosphatase quan surement (enzymatic activity/volume) 97 U/L 40-136 Serum or plasma aspartate aminotransfera se measurement (enzymatic activity/volume) 19 U/L 5-34 Serum or plasma alanine aminotransferase measurement (enzymatic activity/volume) 19 U/L 0-55 Serum or plasma protein measurement (mass/volume) 6.8 g/dL 6.4-8.2 Serum or plasma albumin measurement (mass/volume) 4.2 g/dL 3.2-4.5 CALCIUM CORRECTED 9.0 mg/dL 8.5-10.1 Serum or plasma C reactive protein measu rement (mass/volume) - 01/10/20 19:25 Serum or plasma C reactive protein measurement (mass/v olume) 0.61 mg/dL 0.00-0.50 Magnesium - 01/10/20 19:25 Magnesium 1.9 mg/dL 1.6-2.4 Complete urinalysis with reflex to cultu re - 01/10/20 20:45 Urine color determination YELLOW NRG Urine clarity determination CLEAR NR G Urine pH measurement by test strip 6.5 5-9 Specific gravity of urine by test strip 1.015 1.016-1.022 Urine protein assay by test strip, semi-quantitative NEGATIVE NEGATIVE Urine glucose detection by automated test strip NE GATIVE NEGATIVE Erythrocytes detection in urine sediment by light micr oscopy NEGATIVE NEGATIVE Urine ketones detection by automated test strip NE GATIVE NEGATIVE Urine nitrite detection by test strip NEGATIVE NEGATIVE Urine total bilirubin detection by test strip NEGA TIVE NEGATIVE Urine urobilinogen measurement by automated test strip (mass/volume) 0.2 mg/dL < = 1.0 Urine leukocyte esterase detection by dipstick NEG ATIVE NEGATIVE Automated urine sediment erythrocyte cou nt by microscopy (number/high power field) [HPF] NRG Automated urine sediment leukocyte count by microscopy (number/high power field) NONE NRG Bacteria detection in urine sediment by light microsco py TRACE NRG Crystals detection in urine sediment by light microsco py NONE NRG Casts detection in urine sediment by light microscopy NONE NRG Mucus detection in urine sediment by light microscopy NEGATIVE NRG Complete urinalysis with reflex to culture NO NRG Encounters ACCT No. Visit Date/Time Discharge Status Pt. Type Provider Facility Loc./Unit Complaint [id number] 08/16/2019 15:25:00 08/16/2019 17:05: 00 DIS Outpatient Anthony Landon [id number] 12/02/2019 11:01:00 12:16:00 DIS Outpatient GISELLE DURAND MD [facility] ATCRAIF ANXIETY [id number] 07/29/2019 11:56:00 11:57:00 DIS Outpatient SUZI DE OLIVEIRA [facility] XRAY back pain [id number] 07/29/2019 11:08:00 11:56:00 DIS Outpatient SUZI DE OLIVEIRA [facility] ATCRAIF Pinched Nerve [id number] 07/25/2019 09:14:00 10:39:00 DIS Outpatient GISELLE DURAND MD [facility] ATCRAIF Anxiety/ Asthma [id number] 06/21/2019 13:00:00 14:01:00 DIS Outpatient GISELLE DURAND MD [facility] ATCRAIF Dizzyness,Fatigue [id number] 05/21/2019 17:53:00 20:34:00 DIS Emergency Elmer SMITH~GARETHKWilma, Pearl Hernandez [facility] ED Headache, Fatigue [id number] 04/27/2019 12:00:00 23:59:59 CLS [facility]read[facility] [id number] 04/22/2019 09:08:00 10:45:00 DIS Outpatient GISELLE DURAND MD [facility] ATCRAIF ANXIETY [id number] 04/07/2019 11:34:00 11:35:00 [facility] LAB Hematuria [id number] 03/31/2019 18:18:00 18:19:00 [facility] REFLAB R31.9 [id number] 03/31/2019 14:44:00 16:38:00 DIS Outpatient ISABEL CARTER [facility] ATCRAIF intermit tent fever,chills,headache,dizzy [id number] 03/31/2019 15:31:00 15:32:00 DIS Outpatient CARTERISABEL IBRAHIM [facility] XRAY cough [id number] 03/30/2019 13:14:00 13:15:00 DIS Outpatient EMMANUEL SOLER [facility] LAB Other rat exterminator (current) dr chester therapy [id number] 03/16/2019 09:12:00 13:30:00 [facility] Radha [id number] 03/07/2019 09:12:00 11:15:00 DIS Outpatient GISELLE DURAND MD E [facility] ATCRAIF ANXIETY [id number] 01/05/2019 08:18:00 019 23:59:59 CLS Outpatient CARTERISABEL IBRAHMI [facility] RAD CALCULUS OF GALLBLADDER W/O CHOLECYSTITIS W/O OBST [id number] 12/21/2018 09:13:00 23:59:59 CLS Outpatient ISABEL CARTER [facility] RAD RIGHT UPPER QUADRANT PA IN [id number] 12/19/2018 15:26:00 019 16:25:00 DIS Emergency ELMER SMITH, PEARL Hernandez [facility] ER TROUBLE URINATING [id number] 11/16/2018 14:44:00 17:45:00 DIS Emergency JEANNIE SMITH, NUBIA Gauthier [facility] ER RIGHT SIDE PAIN [id number] 07/16/2018 08:55:00 23:59:59 CLS Outpatient EMMANUEL SOLER [facility] LAB OTHER ALF (CURREN T) DRUG THERAPY [id number] 07/16/2018 15:51:00 018 17:30:00 DIS Emergency JEANNIE SMITH, [facility] ER SHOULDER PAIN; EXHAUSTE D [id number] 04/15/2018 13:09:00 23:59:59 CLS Outpatient JOSEFA SMITH, JACINDA Gregory [facility] RAD RAD [id number] 02/10/2018 19:10:00 018 21:34:00 DIS Emergency YEN BUTLER PA-C [facility] ER FEVER 103/NAUSEA [id number] 09/07/2017 17:36:00 00:39:00 DIS Emergency RENALDO BUTLER PA-C [facility] ER OVERMEDICATED [id number] 09/01/2017 14:45:00 11:20:00 DIS Inpatient MICHELLE SMITH, LUPIS Montes [facility] MED/SURG PNEUMONIA; CONFUSION; H YPOXIA [id number] 08/21/2017 09:10:00 017 23:59:59 CLS Outpatient HUMERA THOMAS PA-C [facility] LAB LAB; COPD; BIPOLAR,IV U SE YEARS??? [id number] 07/17/2017 09:40:00 017 11:17:00 DIS Emergency ANIVALTERRENCE COSME DO, V [facility] ER SINUS AND FLU SYMPTOMS [id number] 07/16/2017 18:57:00 017 02:11:00 DIS Emergency EMMANUEL ARRIOLA [facility] ER NAUSEA; FATIGUE [id number] 06/17/2017 09:45:00 017 16:35:00 DIS Emergency OMER LOPEZ DO [facility] ER ALTERED MENTAL [id number] 12/09/2018 18:13:[address] Unknown ISABEL CARTER [facility] REF LAB R10.9 [id number] 06/12/2017 14:18:[address] Unknown LIBERTAD HUMPHRIES PA-C [facility] LAB LAB E03.9 [id number] R69 [id number] 12/09/2018 10:30:00 019 23:59:59 CLS Outpatient ISABEL CARTER [facility] [id number] 01/10/2020 18:47:00 020 22:19:00 DIS Emergency EDGAR ANDERSON MD [facility] ER DIARRHEA [id number] 08/09/2019 08:00:00 020 00:01:00 DIS Outpatient APRIL PAREDES DO [facility] LAB BIPOLAR,DIAREA,HEMATURE,HYPOLYN [id number] 11/08/2019 00:00:00 Document Registration [id number] 04/11/2017 09:05:00 04/13/2017 11: 00:00 DIS Inpatient , [facility]BINA [facility] F7MED
--- OUTSIDE RECORDS SUMMARY | 2020-01-12 22:16 | XMS REPORT | Continuity of Care Document ---
Author Author [facility] Address Unknown Phone Unavailable Care Team Providers Care Public Health Nutritionist Name Role Phone MAITE THOMAS MD PCP Insurance Providers Guarantor Azul Madden Address [address] [address] [facility] Policy Number [id number] Subscriber's Name Azul Madden Relationship 18 Self / Same As Patient Effective Date 17 [facility] Policy Number [id number] Subscriber's Name ChanoGala Roby Relationship 01 Effective Date 12 Advance Directives Directive Response Recorded Date/Time Advance Directives No 09/01/17 4:31pm Patient Resuscitation Status Full Code 09/01/17 4: 31pm Living Will No 09/01/17 4:31pm Name of DPOA CAMRYN,DAUGHTER 09/01/17 4:31pm DPOA Relationship to Patient DAUGHTER 09/01/17 4: 31pm DPOA 09/01/17 4:31pm Copy of DPOA on chart Yes 09/01/17 4:31pm Chief Complaint and Reason for Visit Chief Complaint PNEUMONIA; CONFUSION; HYPOXI A Reason for Visit Bipolar disorder Bipolar disorder COPD exacerbation Confusion Agitation Problems Medical Problem Onset Date Status Agitation Unknown Acute Anxiety Unknown Chronic Bipolar disorder Unknown Chronic Chronic back pain greater than 3 months duration Unknown Chronic Past Problems Medical Problem Onset Date Status COPD exacerbation Unknown Acute Change in mental status Unknown Acute Confusion Unknown Acute Dementia Unknown Acute Hypoxia Unknown Acute Nasal congestion Unknown Acute Pneumonia Unknown Acute Medications Current Home Medications Medication Dose Units Route Directions Days Qty Instructio ns Start Date Amitriptyline Hcl 25 Mg Tablet 25 Mg Oral Bedtime 3 0 Tablet 09/03/17 Azithromycin 250 Mg Tablet 250 Mg Oral Daily 4 Tab let 09/03/17 Baclofen 10 Mg Tablet 10 Mg Oral Twice A Day 60 Tab let 09/03/17 Bupropion Hcl (Bupropion Hcl Er (Sr)) 150 Mg Tab.er.12h 150 Mg Oral Twice A Day Cefdinir 300 Mg Capsule 300 Mg Oral Twice A Day 8 Ca psule 09/03/17 Clonazepam 1 Mg Tablet 0.5-1 Mg Oral Three Times A Day Gabapentin 400 Mg Capsule 400 Mg Oral Three Times A Day 90 Capsule 06/12/17 Hydroxyzine Hcl 50 Mg Tablet 50 Mg Oral Four Times Daily Levothyroxine Sodium (Synthroid) 25 Mcg Tablet 25 Mcg Oral D aily 30 Tablet 06/12/17 Mcgraw Carbonate (Mcgraw Carbonate Er) 300 Mg Tablet.er 300 Mg Oral Bedtime 30 Tablet 09/03/17 Meloxicam 15 Mg Tablet 15 Mg Oral Daily 30 Tablet 06/12/17 Past Home Medications Medication Directions Ordered Status Acetaminophen/Hydrocodone Bitart (Lawn) 5 Mg/325 Mg T ablet, 1-2 Tablet Oral Every 4-6 Hours As Needed as needed for For Pain Disco ntinued Albuterol (Ventolin Hfa) 90 Mcg Hfa.aer.ad, 2 Puff Inh alation Every 4-6 Hours As Needed as needed for For Coughing 07/17/17 Discontinued Amitriptyline Hcl 25 Mg Tablet, 25-100 Mg Oral Bedtime Discontinued Amoxicillin 875 Mg Tablet, 875 Mg Oral Every 12 Hours 07/17/17 Discontinued Baclofen 20 Mg Tablet, 10-20 Mg Oral Twice A Day Discontinued Cetirizine Hcl (Zyrtec) 10 Mg Tablet, 10 Mg Oral Daily 07/17/17 Discontinued Clonazepam (Klonopin) 1 Mg Tablet, 1 Mg Oral Twice A Day 09/18 Discontinued Gabapentin 400 Mg Capsule, 400 Mg Oral Three Times A Day Discontinued Levothyroxine Sodium (Synthroid) 25 Mcg Tablet, 25 Mcg Oral Otis y Discontinued Mcgraw Carbonate (Mcgraw Carbonate Er) 450 Mg Tablet.er, 4 50 Mg Oral Bedtime Discontinued Mcgraw Carbonate (Mcgraw Carbonate Er) 450 Mg Tablet.er, 4 50 Mg Oral Daily 06/12/17 Discontinued Mcgraw Carbonate (Mcgraw Carbonate Er) 450 Mg Tablet.er, 450 M [...] Problem Response Recorded Date/Time Onset Date Status Lives With Alone 09/01/2017 4:31pm Not Applicable Not Appl icable Marital Status 09/01/2017 4:31pm Not Applicable Not Ap plicable Smoking Status Start Date Stop Date Current every day smoker Hospital Discharge Instructions No hospital discharge instruction information available. Plan of Care Discharge Date 09/03/17 11:20am Disposition 01 HOME/SELF CARE Prescriptions See Medication Section Functional Status No functional status information available. Allergies, Adverse Reactions, Alerts Allergen Type Severity Reaction Status Last Updated Morphine Allergy Intermediate vomiting Active 07/16/17 Immunizations No immunization information available. Vital Signs Acute Vital Signs Vital Response Date/Time Height (Feet) 5 feet 09/01/2017 4:40pm Height (Inches) 4.00 inches 09/01/2017 4:40pm Height (Calculated Centimeters) 162.313841 cm 09/01/20 17 4:40pm Weight (Pounds) 147.6 09/03/2017 5:20am Weight (Ounces) 8.0 oz 06/17/2017 9:45am Weight (Calculated Kilograms) 66.394993 kg 09/03/2017 5:20am Weight (Calculated Grams) 52269.234 gm 09/03/2017 5:2 0am Body Mass Index (BMI) 25.8 09/01/2017 4:40pm Body Mass Index (BMI) Classification Overweight 4:40pm Temperature (Fahrenheit) 98.6 degrees F (96.8 - 100.4) 09/03 9:56am Blood Pressure Systolic 109 mm Hg (100 - 140) 09/03/2017 9:5 6am Blood Pressure Diastolic 64 mm Hg (60 - 100) 09/03/2017 9:56 am Pulse Rate (adult) 86 beats per minute (60 - 100) 7 9:56am Respiratory Rate 20 breaths per minute (12 - 24) 09/03/20 17 9:56am Respirations 20 breaths per minute (12 - 20) 09/01/20 17 3:26pm O2 Sat by Pulse Oximetry 95 % (90 - 100) 09/03/2017 9:56 am Ambulatory Vital Signs Vital Response Date/Time Height [...] with a HCV Nucleic Acid Amplification test ([id number]). Performed at: - [facility], [place], [place] [id number] Logistics Service Representative: ERLINDA Tao MD, Phone: [phone] White Blood Count 11.4 X10-3/UL H 4.8-10.8 09/02/2017 5:20am 5:58am Red Blood Count 3.67 X10-6/UL L 4.20-5.40 09/02/2017 5:20am 11/2016 5:58am Hemoglobin 12.4 G/DL 12.0-16.0 09/02/2017 5:20am 7 5:58am Hematocrit 39.0 % 37.0-47.0 09/02/2017 5:20am 7 5:58am Mean Corpuscular Volume 106.0 FL H 80.0-99.0 2016 5:20am 09/02/2017 5:58am Mean Corpuscular Hemoglobin 33.8 PG H 27.0-31.0 5:20am 09/02/2017 5:58am Mean Corpuscular Hemoglobin Concent 31.7 G/DL L 33.0 -37.0 09/02/2017 5:20am 09/02/2017 5:58am Red Cell Distribution Width 13.8 % 11.5-14.5 5:20am 09/02/2017 5:58am Platelet Count 224 X10-3/UL 130-400 09/02/2017 5:20am 2016 5:58am Neutrophils (%) (Auto) 78.9 % H 40.0-75.0 [...] (Auto) 0.1 X10-3/UL 0.0-0.2 09/02/2017 5:20am 5:58am Differential Total Cells Counted 100 100 09/01/2017 10:54am 09/01/2017 11:24am Neutrophils % (Manual) 85 % H 40-75 09/01/2017 10:54a m 09/01/2017 11:24am Lymphocytes % (Manual) 7 % L 18-47 09/01/2017 10:54a m 09/01/2017 11:24am Monocytes % (Manual) 6 % 0-10 09/01/2017 10:54am 09/01/2017 11:24am Eosinophils % (Manual) 1 % 0-6 09/01/2017 10:54a m 09/01/2017 11:24am Basophils % (Manual) 1 % 0-2 09/01/2017 10:54am 09/01/2017 11:24am Neutrophils # (Manual) 8.6 X10-3/UL H 1.9-8.1 017 10:54am 09/01/2017 11:24am Lymphocytes # (Manual) 0.7 X10-3/UL L 0.9-5.1 017 10:54am 09/01/2017 11:24am Monocytes # (Manual) 0.6 X10-3/UL 0.1-0.9 7 10:54am 09/01/2017 11:24am Eosinophils # (Manual) 0.1 X10-3/UL 0.0-0.6 017 10:54am 09/01/2017 11:24am Basophils # (Manual) 0.1 X10-3/UL 0.0-0.2 7 10:54am 09/01/2017 11:24am Red Cell Morphology Comment NORMAL 09/01/2017 1 0:54am 09/01/2017 11:24am D-Dimer 311 NG/ML 0-400 09/01/2017 [...] RESULTS. g/dL 14.0-18.0 09/01/2017 1:35pm 09/01/2017 1:48pm Glucose Level 80 MG/DL 70-105 09/02/2017 5:20am 09/02/20 17 6:16am Blood Urea Nitrogen 15.0 MG/DL 9.8-20.1 09/02/2017 5:20am 1 11/02/2016 6:16am Creatinine 0.77 MG/DL 0.57-1.11 09/02/2017 5:20am 7 6:16am BUN/Creatinine Ratio 19 10-20 09/02/2017 5:20am 1 11/02/2016 6:16am EGFR Other 86.0 * >59 09/02/2017 5:20am 09/02/2017 6:16am *RESULT UNITS: ML/MIN/1.73 EGFR 99.1 * >59 09/02/2017 5:20am 09/02/2017 6:16am *RESULT UNITS: ML/MIN/1.73 Aspartate Amino Transf (AST/SGOT) 106 U/L H 5-34 09/01/2017 10:54am 09/01/2017 11:31am Alanine Aminotransferase (ALT/SGPT) 60 U/L H 0-55 09/01/2017 10:54am 09/01/2017 11:31am Alkaline Phosphatase 67 IU/L 40-150 09/01/2017 10:54am 09/01/2017 11:31am Total Bilirubin 0.60 MG/DL 0.0-1.0 09/01/2017 10:54am 09/01 11:31am Total Protein 7.0 G/DL 6.4-8.3 09/01/2017 10:54am 017 11:31am Albumin 3.5 g/dL 3.5-5.0 09/01/2017 10:54am 09/01/2017 11 :31am Albumin/Globulin Ratio 1.0 1.0-2.0 09/01/2017 10:54a m 09/01/2017 11:31am Globulin 3.5 G/DL 1.9-3.8 09/01/2017 10:54am 09/01/2017 1 1:31am Calcium Level 9.7 MG/DL 8.4-10.2 09/02/2017 5:20am 017 6:16am Sodium Level 142 MMOL/L 136-145 09/02/2017 5:20am 7 6:16am Potassium Level 3.6 MMOL/L 3.5-5.1 09/02/2017 5:20am 2016 6:16am Chloride Level 112 MMOL/L H 98-107 09/02/2017 5:20am 017 6:16am Carbon Dioxide Level 23.0 MMOL/L 22-29 09/02/2017 5:20am 1 11/02/2016 6:16am Anion Gap 11 MEQ/L 0-14 09/02/2017 5:20am 09/02/2017 6 :16am Thyroid Stimulating Hormone (TSH) 1.33 MIU/L 0.35-4 .94 09/01/2017 10:54am 09/01/2017 11:45am Troponin I < 0.02 NG/ML 0.00-0.06 09/01/2017 10:54am 09/01/20 17 11:31am TROPONIN I <=0.06 ng/mL Negative 0.07-0.25 ng/mL Intermediate >0.25 ng/mL Positive >0.6 ng/mL Critical Troponin I is cardiac specific. If present, indicates injury has occurred, indicating need to R/O myocardial infarct or high risk unstable angina (UA). Lactic Acid Level 0.8 MMOL/L 0.5-2.2 09/01/2017 10:54am 1:20pm Ammonia 24.0 UMOL/L 18.2-72.2 09/01/2017 10:54am 09/01/2017 11:15am Serum Alcohol < 10 MG/DL <10 09/01/2017 10:54am 017 11:30am Acetaminophen Level < 0.6 UG/ML L 08-3109/01/2017 10:54am 1 12:07pm Mcgraw Level 2.2 MMOL/L *H 1.0-1.2 09/01/2017 10:54am 017 11:15am LITH called to DR. DENNIS by Gregory Fish at 1115 on 09/01/17 Results read back Urine Phencyclidine Screen NEG NEG 09/01/2017 10 :20am 09/01/2017 11:20am Urine Benzodiazepines Screen NEG NEG 09/01/2017 10:20am 09/01/2017 11:20am Urine Cocaine Screen NEG NEG 09/01/2017 10:20am 09/01/2017 11:20am Urine Amphetamines Screen NEG NEG 09/01/2017 10: 20am 09/01/2017 11:20am Urine Marijuana (THC) Screen NEG NEG 09/01/2017 10:20am 09/01/2017 11:20am Urine Opiates Screen NEG NEG 09/01/2017 10:20am 09/01/2017 11:20am Urine Barbiturates Screen NEG NEG 09/01/2017 10: 20am 09/01/2017 11:20am Urine Tricyclic Antidepressants POS NEG 09/01/2017 10:20am 09/01/2017 11:20am Chain of Custody COCUST 09/01/2017 10:20am 08/04 11:20am Specimen analysis was performed without chain of custody handling. These results should be used for medical purposes only and not for any legal or employment evaluation purposes. Urine Color YELLOW YELLOW 09/01/2017 10:20am 7 11:12am Urine Clarity Clear CLEAR 09/01/2017 10:20am 017 11:12am Urine pH 5.5 4.5-7.5 09/01/2017 10:20am 09/01/2017 1 1:12am Urine Specific [place] 1.015 1.002-1.030 09/01 10:20am 09/01/2017 11:12am Urine Protein NEGATIVE NEGATIVE 09/01/2017 10:20am 09/01 11:12am Urine Glucose (UA) NEGATIVE NEGATIVE 09/01/2017 10:20am 09/01/2017 11:12am Urine Ketones NEGATIVE NEGATIVE 09/01/2017 10:20am 09/01 11:12am Urine Blood TRACE-INTACT NEGATIVE 09/01/2017 10:20am 11:12am Urine Nitrate NEGATIVE NEGATIVE 09/01/2017 10:20am 09/01 11:12am Urine Bilirubin NEGATIVE NEGATIVE 09/01/2017 10:20am 11:12am Urine Urobilinogen 0.2 EU/DL 0.2 09/01/2017 10:20am 11:12am Urine Leukocyte Esterase NEGATIVE NEGATIVE 09/01 10:20am 09/01/2017 11:12am Urine RBC 2-5 /HPF NONE SEEN 09/01/2017 10:20am 7 11:20am Urine WBC 0-2 /HPF NONE SEEN 09/01/2017 10:20am 7 11:20am Urine Bacteria NONE SEEN /HPF NONE SEEN 09/01/2017 10:20am 11:20am Urine Squamous Epithelial Cells 2-5 /HPF 09/01/2017 10:20am 09/01/2017 11:20am Urine Amorphous Sediment TRACE /HPF 09/01/2017 10:2 0am 09/01/2017 11:20am Urine Culture Reflexed NO 09/01/2017 10:20a m 09/01/2017 11:20am Procedures Procedure Status Date Provider(s) ROUTINE VENIPUNCTURE [...] 08/21/17 HIV-1/HIV-2 1 RESULT ANTBDY Completed 08/21/17 CT Head WO contrast Completed 06/17/17 Ari [...] of oxygen delivery Completed 09/01/17 LUPIS ABARCA MD Assessment of oxygen delivery Completed 09/01/17 LUPIS ABARCA MD Aerosol treatment by respiratory therapy Completed LUPIS MARTINEZ MD Aerosol treatment by respiratory therapy Completed LUPIS MARTINEZ MD Administration of oxygen Completed 09/01/17 Wilma MARTINEZ MD Respiratory assistance for 15 minutes Completed 09/01/17 LUPIS MARTINEZ MD X-ray of chest, PA and lateral views Completed 09/03/17 ROSETTE MCKENNA DO Encounters Encounter Location Arrival/Admit Date Discharge/Depart Date Attending Provider Discharged Inpatient [facility] 09/01/17 2:45pm 09/03/17 11: 20am LUPIS MARTINEZ MD Registered Clinic [facility] 08/21/17 9:10am HUMERA HOBBS PA-C Departed Emergency Room [facility] 07/17/17 9:40am 07/17/17 11:17am TERRENCE TRIPP DO Departed Emergency Room [facility] 07/16/17 6:57pm 07/17/17 2:11am EMMANUEL MURCIA Departed Emergency Room [facility] 06/17/17 9:45am 06/17/17 4:35pm OMER LOPEZ DO Registered Clinic [facility] 06/12/17 2:18pm LIBERTAD KING PA-C Registered Practice [facility] 06/12/17 1:30pm LIBERTAD HUMPHRIES PA-C Recent Diagnosis Bipolar disorder Bipolar disorder COPD exacerbation Confusion Agitation
== END 2020-01-10 22:19 | disposition home or self-care (01) ==
LOC: EDUNIT# 18:46 → ER 18:47
DX: A08.4 Viral intestinal infection, unspecified (principal)
CPT/HCPCS: 36415; 80053; 81000; 83735; 85025; 86141